=== PATIENT | female | born 1935 | race Caucasian/White ===

== ENCOUNTER → 2016-11-09 | Outpatient (CLI) | payer MEDICARE, BC ==
[~2016-11-09] MED LIST: PMX IVPB ONE; SODIUM CHLORIDE 0.9% 250 ML in EMPTY BAG 1 BAG IV PRN; SODIUM CHLORIDE 0.9% 500 ML in EMPTY BAG 1 BAG IV PRN; WATER FOR INJECTION IVPB ONE; ZOLEDRONIC ACID 5 MG in SODIUM CHLORIDE 0.9% 100 ML IV ONE; ZOLEDRONIC ACID IVPB ONE
[2016-11-09 12:42] VITALS: BP 156/73; PULSE 97; RESP 16; TEMP 98.7
== END | disposition home or self-care (01) ==
LOC: PROCWHC3 12:30
PROVIDERS: ATTEND Internal Medicine Endocrinology, Diabetes & Metabolism
DX: M88.9 Osteitis deformans of unspecified bone (principal); M81.0 Age-related osteoporosis without current pathological fracture
CPT/HCPCS: 96365; J3489

== ENCOUNTER → 2017-04-28 | Outpatient (CLI) | payer MEDICARE, BC ==
[2017-04-28 10:34] LABS: Aty Lym Flag Slight; CH 29.4; CHCM 33.8; HDW 2.73; HGB 12.7 gm/dL (11.4-16.0); MCH 30.9 pg (25.0-35.0); MCHC 35.4 g/dL (31.0-37.0); MCV 87.3 fL (80.0-100.0); Mean Platelet Volume 6.8; RBC 4.12 m/uL (3.80-5.40); RDW 13.5 % (11.5-15.5); WBC 4.9 k/uL (3.8-10.6); WBC (Perox) 4.84
[2017-04-28 11:25] LABS: Add Differential Manual Differential
[2017-04-28 11:27] LABS: Manual Review Performed; Nucleated Red Blood Cells 0 /100 WBC (0-0); Total Cells Counted 100
[2017-04-28 11:28] LABS: RBC Morphology Normal
[2017-04-28 13:44] LABS: Calcium 10.7 mg/dL (8.4-10.2); Potassium 5.5 mmol/L (3.5-5.1); Total Bilirubin 0.6 mg/dL (0.2-1.3); Total Protein 7.1 g/dL (6.3-8.2)
== END | disposition home or self-care (01) ==
LOC: LABWHC1 10:07
PROVIDERS: ATTEND Internal Medicine
DX: E03.9 Hypothyroidism, unspecified (principal); E55.9 Vitamin D deficiency, unspecified; I10 Essential (primary) hypertension; R53.83 Other fatigue
CPT/HCPCS: 36415; 80053; 82306; 83970; 84439; 84443; 84481; 85025

== ENCOUNTER → 2017-05-04 | Outpatient (CLI) | payer MEDICARE, BC ==
[2017-05-04 19:29] LABS: Hemoglobin A1C 5.9 % (4.2-6.1)
== END | disposition home or self-care (01) ==
LOC: LABWHC1 11:28
PROVIDERS: ATTEND Internal Medicine Endocrinology, Diabetes & Metabolism
DX: R73.09 Other abnormal glucose (principal)
CPT/HCPCS: 36415; 83036

== ENCOUNTER → 2017-05-19 | Outpatient (CLI) | payer MEDICARE, BC ==
[2017-05-19 09:33] LABS: ALT 28 U/L (9-52); AST 28 U/L (14-36); Alkaline Phosphatase 85 U/L (38-126); Anion Gap 8 mmol/L; Blood Urea Nitrogen 20 mg/dL (7-17); Carbon Dioxide 26 mmol/L (22-30); Chloride 107 mmol/L (98-107); Glucose 119 mg/dL (74-99); Non-African American GFR(MDRD) >60 (>60 ml/min/1.73 sqM); Potassium 4.8 mmol/L (3.5-5.1); Sodium 141 mmol/L (137-145); Total Bilirubin 0.5 mg/dL (0.2-1.3); Total Protein 7.1 g/dL (6.3-8.2)
== END | disposition home or self-care (01) ==
LOC: LABWHC1 08:48
PROVIDERS: ATTEND Internal Medicine Endocrinology, Diabetes & Metabolism
DX: E03.8 Other specified hypothyroidism (principal); E83.52 Hypercalcemia
CPT/HCPCS: 36415; 80053; 84439; 84443; 84480

== ENCOUNTER → 2017-06-29 | Outpatient (CLI) | payer MEDICARE, BC | END | disposition home or self-care (01) | LOC: LABWHC1 10:38 | PROVIDERS: ATTEND Internal Medicine Endocrinology, Diabetes & Metabolism | DX: E03.8 Other specified hypothyroidism (principal) | CPT/HCPCS: 36415; 84443 ==

== ENCOUNTER → 2017-07-21 | Outpatient (CLI) | payer MEDICARE, BC | END | disposition home or self-care (01) | LOC: LABWHC1 13:03 | PROVIDERS: ATTEND Internal Medicine Endocrinology, Diabetes & Metabolism | DX: E03.8 Other specified hypothyroidism (principal) | CPT/HCPCS: 36415; 84443 ==

== ENCOUNTER → 2017-09-21 | Outpatient (CLI) | payer MEDICARE, BC ==
[2017-09-21 13:57] LABS: ALT 30 U/L (9-52); AST 28 U/L (14-36); Alkaline Phosphatase 117 U/L (38-126); Anion Gap 8 mmol/L; Blood Urea Nitrogen 17 mg/dL (7-17); Calcium 9.8 mg/dL (8.4-10.2); Carbon Dioxide 27 mmol/L (22-30); Chloride 102 mmol/L (98-107); Glucose 118 mg/dL (74-99); Non-African American GFR(MDRD) >60 (>60 ml/min/1.73 sqM); Potassium 4.6 mmol/L (3.5-5.1); Sodium 137 mmol/L (137-145); Total Bilirubin 0.6 mg/dL (0.2-1.3); Total Protein 7.4 g/dL (6.3-8.2)
== END | disposition home or self-care (01) ==
LOC: LABWHC1 11:28
PROVIDERS: ATTEND Internal Medicine Endocrinology, Diabetes & Metabolism
DX: E03.8 Other specified hypothyroidism (principal); M88.9 Osteitis deformans of unspecified bone; E83.52 Hypercalcemia
CPT/HCPCS: 36415; 80053; 82306; 84075; 84443

== ENCOUNTER → 2018-01-03 | Outpatient (CLI) | payer MEDICARE, BC ==
[2018-01-03 14:18] LABS: Albumin 3.6 g/dL (3.5-5.0); Calcium 9.4 mg/dL (8.4-10.2); Potassium 4.3 mmol/L (3.5-5.1); Total Bilirubin 0.4 mg/dL (0.2-1.3); Total Protein 7.3 g/dL (6.3-8.2)
== END ==
LOC: LABWHC1 13:23
PROVIDERS: ATTEND Internal Medicine Endocrinology, Diabetes & Metabolism
DX: E83.52 Hypercalcemia (principal); M88.9 Osteitis deformans of unspecified bone; E03.9 Hypothyroidism, unspecified
CPT/HCPCS: 36415; 80053; 84075; 84443

== ENCOUNTER → 2018-01-13 | Outpatient (CLI) | payer MEDICARE, BC ==
[~2018-01-13] MED LIST changes: -PMX IVPB ONE; -SODIUM CHLORIDE 0.9% 250 ML in EMPTY BAG 1 BAG IV PRN; -WATER FOR INJECTION IVPB ONE; -ZOLEDRONIC ACID IVPB ONE
[2018-01-13 14:35] VITALS: BP 176/78; PULSE 73; RESP 16; TEMP 98.4
== END | disposition home or self-care (01) ==
LOC: PROCWHC3 14:08
PROVIDERS: ATTEND Internal Medicine Endocrinology, Diabetes & Metabolism
DX: M81.0 Age-related osteoporosis without current pathological fracture (principal); M88.9 Osteitis deformans of unspecified bone
CPT/HCPCS: 96365; J3489

== ENCOUNTER → 2019-03-23 | Outpatient (CLI) | payer MEDICARE, OTHER ==
[2019-03-23 14:52] LABS: HCT 37.5 % (34.0-46.0); HGB 11.9 gm/dL (11.4-16.0); MCH 28.8 pg (25.0-35.0); MCHC 31.7 g/dL (31.0-37.0); MCV 90.8 fL (80.0-100.0); Mean Platelet Volume 6.8; Platelet Count 247 k/uL (150-450); RBC 4.13 m/uL (3.80-5.40); RDW 13.7 % (11.5-15.5); WBC 3.6 k/uL (3.8-10.6)
[2019-03-23 23:13] LABS: Albumin 3.9 g/dL (3.80-4.90); Albumin/Globulin Ratio 1.34 (1.60-3.17); Anion Gap 11.6 mmol/L (4.00-12.00); Calcium 9.8 mg/dL (8.7-10.3); Carbon Dioxide 26.4 mmol/L (21.6-31.8); Globulin 2.9 g/dL (1.6-3.3); Potassium 4.4 mmol/L (3.5-5.5); Total Bilirubin 0.6 mg/dL (0.2-1.2); Total Protein 6.8 g/dL (6.2-8.2)
[2019-03-23 23:19] LABS: T4, Free (Free Thyroxine) 1.3 ng/dL (0.80-1.80)
[2019-03-24 00:13] LABS: Hemoglobin A1C 5.9 % (4.0-6.0)
== END | disposition home or self-care (01) ==
LOC: LABWHC1 13:53
PROVIDERS: ATTEND Internal Medicine Endocrinology, Diabetes & Metabolism
DX: E03.8 Other specified hypothyroidism (principal); M88.9 Osteitis deformans of unspecified bone; R73.09 Other abnormal glucose
CPT/HCPCS: 36415; 80053; 83036; 84439; 84443; 85027

== ENCOUNTER → 2019-04-05 | Outpatient (CLI) | payer MEDICARE, OTHER | END | disposition home or self-care (01) | LOC: LABWHC1 10:25 | PROVIDERS: ATTEND Internal Medicine Endocrinology, Diabetes & Metabolism | DX: M88.9 Osteitis deformans of unspecified bone (principal) | CPT/HCPCS: 36415; 84075 ==

== ENCOUNTER → 2019-04-19 | Outpatient (CLI) | payer MEDICARE, OTHER ==
[~2019-04-19] MED LIST changes: +SODIUM CHLORIDE 0.9% 500 ML 500 ML in EMPTY BAG 1 BAG IV PRN; -SODIUM CHLORIDE 0.9% 500 ML in EMPTY BAG 1 BAG IV PRN; +ZOLEDRONIC ACID 5 MG in SODIUM CHLORIDE 0.9% 100 ML IV NR; -ZOLEDRONIC ACID 5 MG in SODIUM CHLORIDE 0.9% 100 ML IV ONE
[2019-04-19 11:33] VITALS: BP 163/75; PULSE 72; RESP 16; TEMP 98
== END ==
LOC: PROCWHC3 10:06
PROVIDERS: ATTEND Internal Medicine Endocrinology, Diabetes & Metabolism
DX: M81.0 Age-related osteoporosis without current pathological fracture (principal)
CPT/HCPCS: 96365; J3489

== ENCOUNTER 2019-10-21 00:10 | Inpatient (IN) | payer MEDICARE, OTHER ==
[2019-10-21] MEDS ORDERED: SODIUM CHLORIDE 0.9% 500 ML 500 ML IV STA (00:14)
[2019-10-21] MEDS ORDERED: IBUPROFEN 600 MG TAB PO STA (00:23)
[2019-10-21] MEDS: SODIUM CHLORIDE 0.9% 500 ML 500 ML IV SCH ×2 (00:42→02:24)
--- NOTE | 2019-10-21 00:52 | ED ---
SOB HPI - General Chief Complaint: Shortness of Breath Stated Complaint: ANGELA Time Seen by Provider: 10/21/19 00:14 Source: EMS Mode of arrival: EMS Limitations: no limitations - History of Present Illness Initial Comments: Stephanie is an 84-year-old female with a history of COPD was brought to the ER today via EMS for evaluation of shortness of breath. Patient reports she has been feeling progressively worsening shortness of breath for number of days, she states she waited too long to come to the hospital now she just can't breathe. EMS reports they found the patient in a tripoding position hypoxic with oxygen saturations in the low 80s. She was treated with 3 updrafts in route to the hospital with mild improvement in her work of breathing. Oxygen saturation improved with nonrebreather mask. - Related Data Home Medications Medication Instructions Recorded Confirmed Valsartan/Hydrochlorothiazide 1 tab PO DAILY 07/03/14 04/19/19 [Diovan Hct 160-12.5 mg Tab] Budesonide [Pulmicort] 2 puff INHALATION DIRECTED PRN 04/19/19 04/19/19 Gabapentin [Neurontin] 200 mg PO HS 04/19/19 04/19/19 Levothyroxine Sodium 25 mcg PO DAILY 04/19/19 04/19/19 Allergies Allergy/AdvReac Type Severity Reaction Status Date / Time Penicillins Allergy Rash/Hives Verified 10/21/19 00:21 Review of Systems ROS Statement: Those systems with pertinent positive or pertinent negative responses have been documented in the HPI. ROS Other: All systems not noted in ROS Statement are negative. Past Medical History Past Medical History: Hypertension, Respiratory Disorder Additional Past Medical History / Comment(s): NUMBNESS AND TINGLING BILATERAL F EET. History of Any Multi-Drug Resistant Organisms: None Reported Past Surgical History: Orthopedic Surgery, Tonsillectomy, Tubal Ligation Additional Past Surgical History / Comment(s): right hip replacement, cataract surgery Past Anesthesia/Blood Transfusion Reactions: No Reported Reaction Past Psychological History: No Psychological Hx Reported Smoking Status: Former smoker Past Alcohol Use History: None Reported Past Drug Use History: None Reported General Exam - General Exam Comments Initial Comments: Physical Exam GENERAL: Moderate respiratory distress HENT: Normocephalic, Atraumatic. EYES: PERRL, EOMI PULMONARY: Tachypnea Wheezing in all lung tavarez Moderate retractions CARDIOVASCULAR: Tachycardia, regular ABDOMEN: Soft and nontender with normal bowel sounds. SKIN: Dry : Deferred NEUROLOGIC: Very hard of hearing Patient is alert and oriented x3. Moving all extremities spontaneously MUSCULOSKELETAL: Normal extremities with adequate strength and full range of motion. No lower extremity swelling or edema. No calf tenderness. PSYCHIATRIC: Normal psychiatric evaluation. Limitations: no limitations Course Vital Signs 10/21/19 10/21/19 10/21/19 00:12 00:27 00:42 Temperature 99.9 F H 100.7 F H 100.6 F H Pulse Rate 122 H 118 H 120 H Respiratory 40 H 40 H 39 H Rate Blood Pressure 158/79 161/80 O2 Sat by Pulse 94 L 97 98 Oximetry 10/21/19 10/21/19 10/21/19 00:57 01:08 01:12 Temperature 100.5 F H 100.0 F H Pulse Rate 120 H 110 H 115 H Respiratory 36 H 36 H 34 H Rate Blood Pressure 174/96 142/57 O2 Sat by Pulse 95 95 Oximetry 10/21/19 10/21/19 10/21/19 01:15 01:20 01:27 Temperature 98.6 F Pulse Rate 112 H 112 H 112 H Respiratory 31 H 30 H 28 H Rate Blood Pressure 133/58 O2 Sat by Pulse 95 Oximetry 10/21/19 02:25 Temperature Pulse Rate 100 Respiratory 34 H Rate Blood Pressure 119/53 O2 Sat by Pulse 96 Oximetry Procedures - Sepsis Sepsis Focused Exam #2 Sepsis Focused Exam Date: 10/21/19 Sepsis Focused Exam Time: 03:00 Sepsis Focused Exam Complete: Yes Vital Signs & RN Notes Reviewed: Yes Capillary Refill: < 2 Seconds: Fingers, Toes Peripheral Pulses: Normal: Radial (R), Radial (L) Skin Color: Normal for Patient Respiratory Exam: wheezes Cardiovascular Exam: regular rate Medical Decision Making - Medical Decision Making Patient was seen and evaluated history is obtained from patient and EMS 84-year-old female COPD who presents with a severe COPD exacerbation, tachypnea, tachycardia oral temp of 99 though I think this is falsely low due to tach and tachypnea Septic workup was initiated as well as flu swab being Patient was placed on BiPAP for respiratory support Labs resulted with elevated BNP consistent with CHF however chest x-ray had no obvious pleural effusions or fluid overload Labs otherwise within normal limits Patient remained on BiPAP until 3 AM at which time she was no longer tolerating her requested to taken off her oxygenation had improved, heart rate had improved, patient was removed from BiPAP Patient with a low white count likely related to viral suppression as she likely has a viral URI. Lactic acid was negative she had normal kidney function. Initially the patient been ordered at 1500 mL normal saline bolus and her ideal body weight of 48 kg however given the patient has evidence of congestive heart failure decision was made to stop the bolus after 500 mL, patient's heart rate had improved at that time. The patient's advanced age and BiPAP requirement decision was made to admit her for COPD and CHF. Patient care was discussed with Dr. nic pearson who agrees with plan for admission. - Lab Data Result diagrams: 10/21/19 00:33 10/21/19 00:33 Lab Results 10/21/19 10/21/19 10/21/19 Range/Units 00:22 00:33 00:33 WBC 2.8 L (3.8-10.6) k/uL RBC 3.99 (3.80-5.40) m/uL Hgb 11.7 (11.4-16.0) gm/dL Hct 36.5 (34.0-46.0) % MCV 91.3 (80.0-100.0) fL MCH 29.2 (25.0-35.0) pg MCHC 32.0 (31.0-37.0) g/dL RDW 13.5 (11.5-15.5) % Plt Count 197 (150-450) k/uL Neutrophils % 58 % Lymphocytes % 27 % Monocytes % 10 % Eosinophils % 2 % Basophils % 1 % Neutrophils # 1.6 (1.3-7.7) k/uL Lymphocytes # 0.7 L (1.0-4.8) k/uL Monocytes # 0.3 (0-1.0) k/uL Eosinophils # 0.0 (0-0.7) k/uL Basophils # 0.0 (0-0.2) k/uL PT (9.0-12.0) sec INR (<1.2) APTT (22.0-30.0) sec Sodium 135 L (137-145) mmol/L Potassium 3.9 (3.5-5.1) mmol/L Chloride 103 (98-107) mmol/L Carbon Dioxide 19 L (22-30) mmol/L Anion Gap 13 mmol/L BUN 21 H (7-17) mg/dL Creatinine 1.00 (0.52-1.04) mg/dL Est GFR (CKD-EPI)AfAm 60 (>60 ml/min/1.73 sqM) Est GFR (CKD-EPI)NonAf 52 (>60 ml/min/1.73 sqM) Glucose 148 H (74-99) mg/dL Plasma Lactic Acid Basilio (0.7-2.0) mmol/L Calcium 9.4 (8.4-10.2) mg/dL Total Bilirubin 0.7 (0.2-1.3) mg/dL AST 37 H (14-36) U/L ALT 20 (4-34) U/L Alkaline Phosphatase 135 H (38-126) U/L NT-Pro-B Natriuret Pep pg/mL Total Protein 8.3 H (6.3-8.2) g/dL Albumin 4.4 (3.5-5.0) g/dL Urine Color Urine Appearance (Clear) Urine pH (5.0-8.0) Ur Specific [place] (1.001-1.035) Urine Protein (Negative) Urine Glucose (UA) (Negative) Urine Ketones (Negative) Urine Blood (Negative) Urine Nitrite (Negative) Urine Bilirubin (Negative) Urine Urobilinogen (<2.0) mg/dL Ur Leukocyte Esterase (Negative) Urine RBC (0-5) /hpf Urine WBC (0-5) /hpf Ur Squamous Epith Cells (0-4) /hpf Urine Bacteria (None) /hpf Urine Mucus (None) /hpf Influenza Type A RNA Not Detected (Not Detectd) Influenza Type B (PCR) Not Detected (Not Detectd) 10/21/19 10/21/19 10/21/19 Range/Units 00:33 00:33 00:33 WBC (3.8-10.6) k/uL RBC (3.80-5.40) m/uL Hgb (11.4-16.0) gm/dL Hct (34.0-46.0) % MCV (80.0-100.0) fL MCH (25.0-35.0) pg MCHC (31.0-37.0) g/dL RDW (11.5-15.5) % Plt Count (150-450) k/uL Neutrophils % % Lymphocytes % % Monocytes % % Eosinophils % % Basophils % % Neutrophils # (1.3-7.7) k/uL Lymphocytes # (1.0-4.8) k/uL Monocytes # (0-1.0) k/uL Eosinophils # (0-0.7) k/uL Basophils # (0-0.2) k/uL PT 9.6 (9.0-12.0) sec INR 0.9 (<1.2) APTT 23.8 (22.0-30.0) sec Sodium (137-145) mmol/L Potassium (3.5-5.1) mmol/L Chloride (98-107) mmol/L Carbon Dioxide (22-30) mmol/L Anion Gap mmol/L BUN (7-17) mg/dL Creatinine (0.52-1.04) mg/dL Est GFR (CKD-EPI)AfAm (>60 ml/min/1.73 sqM) Est GFR (CKD-EPI)NonAf (>60 ml/min/1.73 sqM) Glucose (74-99) mg/dL Plasma Lactic Acid Basilio 1.7 (0.7-2.0) mmol/L Calcium (8.4-10.2) mg/dL Total Bilirubin (0.2-1.3) mg/dL AST (14-36) U/L ALT (4-34) U/L Alkaline Phosphatase (38-126) U/L NT-Pro-B Natriuret Pep 1540 pg/mL Total Protein (6.3-8.2) g/dL Albumin (3.5-5.0) g/dL Urine Color Urine Appearance (Clear) Urine pH (5.0-8.0) Ur Specific [place] (1.001-1.035) Urine Protein (Negative) Urine Glucose (UA) (Negative) Urine Ketones (Negative) Urine Blood (Negative) Urine Nitrite (Negative) Urine Bilirubin (Negative) Urine Urobilinogen (<2.0) mg/dL Ur Leukocyte Esterase (Negative) Urine RBC (0-5) /hpf Urine WBC (0-5) /hpf Ur Squamous Epith Cells (0-4) /hpf Urine Bacteria (None) /hpf Urine Mucus (None) /hpf Influenza Type A RNA (Not Detectd) Influenza Type B (PCR) (Not Detectd) 10/21/19 Range/Units 00:55 WBC (3.8-10.6) k/uL RBC (3.80-5.40) m/uL Hgb (11.4-16.0) gm/dL Hct (34.0-46.0) % MCV (80.0-100.0) fL MCH (25.0-35.0) pg MCHC (31.0-37.0) g/dL RDW (11.5-15.5) % Plt Count (150-450) k/uL Neutrophils % % Lymphocytes % % Monocytes % % Eosinophils % % Basophils % % Neutrophils # (1.3-7.7) k/uL Lymphocytes # (1.0-4.8) k/uL Monocytes # (0-1.0) k/uL Eosinophils # (0-0.7) k/uL Basophils # (0-0.2) k/uL PT (9.0-12.0) sec INR (<1.2) APTT (22.0-30.0) sec Sodium (137-145) mmol/L Potassium (3.5-5.1) mmol/L Chloride (98-107) mmol/L Carbon Dioxide (22-30) mmol/L Anion Gap mmol/L BUN (7-17) mg/dL Creatinine (0.52-1.04) mg/dL Est GFR (CKD-EPI)AfAm (>60 ml/min/1.73 sqM) Est GFR (CKD-EPI)NonAf (>60 ml/min/1.73 sqM) Glucose (74-99) mg/dL Plasma Lactic Acid Basilio (0.7-2.0) mmol/L Calcium (8.4-10.2) mg/dL Total Bilirubin (0.2-1.3) mg/dL AST (14-36) U/L ALT (4-34) U/L Alkaline Phosphatase (38-126) U/L NT-Pro-B Natriuret Pep pg/mL Total Protein (6.3-8.2) g/dL Albumin (3.5-5.0) g/dL Urine Color Yellow Urine Appearance Cloudy H (Clear) Urine pH 5.0 (5.0-8.0) Ur Specific [place] 1.014 (1.001-1.035) Urine Protein 1+ H (Negative) Urine Glucose (UA) Negative (Negative) Urine Ketones Negative (Negative) Urine Blood Small H (Negative) Urine Nitrite Negative (Negative) Urine Bilirubin Negative (Negative) Urine Urobilinogen <2.0 (<2.0) mg/dL Ur Leukocyte Esterase Negative (Negative) Urine RBC 4 (0-5) /hpf Urine WBC 6 H (0-5) /hpf Ur Squamous Epith Cells <1 (0-4) /hpf Urine Bacteria Few H (None) /hpf Urine Mucus Rare H (None) /hpf Influenza Type A RNA (Not Detectd) Influenza Type B (PCR) (Not Detectd) - EKG Data -: EKG Interpreted by Me EKG Comments: EKG was obtained due to tachycardia and shortness of breath, EKG obtained at 12:25 AM, rate is 1:15 rhythm is sinus tachycardia there is normal axis are normal intervals, WI 154, QRS 136, QTC is 398 there is no acute ST elevations or depressions no evidence of acute ischemia or infarction. Critical Care Time Critical Care Time: Yes Total Critical Care Time: 30 Critical Care Time: Critical Care Time Critical care time was exclusive of separately billable procedures and treating other patients and teaching time. Critical care was necessary to treat or prevent imminent or life-threatening deterioration. Given the critical condition in which the patient arrived, the patient was immediately assessed by myself and the nurse, and cardiac monitoring initiated due to the potential for rapid decompensation of the patient's clinical condition. During the course of the patients stay, I spent a considerable amount of time at the bedside performing serial re-evaluations of the patient's hemodynamic and clinical status because of the recognized potential threat to life or limb in this condition. I then had a chance to review not only all of the available current laboratory and radiographic studies obtained today, but I also reviewed old records available to me at the time. Additionally, any ancillary information available including property man records were reviewed. Sequential vital signs were obtained. Disposition Clinical Impression: Congestive heart failure, Acute exacerbation of chronic obstructive pulmonary disease Disposition: ADMITTED IP TO THIS HOSP Condition: Serious Is patient prescribed a controlled substance at d/c from ED?: No
[2019-10-21] MEDS ORDERED: ACETYLCYSTEINE 800 MG/4 ML VIAL INHALATION STA (00:55)
[2019-10-21] MEDS ORDERED: IPRATROPIUM-ALBUTEROL 3 ML NEB INHALATION STA (00:56)
--- NOTE | 2019-10-21 00:58 | XR ---
EXAMINATION TYPE: XR chest 1V portable DATE OF EXAM: 10/21/2019 COMPARISON: 02/27/2019 HISTORY: Difficulty breathing TECHNIQUE: Joe view FINDINGS: There is no heart failure nor confluent pneumonic infiltrate. Costophrenic angles are clear . There are chest leads. IMPRESSION: No active cardiopulmonary disease. No change.
[2019-10-21 01:03] LABS: Basophils % (A) 1 %; Eosinophils % (A) 2 %; HCT 36.5 % (34.0-46.0); HGB 11.7 gm/dL (11.4-16.0); Lymphocytes # (A) 0.7 k/uL (1.0-4.8); Lymphocytes % (A) 27 %; MCH 29.2 pg (25.0-35.0); MCV 91.3 fL (80.0-100.0); Mean Platelet Volume 7.3; Monocytes # (A) 0.3 k/uL (0-1.0); Monocytes % (A) 10 %; Neutrophils # (A) 1.6 k/uL (1.3-7.7); Neutrophils % (A) 58 %; Platelet Count 197 k/uL (150-450); RBC 3.99 m/uL (3.80-5.40); RDW 13.5 % (11.5-15.5); WBC 2.8 k/uL (3.8-10.6)
[2019-10-21 01:17] LABS: Appearance,Urine Cloudy (Clear); Bacteria,Urine Few /hpf; Bilirubin,Urine Negative (Negative); Blood,Urine Small (Negative); Color,Urine Yellow; Glucose,Urine (UA) Negative (Negative); Ketones,Urine Negative (Negative); Leukocyte Esterase,Urine Negative (Negative); Mucus,Urine Rare /hpf; Nitrite,Urine Negative (Negative); Protein,Urine 1+ (Negative); RBC,Urine 4 /hpf (0-5); Specific Gravity,Urine 1.014 (1.001-1.035); Squamous Epithelial Cell,Urine <1 /hpf (0-4); Urobilinogen,Urine <2.0 mg/dL (<2.0); WBC,Urine 6 /hpf (0-5)
[2019-10-21 01:17] LABS: INR 0.9 (<1.2); Partial Thromboplastin Time 23.8 sec (22.0-30.0); Prothrombin Time 9.6 sec (9.0-12.0)
[2019-10-21 01:19] LABS: Albumin 4.4 g/dL (3.5-5.0); Calcium 9.4 mg/dL (8.4-10.2); Potassium 3.9 mmol/L (3.5-5.1); Total Bilirubin 0.7 mg/dL (0.2-1.3); Total Protein 8.3 g/dL (6.3-8.2)
[2019-10-21] MEDS ORDERED: IPRATROPIUM-ALBUTEROL 3 ML NEB INHALATION PRN (02:05)
[2019-10-21] MEDS ORDERED: FUROSEMIDE 10 MG/ML 4 ML VIAL IV STA (02:06)
--- NOTE | 2019-10-21 08:03 | P.HPIM ---
History of Present Illness H&P Date: 10/21/19 The patient is an 84 yo F with a PMH of COPD, hx of smoking (2 PPD x 40 years, quit 15 years ago), HTN, and hypothyroidism who presented to the ED w/ cough on- going for ~ 1 week. The patient reports that she has a long standing history of smoking and felt that she had gotten bronchitis, though her breathing continued to worsen. She states that the cough the initially productive of green phlegm, though is no longer productive. She used her inhalers at home without much improvement. She denied any additional complaints. Denied chest pain, fever, chills, nausea, vomiting, diaphoresis, leg pain, or leg swelling. Denied orthopnea, PND, abdominal pain, or diarrhea. She underwent an extensive evalu ation in the ED w/ CXR that was unremarkable and EKG showing sinus tachycardia @ 115 bpm. She was initially placed on BiPAP after which her breathing improved and the BiPAP was removed. Laboratory evaluation had revealed a WBC count of 2.8, Hgb 11.7, plt 197, Na 135, K 3.9, BUN 21, Cr 1.00, BNP 1540. She is being admitted to the medicine service for management of acute COPD exacerbation. Review of Systems Pertinent positives and negatives as discussed in HPI, a complete review of systems was performed and all other systems are negative. Past Medical History Past Medical History: Hypertension, Respiratory Disorder Additional Past Medical History / Comment(s): NUMBNESS AND TINGLING BILATERAL FEET. History of Any Multi-Drug Resistant Organisms: None Reported Past Surgical History: Orthopedic Surgery, Tonsillectomy, Tubal Ligation Additional Past Surgical History / Comment(s): right hip replacement, cataract surgery Past Anesthesia/Blood Transfusion Reactions: No Reported Reaction Past Psychological History: No Psychological Hx Reported Smoking Status: Former smoker Past Alcohol Use History: None Reported Past Drug Use History: None Reported Medications and Allergies Home Medications Medication Instructions Recorded Confirmed Type Valsartan/Hydrochlorothiazide 1 tab PO DAILY 07/03/14 04/19/19 History [Diovan Hct 160-12.5 mg Tab] Budesonide [Pulmicort] 2 puff INHALATION DIRECTED PRN 04/19/19 04/19/19 History Gabapentin [Neurontin] 200 mg PO HS 04/19/19 04/19/19 History Levothyroxine Sodium 25 mcg PO DAILY 04/19/19 04/19/19 History Allergies Allergy/AdvReac Type Severity Reaction Status Date / Time Penicillins Allergy Rash/Hives Verified 10/21/19 00:21 Physical Exam Vitals: Vital Signs Temp Pulse Pulse Resp BP BP Pulse Ox 10/21/19 03:48 108 H 24 10/21/19 03:31 99.2 F 105 H 24 126/61 98 10/21/19 02:25 100 34 H 119/53 96 10/21/19 01:27 98.6 F 112 H 28 H 133/58 95 10/21/19 01:20 112 H 30 H 10/21/19 01:15 112 H 31 H 10/21/19 01:12 100.0 F H 115 H 34 H 142/57 95 10/21/19 01:08 110 H 36 H 10/21/19 00:57 100.5 F H 120 H 36 H 174/96 95 10/21/19 00:42 100.6 F H 120 H 39 H 161/80 98 10/21/19 00:27 100.7 F H 118 H 40 H 158/79 97 10/21/19 00:12 99.9 F H 122 H 40 H 94 L Intake and Output 10/20/19 10/21/19 10/21/19 22:59 06:59 14:59 Output Total 550 Balance -550 Output: Urine 550 Other: Voiding Method Toilet # Voids 1 Weight 72 kg General: non toxic, no distress, appears at stated age, obese Derm: no unusual rashes/lesions no unusual ecchymoses, warm, dry Head: atraumatic, normocephalic, symmetric Eyes: EOMI, no lid lag, anicteric sclera, pupils equal round reactive to light ENT: Nose and ears atraumatic, no thrush, no pharyngeal erythema Neck: No thyromegaly, no cervical lymphadenopathy, trachea midline, supple Mouth: no lip lesion, mucus membranes moist Cardiovascular: S1S2 reg, no murmur, positive posterior tibial pulse bilateral, no edema, capillary refill less than 2 seconds Lungs: Bilateral expiratory mild wheezing and scattered ronchi, no rales, no accessory muscle use Abdominal: soft, nontender to palpation, no guarding, no appreciable organomegaly, normal bowel sounds Ext: no gross muscle atrophy, muscle strength 5 out of 5 in all 4 extremities grossly, no contractures, Neuro: CN II-XI grossly intact, light touch intact all 4 extremities, finger to nose within normal limits, Psych: Alert, oriented, appropriate affect Results CBC & Chem 7: 10/21/19 00:33 10/21/19 00:33 Labs: Abnormal Lab Results - Last 24 Hours (Table) 10/21/19 10/21/19 10/21/19 Range/Units 00:33 00:33 00:55 WBC 2.8 L (3.8-10.6) k/uL Lymphocytes # 0.7 L (1.0-4.8) k/uL Sodium 135 L (137-145) mmol/L Carbon Dioxide 19 L (22-30) mmol/L BUN 21 H (7-17) mg/dL Glucose 148 H (74-99) mg/dL AST 37 H (14-36) U/L Alkaline Phosphatase 135 H (38-126) U/L Total Protein 8.3 H (6.3-8.2) g/dL Urine Appearance Cloudy H (Clear) Urine Protein 1+ H (Negative) Urine Blood Small H (Negative) Urine WBC 6 H (0-5) /hpf Urine Bacteria Few H (None) /hpf Urine Mucus Rare H (None) /hpf Assessment and Plan Plan: Acute COPD exacerbation with tracheobronchitis -C/w Duonebs -Start patient on Solumedrol -Pulmonary consulted (patient follows w/ Dr Bateman in clinic) -Supplemental oxygen -Influenza swab neg -Insulin sliding scale -C/w home Symbicort Elevated BNP -No documented hx of CHF -Currently not in fluid overload -Obtain Echocardiogram Leukopenia -Monitor for now -Pt w/ possible viral infection Metabolic alkalosis -Likely secondary to chronic hypercapnia -Obtain baseline ABG -Monitor for now DVT prophylaxis -Heparin subq The patient is admitted with an anticipated more than 2 midnight stay for evalu ation of acute COPD exacerbation CODE STATUS: No Code Discussed with: Patient Anticipated discharge date: 2-[address]: Home A total of 40 minutes was spent on the care of this complex patient more than 50% of the time was spent in counseling and care coordination.
[2019-10-21] MEDS ORDERED: predniSONE 20 MG TAB PO SCH (09:00)
[2019-10-21] MEDS ORDERED: MELATONIN 5 MG TABLET PO PRN (09:01)
[2019-10-21] MEDS ORDERED: ALBUTEROL NEBULIZED 2.5 MG/3 ML INHALATION PRN (09:01)
[2019-10-21] MEDS ORDERED: AZITHROMYCIN 500 MG in SODIUM CHLORIDE 0.9% 250 ML IVPB STA (09:01)
[2019-10-21] MEDS ORDERED: ONDANSETRON 4 MG/2 ML VIAL IVP PRN (09:01)
[2019-10-21] MEDS: IPRATROPIUM-ALBUTEROL 3 ML NEB INHALATION SCH ×4 (09:07→21:58)
[2019-10-21] MEDS: ACETAMINOPHEN TAB 325 MG TAB PO PRN (10:43)
[2019-10-21] MEDS: guaiFENesin 600 MG TABLET.ER PO SCH ×2 (10:44→20:24)
[2019-10-21] MEDS: LORazepam 2 MG/ML INJ IV PRN (11:01)
[2019-10-21] MEDS ORDERED: DILTIAZEM DRIP BOLUS FROM BAG 1 MG SOLN IV ONE (12:02)
[2019-10-21 12:09] LABS: Glucose,Whole Blood 139 mg/dL (75-99)
--- NOTE | 2019-10-21 12:43 | P.CNPUL ---
History of Present Illness Consult date: 10/21/19 Requesting physician: Palma Chavis Reason for consult: dyspnea, COPD Chief complaint: Shortness of breath History of present illness: This is a pleasant 84-year-old female patient who follows with Dr. Goncalves as her primary care physician. She has a history of hypertension and hypothyroidism. She is a former smoker of 50 years. Quit in 1999. She also has a history of chronic obstructive pulmonary disease with FEV1 value 81% of predicted and follows with Dr. Bateman in our office for the same. She is maintained on Pulmicort and Perforomist inhalations along with albuterol. She presented here to the emergency room shortly after midnight by EMS with worsening shortness of breath for several days prior to her arrival. She was sitting up in a tripod position her saturations were in the low 80s. She received updraft treatments in route and placed on a nonrebreather mask and her symptoms improved. She received 2 L of fluid resuscitation, 40 mg of IV Lasix 1. She was admitted for an acute exacerbation of her COPD. She is seen today on the selective care unit. She is currently awake and alert sitting up in bed. Still somewhat bronchospastic and wheezy. Still some dyspnea on minimal exertion. Tachycardic. Maintaining O2 saturations in the mid 90s on 2 L/m per nasal cannul a. White count 2.8. Hemoglobin 11.7. Creatinine 1.00. Bicarb 19. Influenza screen negative. Urine culture pending. Echocardiogram pending. Chest x-ray shows no acute pulmonary process. Review of Systems REVIEW OF SYSTEMS: CONSTITUTIONAL: Denies any recent significant weight loss or weight gain. EYES: Denies change in vision. EARS, NOSE, MOUTH, THROAT: Denies headaches, denies sore throat. CARDIOVASCULAR: Denies chest pain, palpitations or syncopal episodes. RESPIRATORY: Positive for shortness of breath, cough, congestion no hemoptysis. GASTROINTESTINAL: Denies change in appetite, denies abdominal pain GENITOURINARY: Denies hematuria, denies infections. MUSKULOSKELETAL: Denies pain, denies swelling. INTEGUMENTARY: Denies rash, denies eczema. NEUROLOGICAL: Denies recent memory loss, no recent seizure activity. PSYCHIATRIC: Denies anxiety, denies depression. HEMATOLOGIC/LYMPHATIC: Denies anemia, denies enlarged lymph nodes. Past Medical History Past Medical History: Hypertension, Respiratory Disorder Additional Past Medical History / Comment(s): 50 year smoking history however quit in 1999. Numbness and tingling of the bilateral feet History of Any Multi-Drug Resistant Organisms: None Reported Past Surgical History: Orthopedic Surgery, Tonsillectomy, Tubal Ligation Additional Past Surgical History / Comment(s): right hip replacement, cataract surgery Past Anesthesia/Blood Transfusion Reactions: No Reported Reaction Past Psychological History: No Psychological Hx Reported Smoking Status: Former smoker Past Alcohol Use History: None Reported Past Drug Use History: None Reported Additional History: Denies any significant family history. Medications and Allergies Home Medications Medication Instructions Recorded Confirmed Type Gabapentin [Neurontin] 100 - 200 mg PO HS 04/19/19 10/21/19 History Levothyroxine Sodium 25 mcg PO DAILY 04/19/19 10/21/19 History Albuterol Nebulized [Ventolin 2.5 mg INHALATION RT-TID 10/21/19 10/21/19 History Nebulized] Losartan/Hydrochlorothiazide 0.5 tab PO QAM 10/21/19 10/21/19 History [Losartan-Hctz 100-25 mg Tab] Allergies Allergy/AdvReac Type Severity Reaction Status Date / Time Penicillins Allergy Rash/Hives Verified 10/21/19 08:57 Physical Exam Vitals: Vital Signs Temp Pulse Pulse Resp BP BP Pulse Ox 10/21/19 09:22 110 H 10/21/19 09:10 102 H 97 10/21/19 08:00 101.4 F H 114 H 34 H 166/77 10/21/19 03:48 108 H 24 10/21/19 03:31 99.2 F 105 H 24 126/61 98 10/21/19 02:25 100 34 H 119/53 96 10/21/19 01:27 98.6 F 112 H 28 H 133/58 95 10/21/19 01:20 112 H 30 H 10/21/19 01:15 112 H 31 H 10/21/19 01:12 100.0 F H 115 H 34 H 142/57 95 10/21/19 01:08 110 H 36 H 10/21/19 00:57 100.5 F H 120 H 36 H 174/96 95 10/21/19 00:42 100.6 F H 120 H 39 H 161/80 98 10/21/19 00:27 100.7 F H 118 H 40 H 158/79 97 10/21/19 00:12 99.9 F H 122 H 40 H 94 L Intake and Output 10/20/19 10/21/19 10/21/19 22:59 06:59 14:59 Output Total 550 Balance -550 Output: Urine 550 Other: Voiding Method Toilet # Voids 1 1 # Bowel Movements 1 Weight 72 kg GENERAL EXAM: Alert, pleasant 84-year-old female patient, on 2 L nasal cannula, active, comfortable in no apparent distress. HEAD: Normocephalic. EYES: Normal reaction of pupils, equal size. NOSE: Clear with pink turbinates. THROAT: No erythema or exudates. NECK: No masses, no JVD. CHEST: No chest wall deformity. LUNGS: Equal air entry with bilateral end expiratory wheeze, diminished. CVS: S1 and S2 normal with no audible murmur, regular rhythm. ABDOMEN: No hepatosplenomegaly, normal bowel sounds, no guarding or rigidity. SPINE: No scoliosis or deformity SKIN: No rashes CENTRAL NERVOUS SYSTEM: No focal deficits, tone is normal in all 4 extremities. EXTREMITIES: There is no peripheral edema. No clubbing, no cyanosis. Peripheral pulses are intact. Results - Laboratory Findings CBC and BMP: 10/21/19 00:33 10/21/19 00:33 PT/INR, D-dimer PT 9.6 sec (9.0-12.0) 10/21/19 00:33 INR 0.9 (<1.2) 10/21/19 00:33 Abnormal lab findings: Abnormal Labs 10/21/19 10/21/19 10/21/19 00:33 00:33 00:55 WBC 2.8 L Lymphocytes # 0.7 L Sodium 135 L Carbon Dioxide 19 L BUN 21 H Glucose 148 H POC Glucose (mg/dL) AST 37 H Alkaline Phosphatase 135 H Total Protein 8.3 H Urine Appearance Cloudy H Urine Protein 1+ H Urine Blood Small H Urine WBC 6 H Urine Bacteria Few H Urine Mucus Rare H 10/21/19 12:07 WBC Lymphocytes # Sodium Carbon Dioxide BUN Glucose POC Glucose (mg/dL) 139 H AST Alkaline Phosphatase Total Protein Urine Appearance Urine Protein Urine Blood Urine WBC Urine Bacteria Urine Mucus - Diagnostic Findings Chest x-ray: image reviewed (No acute pulmonary process) Assessment and Plan Assessment: 1 Acute exacerbation of chronic obstructive pulmonary disease 2 Acute hypoxemic respiratory failure secondary to above 3 50 year pack per day smoking history however quit several years ago 4 Hypertension. 5 Hypothyroidism Plan The patient was seen and evaluated by Dr. Bundy. Chest x-ray and labs reviewed Continue IV Solu-Medrol, DuoNeb inhalations, Pulmicort and Perforomist inhalations Empiric antibiotics in the form of azithromycin Echocardiogram pending We'll continue to follow make further recommendations based on her clinical status I, the cosigning physician, performed a history & physical examination of the patient. Lungs sounds with bilateral end expiratory wheeze, diminished. Maint aining good O2 saturations in the 90s on 2 L/m per nasal cannula. I discussed the assessment and plan of care with my nurse practitioner, Yolis Barksdale. I attest to the above note as dictated by her. Time with Patient: Greater than 30
--- NOTE | 2019-10-21 13:01 | ECHOF ---
Referral Reason:CHF MEASUREMENTS -------- HEIGHT: 152.4 cm WEIGHT: 63.5 kg BP: 126/61 IVSd: 1.1 cm (0.6 - 1.1) LVIDd: 3.2 cm (3.9 - 5.3) LVPWd: 1.3 cm (0.6 - 1.1) IVSs: 1.6 cm LVIDs: 2.7 cm LVPWs: 1.8 cm LA Diam: 3.5 cm (2.7 - 3.8) RVIDd: 2.9 cm (< 3.3) LAESV Index (A-L): 35.61 ml/m Ao Diam: 2.9 cm (2.0 - 3.7) EPSS: 0.4 cm MV E Santiago: 0.93 m/s MV DecT: 82 ms MV A Santiago: 1.33 m/s MV E/A Ratio: 0.70 RAP: 5.00 mmHg RVSP: 39.58 mmHg MV EF SLOPE: 70.53 mm/s (70 - 150) MV EXCURSION: 16.59 mm (> 18.000) FINDINGS -------- Resting tachycardia (HR>100bpm). This was a technically difficult study with suboptimal parasternal views. The left ventricular size is normal. There is mild concentric left ventricular hypertrophy. Overa ll left ventricular systolic function is mildly impaired with, an EF between 45 - 50 %. Mid anterio r LV wall motion is hypokinetic. Apical anterior LV wall motion is hypokinetic. Apical septum L V wall motion is hypokinetic. The right ventricle is normal in size. LA is moderately dilated 34-39 ml/m2 The right atrium is normal in size. Lipomatous Hypertrophy of the atrial septum is present Aortic valve is trileaflet and is mildly thickened. The mitral valve leaflets are mild to moderately thickened. Mild mitral annular calcification pres ent. Mild mitral regurgitation is present. Mild tricuspid regurgitation present. There is mild pulmonary hypertension. The right ventricular systolic pressure, as measured by Doppler, is 39.58mmHg. The pulmonic valve was not well visualized. The aortic root size is normal. Normal inferior vena cava with normal inspiratory collapse consistent with estimated right atrial pre ssure of 5 mmHg. There is no pericardial effusion. CONCLUSIONS -------- 1. Resting tachycardia (HR>100bpm). 2. This was a technically difficult study with suboptimal parasternal views. 3. The left ventricular size is normal. 4. There is mild concentric left ventricular hypertrophy. 5. Overall left ventricular systolic function is mildly impaired with, an EF between 45 - 50 %. 6. Mid anterior LV wall motion is hypokinetic. 7. Apical anterior LV wall motion is hypokinetic. 8. Apical septum LV wall motion is hypokinetic. 9. The right ventricle is normal in size. 10. LA is moderately dilated 34-39 ml/m2 11. The right atrium is normal in size. 12. Lipomatous Hypertrophy of the atrial septum is present 13. Aortic valve is trileaflet and is mildly thickened. 14. The mitral valve leaflets are mild to moderately thickened. 15. Mild mitral annular calcification present. 16. Mild mitral regurgitation is present. 17. Mild tricuspid regurgitation present. 18. There is mild pulmonary hypertension. 19. The right ventricular systolic pressure, as measured by Doppler, is 39.58mmHg. 20. The pulmonic valve was not well visualized. 21. The aortic root size is normal. 22. Normal inferior vena cava with normal inspiratory collapse consistent with estimated right atrial pressure of 5 mmHg. 23. There is no pericardial effusion. DIRECTOR OF LABORATORY OPERATIONS: Tiffanie Mcnair RDCS
[2019-10-21 13:04] VITALS: BMI 30.9
[2019-10-21] MEDS: methylPREDNISolone SOD SUCCI 125 MG/2 ML VIAL IV SCH ×3 (13:09→23:50)
[2019-10-21] MEDS: DILTIAZEM 125 MG in SODIUM CHLORIDE 0.9% 100 ML IV SCH (13:10)
[2019-10-21] MEDS: INSULIN ASPART (NovoLOG) 100 UNIT/ML VIAL SQ SCH ×3 (13:30→21:20)
[2019-10-21] MEDS ORDERED: HEPARIN SODIUM,PORCINE 5,000 UNIT/ML 1 ML VIAL IV PRN (13:33)
[2019-10-21] MEDS ORDERED: HEPARIN SOD,PORK IN 0.45% NACL 25,000 UNIT in 0.45% NACL 1 250ML.BAG IV SCH (13:45)
[2019-10-21 14:07] LABS: HCT 32.7 % (34.0-46.0); HGB 10.9 gm/dL (11.4-16.0); MCH 29.9 pg (25.0-35.0); MCHC 33.2 g/dL (31.0-37.0); MCV 89.9 fL (80.0-100.0); Mean Platelet Volume 7.4; Platelet Count 177 k/uL (150-450); RBC 3.64 m/uL (3.80-5.40); RDW 13.6 % (11.5-15.5); WBC 2.2 k/uL (3.8-10.6)
[2019-10-21 14:23] LABS: Partial Thromboplastin Time 26.7 sec (22.0-30.0); Prothrombin Time 10.9 sec (9.0-12.0)
--- NOTE | 2019-10-21 14:27 | CONS ---
CONSULTATION This is an 84-year-old lady who has been admitted to the hospital with episode of feeling extremely feverish chills, sickness, lack of energy, fatigue. She is apparently 84 years of age, but quite remarkably active. She is a past smoker. She came into the hospital, was found to have exacerbation of COPD, placed on a BiPAP for a short while in the emergency room. After that, she improved. I was asked to see her mainly because of concern that this may be congestive heart failure. Clinically, patient appears to be febrile, fever is 101. She is seen. She looks and feels exhausted. She is also slightly tachycardic. Her clinical picture does not suggest that of any overt heart failure. Her BNP is not elevated to any significant extent. Initial labs did not suggest any elevation of lactic acid. She has flu-like illness it appears, but influenza has been negative. Chest x-ray revealed no significant abnormality. No evidence of any heart failure. Echocardiogram was performed early this morning and revealed normal LV size with mild concentric LVH and evidence of a 45%-50% ejection fraction with anteroapical hypokinesia. There is no significant pulmonary hypertension. PAST MEDICAL HISTORY: Past medical history is remarkable for hypertension and hypothyroidism on replacement therapy and COPD. ALLERGIES: PENICILLIN. MEDICATIONS: At home include losartan HCTZ 100/25 one tab daily, levothyroxine, Neurontin, and albuterol inhaler. PHYSICAL EXAMINATION: Blood pressure is 150/80, pulse rate is about 100, appears to be regular. HEENT unremarkable. Fundus was not examined by me. NECK: Supple. There is JVD of 1 cm. No carotid bruit. HEART exam reveals S1, S2 with a short systolic murmur at the base. LUNGS reveal bilateral diminished air entry. ABDOMEN is soft. Lower extremities reveal diminished pulses. Central nervous system is normal grossly. EKG revealed a sinus tachycardia with IVCD. IMPRESSION: 1. Febrile condition, probably viral infection. Advised a septic workup and the ID consult. 2. The patient is not in clinical heart failure. 3. Probable has chronic obstructive pulmonary disease with past history of smoking. 4. No evidence to suggest any overt heart failure. RECOMMENDATIONS: The patient's echocardiogram suggests CAD, but there is no evidence to suggest any active ongoing ischemia clinically. Advised to continue current medical regimen, septic workup and I will seek pulmonary evaluation. I will also check a troponin level. Thank you very much for the consult. MMODL / IJN: [id number] /
[2019-10-21 15:13] LABS: Band Neutrophils % 10 %; Basophils # (M) 0.07 k/uL (0-0.2); Lymphocytes # (M) 0.68 k/uL (1.0-4.8); Monocytes # (M) 0.11 k/uL (0-1.0); Neutrophils % (M) 51 %; Nucleated Red Blood Cells 0 /100 WBC (0-0); Total Cells Counted 100
--- NOTE | 2019-10-21 15:17 | P.PN ---
Progress Note - Text Progress Note Date: 10/21/19 Hospitalist Interval Note Patient seen and examined at bedside. Still very short of breath, cough productive of yellow sputum, no nausea or vomiting, feels that she can't cough anything up. Vital signs reviewed General: ill appearing, mild distress, appears at stated age Derm: warm, dry Head: atraumatic, normocephalic, symmetric Eyes: EOMI, no lid lag, anicteric sclera Mouth: no lip lesion, mucus membranes moist Cardiovascular: S1S2 reg, no murmur, positive posterior tibial pulse bilateral, Lungs: Rhonchi bilateral with coarse breath sounds, accessory muscle use, 3 word conversational dyspnea Abdominal: soft, nontender to palpation, no guarding, no appreciable organomegaly Ext: no gross muscle atrophy, no edema, no contractures Neuro: CN II-XI grossly intact, no focal neuro deficits Psych: Alert, oriented, appropriate affect Assessment/Plan: 1. 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 There is no charge associated with this note.
[2019-10-21 17:04] LABS: Glucose,Whole Blood 143 mg/dL (75-99)
[2019-10-21] MEDS: GABAPENTIN 100 MG CAP PO SCH (20:24)
[2019-10-21 20:36] LABS: Glucose,Whole Blood 219 mg/dL (75-99)
[2019-10-21] MEDS: FORMOTEROL FUMARATE 20 MCG/2 ML NEBU INHALATION SCH (21:58)
[2019-10-21] MEDS: BUDESONIDE 1 MG/2 ML NEBU INHALATION SCH (21:58)
[2019-10-22 04:52] LABS: HCT 38.9 % (34.0-46.0); HGB 12.2 gm/dL (11.4-16.0); MCH 29.3 pg (25.0-35.0); MCHC 31.4 g/dL (31.0-37.0); MCV 93.3 fL (80.0-100.0); Mean Platelet Volume 7.9; Platelet Count 176 k/uL (150-450); RBC 4.17 m/uL (3.80-5.40); RDW 13.7 % (11.5-15.5); WBC 1.8 k/uL (3.8-10.6)
[2019-10-22 05:10] LABS: Calcium 9.1 mg/dL (8.4-10.2); Potassium 4.5 mmol/L (3.5-5.1)
[2019-10-22 06:10] LABS: Glucose,Whole Blood 216 mg/dL (75-99)
[2019-10-22] MEDS: methylPREDNISolone SOD SUCCI 125 MG/2 ML VIAL IV SCH ×4 (06:21→23:05)
[2019-10-22] MEDS: INSULIN ASPART (NovoLOG) 100 UNIT/ML VIAL SQ SCH ×4 (06:22→21:31)
[2019-10-22] MEDS: LEVOTHYROXINE 25 MCG TAB PO SCH (06:22)
[2019-10-22] MEDS: ACETAMINOPHEN TAB 325 MG TAB PO PRN (06:26)
--- NOTE | 2019-10-22 07:51 | XR ---
EXAMINATION TYPE: XR chest 1V portable DATE OF EXAM: 10/22/2019 COMPARISON: 10/21/2019 HISTORY: Shortness of breath TECHNIQUE: Single frontal view of the chest is obtained. FINDINGS: Heart is enlarged. Subsegmental changes are seen at the left lung base. Coarsened intersti tium. Hyperinflation seen. No pneumothorax. Atherosclerotic change aorta. IMPRESSION: 1. Left basilar atelectasis or early infiltrate. 2. Correlate for COPD and chronic interstitial lung disease superimposed bronchitis or interstitial p neumonitis in the differential diagnosis
[2019-10-22] MEDS: FORMOTEROL FUMARATE 20 MCG/2 ML NEBU INHALATION SCH ×2 (08:38→20:44)
[2019-10-22] MEDS: IPRATROPIUM-ALBUTEROL 3 ML NEB INHALATION SCH ×4 (08:38→20:44)
[2019-10-22] MEDS: BUDESONIDE 1 MG/2 ML NEBU INHALATION SCH ×2 (08:38→20:44)
--- NOTE | 2019-10-22 08:39 | CONS ---
CONSULTATION DATE OF SERVICE: 10/21/2019. REASON FOR CONSULTATION: Possible sepsis. HISTORY OF PRESENT ILLNESS: The patient is an 84 -year-old female, with past medical history significant for COPD. The patient has been brought into the ER by the EMS with chief complaints of increasing shortness of breath. Apparently the patient's shortness of breath has been going on for the last few days to a week. Main symptom has been increasing shortness of breath. The patient did mention she did have a congested cough but unable to bring up any sputum. Denies having any chest pain. No URI symptoms. No nausea, no vomiting. No abdominal pain. No diarrhea. With these symptoms, the patient was evaluated by the ER physician. On arrival to the ER, the patient did have a fever of 100.7. Subsequently did spike a fever of 101.4 degrees Fahrenheit this morning. The patient noticed to be slightly leukopenic with white count 2.8. Repeat is 2.2. Liver enzymes normal. Urine has been negative. Influenza serology was negative. Initial chest x-ray reported to be negative for any acute infiltrate. The patient has been treated with Rocephin and Zithromax and infectious disease was consulted for further recommendations with concern for possible sepsis. REVIEW OF SYSTEM: Positive points have been mentioned in HPI. Rest of the systems were negative. PAST MEDICAL HISTORY: Hypertension, COPD. PAST SURGICAL HISTORY: Tonsillectomy, tubal ligation, right knee replacement, cataract surgery. SOCIAL HISTORY: Remote history of smoking. No drinking or drug use. FAMILY HISTORY: No pertinent findings noticed. ALLERGIES: PENICILLIN with a rash. No history of anaphylaxis. MEDICATIONS: The patient is currently on Tylenol DuoNeb, azithromycin, Pulmicort, diltiazem, Neurontin, and Mucinex, Hyzaar, Novolog, Synthroid, Ativan, Melatonin, Solu-Medrol, Zofran. PHYSICAL EXAMINATION: Blood pressure 101/67 with a pulse of 101, temperature 97.7, she is 94% on 4 L nasal cannula. General description is an elderly female lying in bed in no distress. No tachypnea or accessory muscles of respiration use. HEENT: Shows slight pallor. No scleral icterus. Oral mucosa membranes dry. No pharyngeal erythema. No thrush. NECK: Trachea central. No thyromegaly. LUNGS unlabored breathing, decreased breath sounds in the bases. No wheeze. Heart S1, S2. Regular rate and rhythm. ABDOMEN: Soft, no tenderness. No guarding or rigidity. EXTREMITIES: No edema of the feet. Skin examination: No rash or mass palpable. NEUROLOGICAL: Patient is awake, alert, oriented times three. Mood and affect normal. LABS: Hemoglobin is 10.9, white count 2.2, BUN of 21, creatinine 1.0. Electrolytes have been normal. Liver enzymes are normal. Influenza serology was negative. UA is negative. DIAGNOSTIC IMPRESSION AND PLAN: 1. Patient admitted to the hospital with sepsis in this patient who did have a fever and elevated white count, leukopenia with predominant respiratory symptoms more likely chronic obstructive pulmonary disease exacerbation with tracheobronchitis and apparently clinical pneumonia likely community acquired as patient currently has no other clinical focus of infection. Abdominal soft, examination, urine was negative. No evidence of any cellulitis. 2. The patient with PENICILLIN ALLERGY that will limit the number of antibiotics safe to use however no history of anaphylaxis. PLAN: 1. We will add Rocephin 1 g daily and continue Zithromax. 2. Repeat a chest x-ray, PA and lateral in the morning and check a procalcitonin level. 3. Try to obtain sputum for Gram stain and culture. 4. We will follow up on clinical condition and culture to further adjust medication if needed. Thank you for this consultation. We will follow this patient along with you. MMODL / IJN: [id number] /
[2019-10-22] MEDS ORDERED: LOSARTAN-HCTZ 50-12.5 MG 1 EACH TAB PO SCH (09:00)
[2019-10-22] MEDS: DILTIAZEM 125 MG in SODIUM CHLORIDE 0.9% 100 ML IV SCH ×2 (10:59→21:46)
[2019-10-22] MEDS: guaiFENesin 600 MG TABLET.ER PO SCH ×2 (11:00→21:10)
--- NOTE | 2019-10-22 11:01 | P.PN ---
Subjective Progress Note Date: 10/22/19 Principal diagnosis: Dyspnea, shortness of breath, COPD This is a pleasant 84-year-old female patient who follows with Dr. Goncalves as her primary care physician. She has a history of hypertension and hypothyroidism. She is a former smoker of 50 years. Quit in 1999. She also has a history of chronic obstructive pulmonary disease with FEV1 value 81% of predicted and follows with Dr. Bateman in our office for the same. She is maintained on Pulmicort and Perforomist inhalations along with albuterol. She presented here to the emergency room shortly after midnight by EMS with worsening shortness of breath for several days prior to her arrival. She was sitting up in a tripod position her saturations were in the low 80s. She received updraft treatments in route and placed on a nonrebreather mask and her symptoms improved. She received 2 L of fluid resuscitation, 40 mg of IV Lasix 1. She was admitted for an acute exacerbation of her COPD. She is seen today on the selective care unit. She is currently awake and alert sitting up in bed. Still somewhat bronchospastic and wheezy. Still some dyspnea on minimal exertion. Tachycardic. Maintaining O2 saturations in the mid 90s on 2 L/m per nasal cannula. White count 2.8. Hemoglobin 11.7. Creatinine 1.00. Bicarb 19. Influenza screen negative. Urine culture pending. Echocardiogram pending. Chest x-ray shows no acute pulmonary process. On 10/22/2019 patient seen in follow-up on selective care unit, she states her breathing has significantly improved in the last 24 hours, she is able to walk to the bathroom, though gets dyspneic with exertion, but able to tolerate activity much better compared to yesterday, she is on 4 L of oxygen her pulse ox is 99%. Afebrile, her last febrile episode was yesterday in the morning, with a temp of 101.4F. Today's labs have been reviewed, showing white blood cell count of 1.8, hemoglobin of 12.2, sodium of 139, potassium is 4.5. Troponin was elevated to 0.108. Blood culture showed no growth at the 24-hour zoraida, current antibiotic coverage is with Zithromax and Rocephin. IV steroids, nebulized bronchodilators and tinea, cardiology was consulted in view of elevated troponin, and patient is on heparin infusion Objective - Vital Signs Vital signs: Vital Signs Temp 97.5 F L 10/22/19 03:42 Pulse 88 10/22/19 09:07 Resp 22 10/22/19 03:42 BP 97/53 10/22/19 03:42 Pulse Ox 99 10/22/19 08:40 Intake & Output 10/21/19 10/22/19 10/22/19 18:59 06:59 18:59 Intake Total 118 142.668 236 Balance 118 142.668 236 Weight 72 kg 62.1 kg Intake: Intake, IV Titration 142.668 Amount Heparin Sod,Pork in 0.45% 142.668 NaCl 25,000 unit In 0.45 % NaCl 1 250ml.bag @ 12 UNITS/KG/HR 8.64 mls/hr IV .Q24H [facility] Rx#: [id number] Oral 118 236 Other: Voiding Method Toilet Toilet # Voids 5 1 2 # Bowel Movements 1 1 - Exam GENERAL EXAM: Alert, very pleasant, 84-year-old female, on 4 L of oxygen, with a pulse ox of 99% comfortable in no apparent distress. HEAD: Normocephalic/atraumatic. EYES: Normal reaction of pupils, equal size. Conjunctiva pink, sclera white. NOSE: Clear with pink turbinates. THROAT: No erythema or exudates. NECK: No masses, no JVD, no thyroid enlargement, no adenopathy. CHEST: No chest wall deformity. Symmetrical expansion. LUNGS: Equal air entry with a few scattered rhonchi, no dullness. CVS: Regular rate and rhythm, normal S1 and S2, no gallops, no murmurs, no rubs ABDOMEN: Soft, nontender. No hepatosplenomegaly, normal bowel sounds, no guarding or rigidity. EXTREMITIES: No clubbing, no edema, no cyanosis, 2+ pulses and upper and lower extremities. MUSCULOSKELETAL: Muscle strength and tone normal. SPINE: No scoliosis or deformity SKIN: No rashes CENTRAL NERVOUS SYSTEM: Alert and oriented -3. No focal deficits, tone is normal in all 4 extremities. PSYCHIATRIC: Alert and oriented -3. Appropriate affect. Intact judgment and insight. - Labs CBC & Chem 7: 10/22/19 04:06 10/22/19 04:06 Labs: Abnormal Lab Results - Last 24 Hours (Table) 10/21/19 10/21/19 10/21/19 Range/Units 12:07 13:41 17:03 WBC 2.2 L (3.8-10.6) k/uL RBC 3.64 L (3.80-5.40) m/uL Hgb 10.9 L (11.4-16.0) gm/dL Hct 32.7 L (34.0-46.0) % Lymphocytes # (Manual) 0.68 L (1.0-4.8) k/uL APTT (22.0-30.0) sec Chloride (98-107) mmol/L Carbon Dioxide (22-30) mmol/L BUN (7-17) mg/dL Creatinine (0.52-1.04) mg/dL Glucose (74-99) mg/dL POC Glucose (mg/dL) 139 H 143 H (75-99) mg/dL Troponin I (0.000-0.034) ng/mL 10/21/19 10/21/19 10/22/19 Range/Units 20:33 22:32 04:06 WBC 1.8 L (3.8-10.6) k/uL RBC (3.80-5.40) m/uL Hgb (11.4-16.0) gm/dL Hct (34.0-46.0) % Lymphocytes # (Manual) (1.0-4.8) k/uL APTT 39.3 H (22.0-30.0) sec Chloride (98-107) mmol/L Carbon Dioxide (22-30) mmol/L BUN (7-17) mg/dL Creatinine (0.52-1.04) mg/dL Glucose (74-99) mg/dL POC Glucose (mg/dL) 219 H (75-99) mg/dL Troponin I (0.000-0.034) ng/mL 10/22/19 10/22/19 10/22/19 Range/Units 04:06 04:06 06:08 WBC (3.8-10.6) k/uL RBC (3.80-5.40) m/uL Hgb (11.4-16.0) gm/dL Hct (34.0-46.0) % Lymphocytes # (Manual) (1.0-4.8) k/uL APTT (22.0-30.0) sec Chloride 109 H (98-107) mmol/L Carbon Dioxide 16 L (22-30) mmol/L BUN 34 H (7-17) mg/dL Creatinine 1.42 H (0.52-1.04) mg/dL Glucose 150 H (74-99) mg/dL POC Glucose (mg/dL) 216 H (75-99) mg/dL Troponin I 0.108 H* (0.000-0.034) ng/mL Microbiology - Last 24 Hours (Table) 10/21/19 00:33 Blood Culture - Preliminary Blood No Growth after 24 hours Assessment and Plan Plan: Assessment: #1. Acute exacerbation of chronic obstructive pulmonary disease #2. Acute hypoxemic respiratory failure , due to the above #3. Febrile illness, under investigation, possibly viral, procalcitonin level is pending #4. Leukopenia #5. Elevated troponin, rule out non-ST elevated RI #6. Mildly impaired left ventricular systolic function with an EF of 45-50%, hypokinesis of apical anterior wall, mild MR, mild TR, mild pulmonary hypertension with right-sided pressures of 39 mmHg #7. [id number] smoking history currently in remission #8. Hypertension #9. Hypothyroidism Plan: Continue with current antibiotic coverage, blood culture so far has shown no growth, afebrile this morning, hemodynamically stable, breathing easier today, tolerating ambulation, and FiO2, send a sputum culture, today's chest x-ray has been reviewed showing early infiltrates or atelectasis at the left base. Continue with steroids, nebulized bronchodilators, send a sputum culture. Cardiology has evaluated the patient in regards to elevated troponin, patient denies any chest pain. Echocardiogram results have been noted. We'll continue to follow I performed a history & physical examination of the patient and discussed their management with my nurse practitioner, Bre Lozoya. I reviewed the nurse practitioner's note and agree with the documented findings and plan of care. Lung sounds are positive for a few scattered rhonchi. The findings and the impression was discussed with the patient. I attest to the documentation by the nurse practitioner. Time with Patient: Less than 30
[2019-10-22] MEDS: AZITHROMYCIN 500 MG in SODIUM CHLORIDE 0.9% 250 ML IVPB SCH (11:09)
[2019-10-22 11:39] LABS: Glucose,Whole Blood 178 mg/dL (75-99)
[2019-10-22] MEDS: APIXABAN 2.5 MG TABLET PO SCH (13:11)
[2019-10-22] MEDS: SODIUM CHLORIDE 0.45% 1,000 ML IV SCH (13:43)
[2019-10-22 14:55] LABS: Neutrophils % (M) 12 %
[2019-10-22 14:56] LABS: Band Neutrophils % 13 %; Eosinophils # (M) 0.02 k/uL (0-0.7); Lymphocytes # (M) 0.79 k/uL (1.0-4.8); Metamyelocytes # (M) 0.18 k/uL (0); Metamyelocytes % 10 %; Monocytes # (M) 0.32 k/uL (0-1.0); Myelocytes # (M) 0.07 k/uL (0); Myelocytes % 4 %; Nucleated Red Blood Cells 0 /100 WBC (0-0); Rouleaux Present; Total Cells Counted 200
[2019-10-22 14:57] LABS: Poikilocytosis (M) Present
--- NOTE | 2019-10-22 15:36 | PN ---
PROGRESS NOTE This lady is in atrial fib. Her rate is much better controlled. She is hemodynamically stable. Her fever is down and septic workup so far is negative. Vitals are stable. S1-S2 heard normally. Irregular rhythm noted. Short systolic murmur noted. Lungs reveal improved air entry. Abdomen and lower extremity exam unchanged. I am recommending Eliquis and also metoprolol tartrate 25 mg t.i.d. for rate control. Based on clinical condition, I will make further recommendations. We will gradually increase activity. MMODL / IJN: [id number] /
--- NOTE | 2019-10-22 16:40 | P.PN ---
Subjective Progress Note Date: 10/22/19 (delayed charting seen at 1030) Principal diagnosis: shortness of breath Patient is an 84 yo CF with a hx of HTN, COPD, Hypothyrodism, and prior tobacco abuse who presented to the emergency department with complaints of cough and shortness of breath. In the emergency department she underwent and extensive evaluation. She was tachycardiac on arrival and EKG showed sinus tach,she was also tachypnic with pursed lip breathing. Initial lab work showed neutropenia with a WBC of 2.8, sodium 135, BUN 21, creatinine 1, alkaline phosphatase 135. Urinalysis was negative. Influenza was negative. Chest x-ray showed no active cardiopulmonary disease. Her BNP was within normal for age. She was diagnosed with COPD exacerbation and acute bronchitis. She was started on antibiotics, steroids, and bronchodilators. She was admitted to the selective care unit. Initially she had been on BiPAP therapy however that was able to be removed. She was noted to have a murmur and an echocardiogram was ordered. She developed atrial fibrillation with rapid ventricular response and was placed on a Cardizem and heparin drip. Echocardiogram came back with ejection fraction 45-50% and global hypokinesis of the left ventricle. She seen by pulmonary who agreed with current management. On the morning of 10/22 she converted to normal sinus rhythm and her Cardizem drip was discontinued and she was converted to Eliquis. Repeat chest x-ray showed possible developing infiltrate in the left base. Rocephin was also ordered. Patient seen and examined at bedside. She reports that her breathing is much better than yesterday. She denies any chest pain or palpitations. No nausea or vomiting. 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 We discussed the importance of follow-up with cardiology for further evaluation. He also discussed risks and benefits of Eliquis therapy. She has never had a GI bleed, no recent falls, no blood in her urine, or no bloody nose. She would want to take Eliquis 2 reduce her risk of stroke she is typically very active 84-year-old and drives, does all of her own ADLs, and goes grocery shopping. Objective - Vital Signs Vital signs: Vital Signs Temp 97.9 F 10/22/19 08:00 Pulse 88 10/22/19 12:40 Resp 19 10/22/19 12:00 BP 88/52 10/22/19 12:00 Pulse Ox 94 L 10/22/19 12:00 Intake & Output 10/21/19 10/22/19 10/22/19 18:59 06:59 18:59 Intake Total 118 142.668 472 Balance 118 142.668 472 Weight 72 kg 62.1 kg Intake: Intake, IV Titration 142.668 Amount Heparin Sod,Pork in 0.45% 142.668 NaCl 25,000 unit In 0.45 % NaCl 1 250ml.bag @ 12 UNITS/KG/HR 8.64 mls/hr IV .Q24H [facility] Rx#: [id number] Oral 118 472 Other: Voiding Method Toilet Toilet Toilet # Voids 5 1 2 # Bowel Movements 1 1 - Exam General: ill appearing, no distress, appears younger than stated age Derm: warm, dry Head: atraumatic, normocephalic, symmetric Eyes: EOMI, no lid lag, anicteric sclera Mouth: no lip lesion, mucus membranes moist Cardiovascular: S1S2 reg, no murmur, positive posterior tibial pulse bilateral, Lungs: wheeze and rhonchi bilateral imprved from yesterday , no accessory muscle use Abdominal: soft, nontender to palpation, no guarding, no appreciable organomegaly Ext: no gross muscle atrophy, no edema, no contractures Neuro: CN II-XI grossly intact, no focal neuro deficits Psych: Alert, oriented, appropriate affect - Labs CBC & Chem 7: 10/22/19 04:06 10/22/19 04:06 Labs: Abnormal Lab Results - Last 24 Hours (Table) 10/21/19 10/21/19 10/21/19 Range/Units 17:03 20:33 22:32 WBC (3.8-10.6) k/uL Neutrophils # (Manual) (1.3-7.7) k/uL Lymphocytes # (Manual) (1.0-4.8) k/uL Metamyelocytes # (Man) (0) k/uL Myelocytes # (Manual) (0) k/uL APTT 39.3 H (22.0-30.0) sec Chloride (98-107) mmol/L Carbon Dioxide (22-30) mmol/L BUN (7-17) mg/dL Creatinine (0.52-1.04) mg/dL Glucose (74-99) mg/dL POC Glucose (mg/dL) 143 H 219 H (75-99) mg/dL Troponin I (0.000-0.034) ng/mL 10/22/19 10/22/19 10/22/19 Range/Units 04:06 04:06 04:06 WBC 1.8 L (3.8-10.6) k/uL Neutrophils # (Manual) 0.40 L* (1.3-7.7) k/uL Lymphocytes # (Manual) 0.79 L (1.0-4.8) k/uL Metamyelocytes # (Man) 0.18 H (0) k/uL Myelocytes # (Manual) 0.07 H (0) k/uL APTT (22.0-30.0) sec Chloride 109 H (98-107) mmol/L Carbon Dioxide 16 L (22-30) mmol/L BUN 34 H (7-17) mg/dL Creatinine 1.42 H (0.52-1.04) mg/dL Glucose 150 H (74-99) mg/dL POC Glucose (mg/dL) (75-99) mg/dL Troponin I 0.108 H* (0.000-0.034) ng/mL 10/22/19 10/22/19 Range/Units 06:08 11:38 WBC (3.8-10.6) k/uL Neutrophils # (Manual) (1.3-7.7) k/uL Lymphocytes # (Manual) (1.0-4.8) k/uL Metamyelocytes # (Man) (0) k/uL Myelocytes # (Manual) (0) k/uL APTT (22.0-30.0) sec Chloride (98-107) mmol/L Carbon Dioxide (22-30) mmol/L BUN (7-17) mg/dL Creatinine (0.52-1.04) mg/dL Glucose (74-99) mg/dL POC Glucose (mg/dL) 216 H 178 H (75-99) mg/dL Troponin I (0.000-0.034) ng/mL Microbiology - Last 24 Hours (Table) 10/21/19 12:08 Blood Culture - Preliminary Blood No Growth after 24 hours 10/21/19 00:33 Blood Culture - Preliminary Blood No Growth after 24 hours Assessment and Plan Assessment: Acute exacerbation of COPD with acute purulent bronchitis with sepsis -Possible developing pneumonia left base. Repeat chest x-ray in a.m. -Continue with Zithromax, add Rocephin. Patient's penicillin ALLERGY occurred greater than 40 years ago and was a rash. -Continue with steroids, DuoNeb, budesonide, and formoterol. -Pulmonary hygiene -Await pro-calcitonin -Await sputum cultures and blood cultures New-onset atrial fibrillation with rapid ventricular response -Now in normal sinus rhythm -Heparin drip transitioned to Eliquis. -Off Cardizem drip and started on oral Lopressor. -Check TSH -cardiology recommendations MYAH likely secondary to dehydration and increased work of breathing as well as hypoperfusion secondary to atrial fibrillation for rapid ventricular response. -Stop hydrochlorothiazide, losartan -Repeat basic metabolic profile in a.m. 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% associated with left ventricular hypokinesis -Continue with beta jorge, are on hold secondary to MYAH plan to restart prior to discharge -Cardiology recommendations -Likely will need outpatient ischemic evaluation Hypothyroidism -Continue with Synthroid Elevated troponin, Lab abnormality - due to A fib with RVR - cardio recs Acute hypoxic respiratory failure, resolved DVT prophylaxis: Katie Discussed with: Patient, nursing, cardio Anticipated discharge: 2-[address]: home with home health A total of 35 minutes was spent on the care of this complex patient more than 50% of the time was spent in counseling and care coordination.
[2019-10-22 16:52] LABS: Glucose,Whole Blood 169 mg/dL (75-99)
[2019-10-22] MEDS: METOPROLOL TARTRATE 25 MG TAB PO SCH ×2 (17:08→21:10)
[2019-10-22] MEDS: GABAPENTIN 100 MG CAP PO SCH (21:10)
[2019-10-22 21:26] LABS: Glucose,Whole Blood 173 mg/dL (75-99)
[2019-10-22] MEDS: LORazepam 2 MG/ML INJ IV PRN (23:05)
--- NOTE | 2019-10-22 23:14 | PN ---
PROGRESS NOTE DATE OF SERVICE: 10/22/2019 REASON FOR FOLLOWUP: Fever, possible pneumonia. INTERVAL HISTORY: The patient is currently afebrile. The patient is breathing slightly comfortably. The patient continued to have a congested cough but not bringing up any sputum. No nausea, no vomiting. No abdominal pain. No diarrhea. PHYSICAL EXAMINATION: Blood pressure is 113/59 with a pulse of 98, temperature 98. She is 95% on 3 L nasal cannula. General description is an elderly female lying in bed in no distress. Respiratory system: Unlabored breathing. Coarse breath sounds bilaterally. Occasional wheeze. Heart S1, S2. Regular rate and rhythm. ABDOMEN: Soft, no tenderness. LABS: Hemoglobin is 12.1, white count 10.8, with a BUN of 34, creatinine 1.42. Troponin mildly elevated. Blood culture has been negative. She was unable to provide any sputum. Chest x-ray repeated this morning, . DIAGNOSTIC IMPRESSION/PLAN: Patient admitted to the hospital with increasing shortness of breath, cough and did have a fever and concern likely for left lower lobe pneumonia, community acquired. Patient is currently on Rocephin and azithromycin to continue to try to obtain a sputum to narrow down antibiotics. Continue supportive care. MMODL / IJN: [id number] /
[2019-10-23 06:17] LABS: Glucose,Whole Blood 176 mg/dL (75-99)
[2019-10-23 06:43] LABS: Basophils % (A) 0 %; Eosinophils % (A) 0 %; HCT 30.1 % (34.0-46.0); Lymphocytes # (A) 0.4 k/uL (1.0-4.8); Lymphocytes % (A) 14 %; MCH 30.1 pg (25.0-35.0); MCV 91.1 fL (80.0-100.0); Mean Platelet Volume 8.2; Monocytes # (A) 0.2 k/uL (0-1.0); Monocytes % (A) 9 %; Neutrophils # (A) 1.9 k/uL (1.3-7.7); Neutrophils % (A) 72 %; Platelet Count 175 k/uL (150-450); RDW 13.8 % (11.5-15.5); WBC 2.7 k/uL (3.8-10.6)
[2019-10-23 06:45] LABS: HGB 9.9 gm/dL (11.4-16.0)
[2019-10-23] MEDS: methylPREDNISolone SOD SUCCI 125 MG/2 ML VIAL IV SCH ×2 (06:49→19:39)
[2019-10-23] MEDS: LEVOTHYROXINE 25 MCG TAB PO SCH (06:49)
[2019-10-23] MEDS: INSULIN ASPART (NovoLOG) 100 UNIT/ML VIAL SQ SCH ×4 (06:50→20:45)
[2019-10-23] MEDS: SODIUM CHLORIDE 0.45% 1,000 ML IV SCH (06:52)
[2019-10-23 07:34] LABS: Calcium 8.5 mg/dL (8.4-10.2)
[2019-10-23] MEDS: BUDESONIDE 1 MG/2 ML NEBU INHALATION SCH ×2 (08:07→19:07)
[2019-10-23] MEDS: FORMOTEROL FUMARATE 20 MCG/2 ML NEBU INHALATION SCH ×2 (08:08→19:07)
[2019-10-23] MEDS: IPRATROPIUM-ALBUTEROL 3 ML NEB INHALATION SCH ×4 (08:08→19:07)
[2019-10-23] MEDS: guaiFENesin 600 MG TABLET.ER PO SCH ×2 (09:36→20:55)
[2019-10-23] MEDS: METOPROLOL TARTRATE 25 MG TAB PO SCH ×3 (09:37→20:56)
[2019-10-23] MEDS: AZITHROMYCIN 500 MG in SODIUM CHLORIDE 0.9% 250 ML IVPB SCH (09:37)
[2019-10-23] MEDS: APIXABAN 2.5 MG TABLET PO SCH (09:37)
[2019-10-23 11:58] LABS: Glucose,Whole Blood 146 mg/dL (75-99)
--- NOTE | 2019-10-23 14:52 | P.PN ---
Subjective Progress Note Date: 10/23/19 This is a pleasant 84-year-old female patient who follows with Dr. Goncalves as her primary care physician. She has a history of hypertension and hypothyroidism. She is a former smoker of 50 years. Quit in 1999. She also has a history of chronic obstructive pulmonary disease she presented to the emergency room with symptoms of shortness of breath, she currently receiving treatment for acute exacerbation of COPD. Cardiology consultation was initially requested because of atrial fibrillation with a rapid ventricular response. Patient continues to be in atrial fibrillation today, she is on Eliquis for anticoagulation her heart rate is in the 80s to 90s, blood pressure 134/70. Ejection fraction 45-50%.mid anterior apical anterior and apical septal wall motion hypokinesia is noted.patient has a nonspecific intraventricular block, mild wall motion abnormality on echo. Overall the patient is stable today. She is on Eliquis for anticoagulation. Objective - Vital Signs Vital signs: Vital Signs Temp 98.2 F 10/23/19 08:00 Pulse 68 10/23/19 12:00 Resp 18 10/23/19 12:00 BP 127/58 10/23/19 12:00 Pulse Ox 96 10/23/19 12:00 Intake & Output 10/22/19 10/23/19 10/23/19 18:59 06:59 18:59 Intake Total 708 240 Balance 708 240 Weight 63.7 kg Intake: Oral 708 240 Other: Voiding Method Toilet Toilet # Voids 2 1 0 # Bowel Movements 1 1 - Exam GENERAL EXAM: Alert, pleasant 84-year-old female patient, on 2 L nasal cannula, active, comfortable in no apparent distress. HEAD: Normocephalic. EYES: Normal reaction of pupils, equal size. NOSE: Clear with pink turbinates. THROAT: No erythema or exudates. NECK: No masses, no JVD. CHEST: No chest wall deformity. LUNGS: Equal air entry with bilateral end expiratory wheeze, diminished. CVS: S1 and S2 regularly irregular with no audible murmur, regular rhythm. ABDOMEN: No hepatosplenomegaly, normal bowel sounds, no guarding or rigidity. SPINE: No scoliosis or deformity SKIN: No rashes CENTRAL NERVOUS SYSTEM: No focal deficits, tone is normal in all 4 extremities. EXTREMITIES: There is no peripheral edema. No clubbing, no cyanosis. Peripheral pulses are intact. - Labs CBC & Chem 7: 10/23/19 06:11 10/23/19 06:11 Labs: Abnormal Lab Results - Last 24 Hours (Table) 10/22/19 10/22/19 10/22/19 Range/Units 04:06 04:06 16:51 WBC (3.8-10.6) k/uL RBC (3.80-5.40) m/uL Hgb (11.4-16.0) gm/dL Hct (34.0-46.0) % Neutrophils # (Manual) 0.40 L* (1.3-7.7) k/uL Lymphocytes # (1.0-4.8) k/uL Lymphocytes # (Manual) 0.79 L (1.0-4.8) k/uL Metamyelocytes # (Man) 0.18 H (0) k/uL Myelocytes # (Manual) 0.07 H (0) k/uL Sodium (137-145) mmol/L Carbon Dioxide (22-30) mmol/L BUN (7-17) mg/dL Creatinine (0.52-1.04) mg/dL Glucose (74-99) mg/dL POC Glucose (mg/dL) 169 H (75-99) mg/dL Procalcitonin 13.05 H (0.02-0.09) ng/mL 10/22/19 10/23/19 10/23/19 Range/Units 21:25 06:11 06:11 WBC 2.7 L (3.8-10.6) k/uL RBC 3.30 L (3.80-5.40) m/uL Hgb 9.9 L D (11.4-16.0) gm/dL Hct 30.1 L (34.0-46.0) % Neutrophils # (Manual) (1.3-7.7) k/uL Lymphocytes # 0.4 L (1.0-4.8) k/uL Lymphocytes # (Manual) (1.0-4.8) k/uL Metamyelocytes # (Man) (0) k/uL Myelocytes # (Manual) (0) k/uL Sodium 133 L (137-145) mmol/L Carbon Dioxide 17 L (22-30) mmol/L BUN 51 H (7-17) mg/dL Creatinine 1.53 H (0.52-1.04) mg/dL Glucose 171 H (74-99) mg/dL POC Glucose (mg/dL) 173 H (75-99) mg/dL Procalcitonin (0.02-0.09) ng/mL 10/23/19 10/23/19 Range/Units 06:16 11:44 WBC (3.8-10.6) k/uL RBC (3.80-5.40) m/uL Hgb (11.4-16.0) gm/dL Hct (34.0-46.0) % Neutrophils # (Manual) (1.3-7.7) k/uL Lymphocytes # (1.0-4.8) k/uL Lymphocytes # (Manual) (1.0-4.8) k/uL Metamyelocytes # (Man) (0) k/uL Myelocytes # (Manual) (0) k/uL Sodium (137-145) mmol/L Carbon Dioxide (22-30) mmol/L BUN (7-17) mg/dL Creatinine (0.52-1.04) mg/dL Glucose (74-99) mg/dL POC Glucose (mg/dL) 176 H 146 H (75-99) mg/dL Procalcitonin (0.02-0.09) ng/mL Microbiology - Last 24 Hours (Table) 10/21/19 12:08 Blood Culture - Preliminary Blood No Growth after 48 hours 10/21/19 00:33 Blood Culture - Preliminary Blood No Growth after 48 hours Assessment and Plan Plan: Assessment: 1 Acute exacerbation of chronic obstructive pulmonary disease 2 Acute hypoxemic respiratory failure secondary to above 3 50 year pack per day smoking history however quit several years ago 4 Hypertension. 5 Hypothyroidism 6 paroxysmal atrial fibrillation Plan We will continue patient on her current medications. Continue anticoagulation in the form of Eliquis. DNP note has been reviewed, I agree with a documented findings and plan of care. Patient was seen and examined.
--- NOTE | 2019-10-23 15:57 | P.PN ---
Subjective Progress Note Date: 10/23/19 Principal diagnosis: Dyspnea, shortness of breath, COPD This is a pleasant 84-year-old female patient who follows with Dr. Goncalves as her primary care physician. She has a history of hypertension and hypothyroidism. She is a former smoker of 50 years. Quit in 1999. She also has a history of chronic obstructive pulmonary disease with FEV1 value 81% of predicted and follows with Dr. Bateman in our office for the same. She is maintained on Pulmicort and Perforomist inhalations along with albuterol. She presented here to the emergency room shortly after midnight by EMS with worsening shortness of breath for several days prior to her arrival. She was sitting up in a tripod position her saturations were in the low 80s. She received updraft treatments in route and placed on a nonrebreather mask and her symptoms improved. She received 2 L of fluid resuscitation, 40 mg of IV Lasix 1. She was admitted for an acute exacerbation of her COPD. She is seen today on the selective care unit. She is currently awake and alert sitting up in bed. Still somewhat bronchospastic and wheezy. Still some dyspnea on minimal exertion. Tachycardic. Maintaining O2 saturations in the mid 90s on 2 L/m per nasal cannula. White count 2.8. Hemoglobin 11.7. Creatinine 1.00. Bicarb 19. Influenza screen negative. Urine culture pending. Echocardiogram pending. Chest x-ray shows no acute pulmonary process. On 10/22/2019 patient seen in follow-up on selective care unit, she states her breathing has significantly improved in the last 24 hours, she is able to walk to the bathroom, though gets dyspneic with exertion, but able to tolerate activity much better compared to yesterday, she is on 4 L of oxygen her pulse ox is 99%. Afebrile, her last febrile episode was yesterday in the morning, with a temp of 101.4F. Today's labs have been reviewed, showing white blood cell count of 1.8, hemoglobin of 12.2, sodium of 139, potassium is 4.5. Troponin was elevated to 0.108. Blood culture showed no growth at the 24-hour zoraida, current antibiotic coverage is with Zithromax and Rocephin. IV steroids, nebulized bronchodilators and tinea, cardiology was consulted in view of elevated troponin, and patient is on heparin infusion On 10/23/2019 patient seen in follow-up on selective care unit. She is awake and alert, in no acute distress, breathing is improving, she remains on 4 L of oxygen with a pulse ox of 96%, vital signs are stable, lung sounds reveal coarse rales at bilateral bases, but overall patient states she is breathing easier. Today's labs have been reviewed, showing improving white blood cell count with a white blood cell up to 2.7, hemoglobin is 9.9, sodium is 133, potassium is 4.0, chloride is 103, CO2 is 17, slight worsening of renal profile, with BUN of 51 and creatinine of 1.53. She is tolerating ambulation. She was able to get a shower and take a shower. Still has some exertional dyspnea, but no acute distress, blood cultures have revealed no growth at the 48 hour zoraida. She is on a combination of azithromycin and Rocephin, and IV steroids Objective - Vital Signs Vital signs: Vital Signs Temp 98.2 F 10/23/19 08:00 Pulse 68 10/23/19 12:00 Resp 18 10/23/19 12:00 BP 127/58 10/23/19 12:00 Pulse Ox 96 10/23/19 12:00 Intake & Output 10/22/19 10/23/19 10/23/19 18:59 06:59 18:59 Intake Total 708 240 Balance 708 240 Weight 63.7 kg Intake: Oral 708 240 Other: Voiding Method Toilet Toilet # Voids 2 1 0 # Bowel Movements 1 1 0 - Exam GENERAL EXAM: Alert, very pleasant, 84-year-old female, on 4 L of oxygen, with a pulse ox of 99% comfortable in no apparent distress. HEAD: Normocephalic/atraumatic. EYES: Normal reaction of pupils, equal size. Conjunctiva pink, sclera white. NOSE: Clear with pink turbinates. THROAT: No erythema or exudates. NECK: No masses, no JVD, no thyroid enlargement, no adenopathy. CHEST: No chest wall deformity. Symmetrical expansion. LUNGS: Equal air entry with a few scattered rhonchi, no dullness. CVS: Regular rate and rhythm, normal S1 and S2, no gallops, no murmurs, no rubs ABDOMEN: Soft, nontender. No hepatosplenomegaly, normal bowel sounds, no guarding or rigidity. EXTREMITIES: No clubbing, no edema, no cyanosis, 2+ pulses and upper and lower extremities. MUSCULOSKELETAL: Muscle strength and tone normal. SPINE: No scoliosis or deformity SKIN: No rashes CENTRAL NERVOUS SYSTEM: Alert and oriented -3. No focal deficits, tone is normal in all 4 extremities. PSYCHIATRIC: Alert and oriented -3. Appropriate affect. Intact judgment and insight. - Labs CBC & Chem 7: 10/23/19 06:11 10/23/19 06:11 Labs: Abnormal Lab Results - Last 24 Hours (Table) 10/22/19 10/22/19 10/22/19 Range/Units 04:06 16:51 21:25 WBC (3.8-10.6) k/uL RBC (3.80-5.40) m/uL Hgb (11.4-16.0) gm/dL Hct (34.0-46.0) % Lymphocytes # (1.0-4.8) k/uL Sodium (137-145) mmol/L Carbon Dioxide (22-30) mmol/L BUN (7-17) mg/dL Creatinine (0.52-1.04) mg/dL Glucose (74-99) mg/dL POC Glucose (mg/dL) 169 H 173 H (75-99) mg/dL Procalcitonin 13.05 H (0.02-0.09) ng/mL 10/23/19 10/23/19 10/23/19 Range/Units 06:11 06:11 06:16 WBC 2.7 L (3.8-10.6) k/uL RBC 3.30 L (3.80-5.40) m/uL Hgb 9.9 L D (11.4-16.0) gm/dL Hct 30.1 L (34.0-46.0) % Lymphocytes # 0.4 L (1.0-4.8) k/uL Sodium 133 L (137-145) mmol/L Carbon Dioxide 17 L (22-30) mmol/L BUN 51 H (7-17) mg/dL Creatinine 1.53 H (0.52-1.04) mg/dL Glucose 171 H (74-99) mg/dL POC Glucose (mg/dL) 176 H (75-99) mg/dL Procalcitonin (0.02-0.09) ng/mL 10/23/19 Range/Units 11:44 WBC (3.8-10.6) k/uL RBC (3.80-5.40) m/uL Hgb (11.4-16.0) gm/dL Hct (34.0-46.0) % Lymphocytes # (1.0-4.8) k/uL Sodium (137-145) mmol/L Carbon Dioxide (22-30) mmol/L BUN (7-17) mg/dL Creatinine (0.52-1.04) mg/dL Glucose (74-99) mg/dL POC Glucose (mg/dL) 146 H (75-99) mg/dL Procalcitonin (0.02-0.09) ng/mL Microbiology - Last 24 Hours (Table) 10/21/19 12:08 Blood Culture - Preliminary Blood No Growth after 48 hours 10/21/19 00:33 Blood Culture - Preliminary Blood No Growth after 48 hours Assessment and Plan Plan: Assessment: #1. Acute exacerbation of chronic obstructive pulmonary disease, with possibility of left lower lobe pneumonia or atelectasis in the left lower base #2. Acute hypoxemic respiratory failure, due to the above #3. Febrile illness, under investigation, possibly viral, procalcitonin level is pending #4. Leukopenia #5. Elevated troponin, rule out non-ST elevated [place] #6. Mildly impaired left ventricular systolic function with an EF of 45-50%, hypokinesis of apical anterior wall, mild MR, mild TR, mild pulmonary hypertension with right-sided pressures of 39 mmHg #7. [id number] smoking history currently in remission #8. Hypertension #9. Hypothyroidism Plan: Continue current antibiotic coverage, no fever spikes in the last 24 hours, blood cultures have shown no growth so far, continue IV steroids, continue breathing treatments, follow-up chest x-ray tomorrow, wean FiO2 I performed a history & physical examination of the patient and discussed their management with my nurse practitioner, Bre Lozoya. I reviewed the nurse practitioner's note and agree with the documented findings and plan of care. Lung sounds are positive for a few scattered rhonchi. The findings and the impression was discussed with the patient. I attest to the documentation by the nurse practitioner. Time with Patient: Less than 30
[2019-10-23 16:53] LABS: Glucose,Whole Blood 249 mg/dL (75-99)
[2019-10-23] MEDS: methylPREDNISolone SOD SUCCI 40 MG/ML 1 ML VIAL IV SCH ×2 (17:53→23:35)
--- NOTE | 2019-10-23 18:48 | P.PN ---
Subjective Progress Note Date: 10/23/19 (delayed charting seen at 1230) Principal diagnosis: shortness of breath Patient is an 84 yo CF with a hx of HTN, COPD, Hypothyrodism, and prior tobacco abuse who presented to the emergency department with complaints of cough and shortness of breath. In the emergency department she underwent and extensive evaluation. She was tachycardiac on arrival and EKG showed sinus tach,she was also tachypnic with pursed lip breathing. Initial lab work showed neutropenia with a WBC of 2.8, sodium 135, BUN 21, creatinine 1, alkaline phosphatase 135. Urinalysis was negative. Influenza was negative. Chest x-ray showed no active cardiopulmonary disease. Her BNP was within normal for age. She was diagnosed with COPD exacerbation and acute bronchitis. She was started on antibiotics, steroids, and bronchodilators. She was admitted to the selective care unit. Initially she had been on BiPAP therapy however that was able to be removed. She was noted to have a murmur and an echocardiogram was ordered. She developed atrial fibrillation with rapid ventricular response and was placed on a Cardizem and heparin drip. Echocardiogram came back with ejection fraction 45-50% and global hypokinesis of the left ventricle. She seen by pulmonary who agreed with current management. On the morning of 10/22 she converted to normal sinus rhythm and her Cardizem drip was discontinued and she was converted to Eliquis. Repeat chest x-ray showed possible developing infiltrate in the left base. Rocephin was added to zithromax. Procalcitonin was elevated consistent with pneumonia. Patient seen and examined at bedside with family present. Feeling much better than on admission. No nausea, vomiting, had 2 episodes of loose stool but no consistent diarrhea. No abdominal pain. Feels as though she is getting stronger every day. Objective - Vital Signs Vital signs: Vital Signs Temp 98.2 F 10/23/19 08:00 Pulse 68 10/23/19 12:00 Resp 18 10/23/19 12:00 BP 127/58 10/23/19 12:00 Pulse Ox 96 10/23/19 12:00 Intake & Output 10/22/19 10/23/19 10/23/19 18:59 06:59 18:59 Intake Total 708 480 Balance 708 480 Weight 63.7 kg Intake: Oral 708 480 Other: Voiding Method Toilet Toilet # Voids 2 1 1 # Bowel Movements 1 1 0 - Exam General: Nontoxic, no distress, appears younger than stated age Derm: warm, dry Head: atraumatic, normocephalic, symmetric Eyes: EOMI, no lid lag, anicteric sclera Mouth: no lip lesion, mucus membranes moist Cardiovascular: S1S2 reg, no murmur, positive posterior tibial pulse bilateral, Lungs: Mild wheezing left base, no accessory muscle use Abdominal: soft, nontender to palpation, no guarding, no appreciable organomegaly Ext: no gross muscle atrophy, no edema, no contractures Neuro: CN II-XI grossly intact, no focal neuro deficits Psych: Alert, oriented, appropriate affect - Labs CBC & Chem 7: 10/23/19 06:11 10/23/19 06:11 Labs: Abnormal Lab Results - Last 24 Hours (Table) 10/22/19 10/22/19 10/23/19 Range/Units 04:06 21:25 06:11 WBC 2.7 L (3.8-10.6) k/uL RBC 3.30 L (3.80-5.40) m/uL Hgb 9.9 L D (11.4-16.0) gm/dL Hct 30.1 L (34.0-46.0) % Lymphocytes # 0.4 L (1.0-4.8) k/uL Sodium (137-145) mmol/L Carbon Dioxide (22-30) mmol/L BUN (7-17) mg/dL Creatinine (0.52-1.04) mg/dL Glucose (74-99) mg/dL POC Glucose (mg/dL) 173 H (75-99) mg/dL Procalcitonin 13.05 H (0.02-0.09) ng/mL 10/23/19 10/23/19 10/23/19 Range/Units 06:11 06:16 11:44 WBC (3.8-10.6) k/uL RBC (3.80-5.40) m/uL Hgb (11.4-16.0) gm/dL Hct (34.0-46.0) % Lymphocytes # (1.0-4.8) k/uL Sodium 133 L (137-145) mmol/L Carbon Dioxide 17 L (22-30) mmol/L BUN 51 H (7-17) mg/dL Creatinine 1.53 H (0.52-1.04) mg/dL Glucose 171 H (74-99) mg/dL POC Glucose (mg/dL) 176 H 146 H (75-99) mg/dL Procalcitonin (0.02-0.09) ng/mL 10/23/19 Range/Units 16:35 WBC (3.8-10.6) k/uL RBC (3.80-5.40) m/uL Hgb (11.4-16.0) gm/dL Hct (34.0-46.0) % Lymphocytes # (1.0-4.8) k/uL Sodium (137-145) mmol/L Carbon Dioxide (22-30) mmol/L BUN (7-17) mg/dL Creatinine (0.52-1.04) mg/dL Glucose (74-99) mg/dL POC Glucose (mg/dL) 249 H (75-99) mg/dL Procalcitonin (0.02-0.09) ng/mL Microbiology - Last 24 Hours (Table) 10/21/19 12:08 Blood Culture - Preliminary Blood No Growth after 48 hours 10/21/19 00:33 Blood Culture - Preliminary Blood No Growth after 48 hours Assessment and Plan Assessment: Acute exacerbation of COPD with pneumonia with sepsis -Repeat chest x-ray in a.m. follow until clear -Continue with Rocephin and Zithromax -Continue with steroids, DuoNeb, budesonide, and formoterol. -Pulmonary hygiene -Await sputum cultures -Blood cultures negative to date Anemia - recentl started on blood thinners - follow CBC - check Fe studies - if continued to drop then stop eliquis and consult G_ New-onset atrial fibrillation with rapid ventricular response -Now in normal sinus rhythm -Continue Eliquis on Lopressor -cardiology recommendations appreciated MYAH likely secondary to dehydration and increased work of breathing as well as hypoperfusion secondary to atrial fibrillation for rapid ventricular response. -Hold hydrochlorothiazide, losartan -Repeat basic metabolic profile in a.m. 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% associated with left ventricular hypokinesis -Continue with beta jorge, ACEI on hold secondary to MYAH plan to restart prior to discharge -Cardiology recommendations Hypothyroidism -Continue with Synthroid Elevated troponin, Lab abnormality - due to A fib with RVR - cardio recs Acute hypoxic respiratory failure, resolved DVT prophylaxis: Katie Discussed with: Patient, nursing, cardio Anticipated discharge: 2-[address]: home with home health A total of 35 minutes was spent on the care of this complex patient more than 50% of the time was spent in counseling and care coordination.
--- NOTE | 2019-10-23 20:08 | PN ---
PROGRESS NOTE DATE OF SERVICE: 10/23/2019 REASON FOR FOLLOWUP: Pneumonia. INTERVAL HISTORY: The patient is currently afebrile. The patient is breathing more comfortably. The patient's cough has decreased in intensity; remains dry in nature. No chest pain. No nausea, vomiting. No abdominal pain or diarrhea. PHYSICAL EXAMINATION: Blood pressure 127/58 with a pulse of 68, temperature of 98.2. She is 93% on 4 L nasal cannula. General description is an elderly female lying in bed in no distress. RESPIRATORY SYSTEM: Unlabored breathing. Coarse breath sounds bilaterally. No wheeze. HEART: S1, S2. Regular rate and rhythm. ABDOMEN: Soft. No tenderness. EXTREMITIES: No edema of the feet. LABS: Hemoglobin 9.9, white count 2.7. Creatinine is 1.53. Blood culture has been negative. She was unable to provide any sputum. DIAGNOSTIC IMPRESSION AND PLAN: Patient admitted to hospital with difficulty breathing. Did have a cough, fever and concern for right lower lobe pneumonia, community-acquired. The patient is currently covered with Rocephin and Zithromax; to continue. Try to obtain a sputum sample and continue with supportive care. MMODL / IJN: [id number] /
[2019-10-23 20:44] LABS: Glucose,Whole Blood 125 mg/dL (75-99)
[2019-10-23] MEDS: GABAPENTIN 100 MG CAP PO SCH (20:56)
[2019-10-24 06:21] LABS: Glucose,Whole Blood 165 mg/dL (75-99)
[2019-10-24] MEDS: LEVOTHYROXINE 25 MCG TAB PO SCH (06:57)
[2019-10-24] MEDS: INSULIN ASPART (NovoLOG) 100 UNIT/ML VIAL SQ SCH ×4 (06:57→20:52)
[2019-10-24 07:12] LABS: HCT 30.7 % (34.0-46.0); HGB 10.3 gm/dL (11.4-16.0); MCH 30.3 pg (25.0-35.0); MCHC 33.5 g/dL (31.0-37.0); MCV 90.4 fL (80.0-100.0); Mean Platelet Volume 8.3; Platelet Count 203 k/uL (150-450); RDW 13.8 % (11.5-15.5); WBC 6.7 k/uL (3.8-10.6)
[2019-10-24 07:13] LABS: Calcium 8.5 mg/dL (8.4-10.2); Potassium 4.1 mmol/L (3.5-5.1)
--- NOTE | 2019-10-24 07:21 | XR ---
EXAMINATION TYPE: XR chest 1V portable DATE OF EXAM: 10/24/2019 CLINICAL HISTORY: Difficulty breathing and pneumonia progress study. TECHNIQUE: Single AP portable upright view of the chest is obtained. COMPARISON: Chest x-ray from 2 days earlier and older studies. FINDINGS: There is chronic parenchymal change without new suspicious focal airspace opacity, pleural effusion, or pneumothorax seen bilaterally. Persistent left basilar opacity. There is persistent car diomegaly with atherosclerotic thoracic aorta. Overlying EKG leads. Osseous structures are intact. IMPRESSION: Overall stable findings, chronic parenchymal changes and cardiomegaly with patchy left basilar acute infiltrate and/or atelectasis all redemonstrated.
[2019-10-24] MEDS: IPRATROPIUM-ALBUTEROL 3 ML NEB INHALATION SCH ×4 (08:59→20:42)
[2019-10-24] MEDS: BUDESONIDE 1 MG/2 ML NEBU INHALATION SCH ×2 (08:59→20:41)
[2019-10-24] MEDS: FORMOTEROL FUMARATE 20 MCG/2 ML NEBU INHALATION SCH ×2 (08:59→20:41)
[2019-10-24 09:19] LABS: Band Neutrophils % 11 %; Lymphocytes # (M) 0.34 k/uL (1.0-4.8); Metamyelocytes # (M) 0.34 k/uL (0); Metamyelocytes % 5 %; Monocytes # (M) 0.67 k/uL (0-1.0); Myelocytes # (M) 0.27 k/uL (0); Myelocytes % 4 %; Neutrophils % (M) 66 %; Nucleated Red Blood Cells 0 /100 WBC (0-0); Total Cells Counted 200
[2019-10-24] MEDS: guaiFENesin 600 MG TABLET.ER PO SCH ×2 (10:16→20:51)
[2019-10-24] MEDS: AZITHROMYCIN 500 MG in SODIUM CHLORIDE 0.9% 250 ML IVPB SCH (10:16)
[2019-10-24] MEDS: APIXABAN 2.5 MG TABLET PO SCH (10:16)
[2019-10-24] MEDS: METOPROLOL TARTRATE 25 MG TAB PO SCH ×3 (10:16→20:51)
[2019-10-24] MEDS: predniSONE 20 MG TAB PO SCH (10:24)
[2019-10-24] MEDS: methylPREDNISolone SOD SUCCI 40 MG/ML 1 ML VIAL IV SCH (11:15)
[2019-10-24 11:34] LABS: Glucose,Whole Blood 148 mg/dL (75-99)
--- NOTE | 2019-10-24 13:04 | P.PN ---
Subjective Progress Note Date: 10/24/19 This is a pleasant 84-year-old female patient who follows with Dr. Goncalves as her primary care physician. She has a history of hypertension and hypothyroidism. She is a former smoker of 50 years. Quit in 1999. She also has a history of chronic obstructive pulmonary disease she presented to the emergency room with symptoms of shortness of breath, she currently receiving treatment for acute exacerbation of COPD. Cardiology consultation was initially requested because of atrial fibrillation with a rapid ventricular response. Patient continues to be in atrial fibrillation today, she is on Eliquis for anticoagulation her heart rate is in the 80s to 90s, blood pressure 134/70. Ejection fraction 45-50%.mid anterior apical anterior and apical septal wall motion hypokinesia is noted.patient has a nonspecific intraventricular block, mild wall motion abnormality on echo. Overall the patient is stable today. She is on Eliquis for anticoagulation. 10/24/2019 Patient was seen and examined today, overall doing well.blood pressure 118/70 with a heart rate in the 80s, 96% on 4 L of oxygen.White blood cell count 6.7, hemoglobin 10.3, hemoglobin 203.sodium 136, potassium 4.1, BUN 59, creatinine 1 .3 Objective - Vital Signs Vital signs: Vital Signs Temp 98 F 10/24/19 04:00 Pulse 88 10/24/19 12:47 Resp 18 10/24/19 08:00 BP 118/75 10/24/19 08:00 Pulse Ox 96 10/24/19 08:00 Intake & Output 10/23/19 10/24/19 10/24/19 18:59 06:59 18:59 Intake Total 480 Balance 480 Weight 64.3 kg Intake: Oral 480 Other: Voiding Method Toilet Toilet # Voids 1 2 # Bowel Movements 0 - Exam GENERAL EXAM: Alert, pleasant 84-year-old female patient, on 2 L nasal cannula, active, comfortable in no apparent distress. HEAD: Normocephalic. EYES: Normal reaction of pupils, equal size. NOSE: Clear with pink turbinates. THROAT: No erythema or exudates. NECK: No masses, no JVD. CHEST: No chest wall deformity. LUNGS: Equal air entry with bilateral end expiratory wheeze, diminished. CVS: S1 and S2 regularly irregular with no audible murmur, regular rhythm. ABDOMEN: No hepatosplenomegaly, normal bowel sounds, no guarding or rigidity. SPINE: No scoliosis or deformity SKIN: No rashes CENTRAL NERVOUS SYSTEM: No focal deficits, tone is normal in all 4 extremities. EXTREMITIES: There is no peripheral edema. No clubbing, no cyanosis. Periphera l pulses are intact. - Labs CBC & Chem 7: 10/24/19 06:29 10/24/19 06:29 Labs: Abnormal Lab Results - Last 24 Hours (Table) 10/23/19 10/23/19 10/24/19 Range/Units 16:35 20:40 06:16 RBC (3.80-5.40) m/uL Hgb (11.4-16.0) gm/dL Hct (34.0-46.0) % Lymphocytes # (Manual) (1.0-4.8) k/uL Metamyelocytes # (Man) (0) k/uL Myelocytes # (Manual) (0) k/uL Sodium (137-145) mmol/L Carbon Dioxide (22-30) mmol/L BUN (7-17) mg/dL Creatinine (0.52-1.04) mg/dL Glucose (74-99) mg/dL POC Glucose (mg/dL) 249 H 125 H 165 H (75-99) mg/dL 10/24/19 10/24/19 10/24/19 Range/Units 06:29 06:29 11:32 RBC 3.40 L (3.80-5.40) m/uL Hgb 10.3 L (11.4-16.0) gm/dL Hct 30.7 L (34.0-46.0) % Lymphocytes # (Manual) 0.34 L (1.0-4.8) k/uL Metamyelocytes # (Man) 0.34 H (0) k/uL Myelocytes # (Manual) 0.27 H (0) k/uL Sodium 136 L (137-145) mmol/L Carbon Dioxide 18 L (22-30) mmol/L BUN 59 H (7-17) mg/dL Creatinine 1.36 H (0.52-1.04) mg/dL Glucose 169 H (74-99) mg/dL POC Glucose (mg/dL) 148 H (75-99) mg/dL Microbiology - Last 24 Hours (Table) 10/24/19 06:30 Urine Culture - Preliminary Urine,Clean Catch 10/21/19 00:33 Blood Culture - Preliminary Blood No Growth after 72 hours 10/21/19 12:08 Blood Culture - Preliminary Blood No Growth after 48 hours Assessment and Plan Plan: Assessment: 1 Acute exacerbation of chronic obstructive pulmonary disease 2 Acute hypoxemic respiratory failure secondary to above 3 50 year pack per day smoking history however quit several years ago 4 Hypertension. 5 Hypothyroidism 6 paroxysmal atrial fibrillation Plan We will continue patient on her current medications. Continue anticoagulation in the form of Eliquis. DNP note has been reviewed, I agree with a documented findings and plan of care. Patient was seen and examined.
--- NOTE | 2019-10-24 13:54 | P.PN ---
Subjective Progress Note Date: 10/24/19 Principal diagnosis: Acute exacerbation of chronic obstructive pulmonary disease This is a pleasant 84-year-old female patient who follows with Dr. Goncalves as her primary care physician. She has a history of hypertension and hypothyroidism. She is a former smoker of 50 years. Quit in 1999. She also has a history of chronic obstructive pulmonary disease with FEV1 value 81% of predicted and follows with Dr. Bateman in our office for the same. She is maintained on Pulmicort and Perforomist inhalations along with albuterol. She presented here to the emergency room shortly after midnight by EMS with worsening shortness of breath for several days prior to her arrival. She was sitting up in a tripod position her saturations were in the low 80s. She received updraft treatments in route and placed on a nonrebreather mask and her symptoms improved. She received 2 L of fluid resuscitation, 40 mg of IV Lasix 1. She was admitted for an acute exacerbation of her COPD. She is seen today on the selective care unit. She is currently awake and alert sitting up in bed. Still somewhat bronchospastic and wheezy. Still some dyspnea on minimal exertion. Tachycardic. Maintaining O2 saturations in the mid 90s on 2 L/m per nasal cannula. White count 2.8. Hemoglobin 11.7. Creatinine 1.00. Bicarb 19. Influenza screen negative. Urine culture pending. Echocardiogram pending. Chest x-ray shows no acute pulmonary process. The patient is seen today 10/24/2019 in follow-up on the selective care unit. She is sitting up at the bedside. Awake and alert in no acute distress. Breathing easier today as compared to yesterday. Echocardiogram did reveal mildly impaired left ventricular systolic function with ejection fraction 45- 50%. Chest x-ray today reveals stable findings. Chronic parenchymal changes and cardiomegaly with patchy left basilar infiltrate/atelectasis. Blood culture reveals no growth. Urine culture pending. White count 6.7. Hemoglobin 10.3. Creatinine 1.36. She is continued on bronchodilators, prednisone, antibiotics in the form of ceftriaxone and azithromycin. Anticoagulated with Eliquis. Objective - Vital Signs Vital signs: Vital Signs Temp 98 F 10/24/19 04:00 Pulse 88 10/24/19 12:47 Resp 18 10/24/19 08:00 BP 118/75 10/24/19 08:00 Pulse Ox 96 10/24/19 08:00 Intake & Output 10/23/19 10/24/19 10/24/19 18:59 06:59 18:59 Intake Total 480 Balance 480 Weight 64.3 kg Intake: Oral 480 Other: Voiding Method Toilet Toilet # Voids 1 2 4 # Bowel Movements 0 - Exam GENERAL EXAM: Alert, pleasant 84-year-old female patient, on 3 L nasal cannula, active, comfortable in no apparent distress. HEAD: Normocephalic. EYES: Normal reaction of pupils, equal size. NOSE: Clear with pink turbinates. THROAT: No erythema or exudates. NECK: No masses, no JVD. CHEST: No chest wall deformity. LUNGS: Equal air entry with bilateral end expiratory wheeze, diminished. CVS: S1 and S2 normal with no audible murmur, regular rhythm. ABDOMEN: No hepatosplenomegaly, normal bowel sounds, no guarding or rigidity. SPINE: No scoliosis or deformity SKIN: No rashes CENTRAL NERVOUS SYSTEM: No focal deficits, tone is normal in all 4 extremities. EXTREMITIES: There is no peripheral edema. No clubbing, no cyanosis. Peripheral pulses are intact. - Labs CBC & Chem 7: 10/24/19 06:29 10/24/19 06:29 Labs: Abnormal Lab Results - Last 24 Hours (Table) 10/23/19 10/23/19 10/24/19 Range/Units 16:35 20:40 06:16 RBC (3.80-5.40) m/uL Hgb (11.4-16.0) gm/dL Hct (34.0-46.0) % Lymphocytes # (Manual) (1.0-4.8) k/uL Metamyelocytes # (Man) (0) k/uL Myelocytes # (Manual) (0) k/uL Sodium (137-145) mmol/L Carbon Dioxide (22-30) mmol/L BUN (7-17) mg/dL Creatinine (0.52-1.04) mg/dL Glucose (74-99) mg/dL POC Glucose (mg/dL) 249 H 125 H 165 H (75-99) mg/dL 10/24/19 10/24/19 10/24/19 Range/Units 06:29 06:29 11:32 RBC 3.40 L (3.80-5.40) m/uL Hgb 10.3 L (11.4-16.0) gm/dL Hct 30.7 L (34.0-46.0) % Lymphocytes # (Manual) 0.34 L (1.0-4.8) k/uL Metamyelocytes # (Man) 0.34 H (0) k/uL Myelocytes # (Manual) 0.27 H (0) k/uL Sodium 136 L (137-145) mmol/L Carbon Dioxide 18 L (22-30) mmol/L BUN 59 H (7-17) mg/dL Creatinine 1.36 H (0.52-1.04) mg/dL Glucose 169 H (74-99) mg/dL POC Glucose (mg/dL) 148 H (75-99) mg/dL Microbiology - Last 24 Hours (Table) 10/24/19 06:30 Urine Culture - Preliminary Urine,Clean Catch 10/21/19 00:33 Blood Culture - Preliminary Blood No Growth after 72 hours 10/21/19 12:08 Blood Culture - Preliminary Blood No Growth after 48 hours Assessment and Plan Assessment: 1 Acute exacerbation of chronic obstructive pulmonary disease with possible left lower lobe pneumonia/atelectasis 2 Acute hypoxemic respiratory failure secondary to above 3 50 year pack per day smoking history however quit several years ago 4 Hypertension. 5 Hypothyroidism 6 Mildly impaired left ventricular systolic function with ejection fraction 45- 50%. Plan The patient was seen and evaluated by Dr. Garcia. Chest x-ray and labs reviewed Continue the current treatment plan Antibiotics in the form of ceftriaxone and azithromycin. Probable discharge in the a.m. We'll continue to follow make further recommendations based on her clinical status I, the cosigning physician, performed a history & physical examination of the patient. Lungs sounds with bilateral end expiratory wheeze, diminished. Maintaining good O2 saturations in the 90s on 3 L/m per nasal cannula. I discussed the assessment and plan of care with my nurse practitioner, Yolis Barksdale. I attest to the above note as dictated by her.
[2019-10-24 16:30] LABS: Glucose,Whole Blood 296 mg/dL (75-99)
[2019-10-24 17:02] LABS: % Iron Saturation 19.82 (12.00-45.00)
[2019-10-24 17:11] LABS: Ferritin 219.7 ng/mL (10.0-291.0)
--- NOTE | 2019-10-24 18:53 | P.PN ---
Subjective Progress Note Date: 10/24/19 (delayed charting seen at 1120) Principal diagnosis: shortness of breath Patient is an 84 yo CF with a hx of HTN, COPD, Hypothyrodism, and prior tobacco abuse who presented to the emergency department with complaints of cough and shortness of breath. In the emergency department she underwent and extensive evaluation. She was tachycardiac on arrival and EKG showed sinus tach,she was also tachypnic with pursed lip breathing. Initial lab work showed neutropenia with a WBC of 2.8, sodium 135, BUN 21, creatinine 1, alkaline phosphatase 135. Urinalysis was negative. Influenza was negative. Chest x-ray showed no active cardiopulmonary disease. Her BNP was within normal for age. She was diagnosed with COPD exacerbation and acute bronchitis. She was started on antibiotics, steroids, and bronchodilators. She was admitted to the selective care unit. Initially she had been on BiPAP therapy however that was able to be removed. She was noted to have a murmur and an echocardiogram was ordered. She developed atrial fibrillation with rapid ventricular response and was placed on a Cardizem and heparin drip. Echocardiogram came back with ejection fraction 45-50% and global hypokinesis of the left ventricle. She seen by pulmonary who agreed with current management. On the morning of 10/22 she converted to normal sinus rhythm and her Cardizem drip was discontinued and she was converted to Eliquis. Cardio felt that her EF might be falsely low due to A fib. Repeat chest x-ray showed possible developing infiltrate in the left base. Rocephin was added to zithromax. Procalcitonin was elevated consistent with pneumonia. She has made progress and wheezing is getting better. Patient seen and examined at bedside. Feeling tired and emotional today. Cough is improving. Still winded. No chest pain. No diarrhea. Wants to go home without home health. She will ambulate in halls today and see if she is strong enough for discharge. Objective - Vital Signs Vital signs: Vital Signs Temp 98.1 F 10/24/19 16:00 Pulse 82 10/24/19 16:24 Resp 19 10/24/19 16:00 BP 128/73 10/24/19 16:00 Pulse Ox 96 10/24/19 12:00 Intake & Output 10/23/19 10/24/19 10/24/19 18:59 06:59 18:59 Intake Total 480 240 Balance 480 240 Weight 64.3 kg Intake: Oral 480 240 Other: Voiding Method Toilet Toilet # Voids 1 2 3 # Bowel Movements 0 1 - Exam General: Nontoxic, no distress, appears younger than stated age Derm: warm, dry Head: atraumatic, normocephalic, symmetric Eyes: EOMI, no lid lag, anicteric sclera Mouth: no lip lesion, mucus membranes moist Cardiovascular: S1S2 reg, no murmur, positive posterior tibial pulse bilateral, Lungs: decreased bs bilateral, no accessory muscle use Abdominal: soft, nontender to palpation, no guarding, no appreciable organomegaly Ext: no gross muscle atrophy, no edema, no contractures Neuro: CN II-XI grossly intact, no focal neuro deficits Psych: Alert, oriented, appropriate affect - Labs CBC & Chem 7: 10/24/19 06:29 10/24/19 06:29 Labs: Abnormal Lab Results - Last 24 Hours (Table) 10/23/19 10/24/19 10/24/19 Range/Units 20:40 06:16 06:29 RBC 3.40 L (3.80-5.40) m/uL Hgb 10.3 L (11.4-16.0) gm/dL Hct 30.7 L (34.0-46.0) % Lymphocytes # (Manual) 0.34 L (1.0-4.8) k/uL Metamyelocytes # (Man) 0.34 H (0) k/uL Myelocytes # (Manual) 0.27 H (0) k/uL Sodium (137-145) mmol/L Carbon Dioxide (22-30) mmol/L BUN (7-17) mg/dL Creatinine (0.52-1.04) mg/dL Glucose (74-99) mg/dL POC Glucose (mg/dL) 125 H 165 H (75-99) mg/dL Iron (50-170) ug/dL TIBC (228-460) ug/dL 10/24/19 10/24/19 10/24/19 Range/Units 06:29 11:32 16:28 RBC (3.80-5.40) m/uL Hgb (11.4-16.0) gm/dL Hct (34.0-46.0) % Lymphocytes # (Manual) (1.0-4.8) k/uL Metamyelocytes # (Man) (0) k/uL Myelocytes # (Manual) (0) k/uL Sodium 136 L (137-145) mmol/L Carbon Dioxide 18 L (22-30) mmol/L BUN 59 H (7-17) mg/dL Creatinine 1.36 H (0.52-1.04) mg/dL Glucose 169 H (74-99) mg/dL POC Glucose (mg/dL) 148 H 296 H (75-99) mg/dL Iron 45 L (50-170) ug/dL TIBC 227 L (228-460) ug/dL Microbiology - Last 24 Hours (Table) 10/21/19 12:08 Blood Culture - Preliminary Blood No Growth after 72 hours 10/24/19 06:30 Urine Culture - Preliminary Urine,Clean Catch 10/21/19 00:33 Blood Culture - Preliminary Blood No Growth after 72 hours Assessment and Plan Assessment: Acute exacerbation of COPD with pneumonia with sepsis -follow CXR until clear -Continue with Rocephin and Zithromax -Continue with steroids (transitioned to oral), DuoNeb, budesonide, and formoterol. -Pulmonary hygiene -unable to obtain sputum culture -Blood cultures negative to date Anemia, acute normocytic - HgB improving - recently started on blood thinners - follow CBC - ferritin normal ? dilutional New-onset atrial fibrillation with rapid ventricular response -Now in normal sinus rhythm -Continue Eliquis on Lopressor -cardiology recommendations appreciated follow-up in office MYAH likely secondary to dehydration and increased work of breathing as well as hypoperfusion secondary to atrial fibrillation for rapid ventricular response. -Hold hydrochlorothiazide, losartan -Repeat basic metabolic profile in a.m. -If creatinine improving consider restarting home medications. 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 DVT prophylaxis: Eliquis Discussed with: Patient, nursing, cardio Anticipated discharge: 1-[address]: home A total of 25 minutes was spent on the care of this complex patient more than 50% of the time was spent in counseling and care coordination.
[2019-10-24 18:54] LABS: Glucose,Whole Blood 314 mg/dL (75-99)
[2019-10-24 20:29] LABS: Glucose,Whole Blood 238 mg/dL (75-99)
[2019-10-24] MEDS: GABAPENTIN 100 MG CAP PO SCH (20:51)
--- NOTE | 2019-10-24 22:45 | PN ---
PROGRESS NOTE DATE OF SERVICE: 10/24/2019 REASON FOR FOLLOWUP: Pneumonia. INTERVAL HISTORY: The patient is currently afebrile. The patient is breathing more comfortably. The patient's cough is getting loose. She is able to bring up some sputum. Mentioned providing a sputum sample. No nausea, no vomiting, no abdominal pain or diarrhea. PHYSICAL EXAMINATION: Blood pressure 128/73 with a pulse of 73, temperature 98.1. She is 98% on 2 L nasal cannula. General description is an elderly female up in the bed in no distress. RESPIRATORY SYSTEM: Unlabored breathing. Coarse breath sounds bilaterally. No wheeze. HEART: S1, S2. Regular rate and rhythm. ABDOMEN: Soft. No tenderness. EXTREMITIES: No edema of the feet. LABS: Blood culture has been negative so far. DIAGNOSTIC IMPRESSION AND PLAN: Patient admitted to hospital with difficulty in breathing, multifactorial, and did have a component of pneumonia, likely community-acquired. The patient is currently covered with Rocephin and Zithromax; to continue, and try to obtain a sputum sample to narrow down antibiotics. Continue with supportive care. MMODL / IJN: [id number] /
[2019-10-25 06:08] LABS: Glucose,Whole Blood 126 mg/dL (75-99)
[2019-10-25 06:16] LABS: HCT 32.4 % (34.0-46.0); HGB 10.3 gm/dL (11.4-16.0); MCH 29.3 pg (25.0-35.0); MCHC 31.8 g/dL (31.0-37.0); Mean Platelet Volume 7.8; Platelet Count 221 k/uL (150-450); RBC 3.52 m/uL (3.80-5.40); RDW 13.9 % (11.5-15.5); WBC 15.3 k/uL (3.8-10.6)
[2019-10-25 06:23] LABS: Calcium 8.3 mg/dL (8.4-10.2); Potassium 4.1 mmol/L (3.5-5.1)
[2019-10-25] MEDS: INSULIN ASPART (NovoLOG) 100 UNIT/ML VIAL SQ SCH ×3 (06:25→17:12)
[2019-10-25] MEDS: LEVOTHYROXINE 25 MCG TAB PO SCH (06:51)
[2019-10-25] MEDS: FORMOTEROL FUMARATE 20 MCG/2 ML NEBU INHALATION SCH (09:00)
[2019-10-25] MEDS: IPRATROPIUM-ALBUTEROL 3 ML NEB INHALATION SCH ×3 (09:00→16:32)
[2019-10-25] MEDS ORDERED: AZITHROMYCIN 500 MG TAB PO SCH (09:00)
[2019-10-25] MEDS: BUDESONIDE 1 MG/2 ML NEBU INHALATION SCH (09:00)
[2019-10-25] MEDS: predniSONE 20 MG TAB PO SCH (09:33)
[2019-10-25] MEDS: METOPROLOL TARTRATE 25 MG TAB PO SCH ×2 (09:33→16:05)
[2019-10-25] MEDS: guaiFENesin 600 MG TABLET.ER PO SCH (09:33)
[2019-10-25] MEDS: APIXABAN 2.5 MG TABLET PO SCH (09:33)
[2019-10-25 10:13] VITALS: RESP 18
--- NOTE | 2019-10-25 13:56 | P.PN ---
Subjective Chart was reviewed and patient was seen and examined. Patient was admitted with shortness of breath, COPD exacerbation pneumonia. This morning she is reporting feeling much better. She has been ambulating in the room without any difficulties. She has been on the room air. She denies any chest pain cough expectoration. She reports good appetite no diarrhea nausea or vomiting. Patient is very motivated and interested to be discharged home today if possible. Objective - Vital Signs Vital signs: Vital Signs Temp 99 F 10/25/19 12:15 Pulse 60 10/25/19 12:15 Resp 18 10/25/19 12:15 BP 147/66 10/25/19 12:15 Pulse Ox 93 L 10/25/19 12:15 Intake & Output 10/24/19 10/25/19 10/25/19 18:59 06:59 18:59 Intake Total 240 230 Balance 240 230 Weight 64.4 kg Intake: Oral 240 230 Other: Voiding Method Toilet Toilet # Voids 3 1 # Bowel Movements 1 - Exam Vital Signs: I have reviewed the vital signs. GENERAL: Well-nourished, Well-developed , no apparent distress, cooperative Eyes: PERRL, extraoculry movements intact, clear conjunctiva Head: : Atraumatic external nose and ears, oropharyngeal mucosa is moist without lesions or exudates Neck: Symmetric, trachea midline, No thyromegaly, no masses or neck vain pulsation, no neck rigidity CVS: +S1/S2, No murmurs or gallops. Peripheral pulses 2+ and equal in all extremities. RESP: Unlabored respiratory effort. Breath sounds are diminished but present and there is no any wheezing rhonchi or crackles Abdomen: Bowel sounds present in all 4 quadrants, Soft to palpation, Nontender/Nondistended, No hepatosplenomegaly, no hernias or masses, no CVA tnderness Musculoskeletal: Extremities w/o deformity, No cyanosis or clubbing, no joint swelling Skin: Warm, Dry. No rashes or lesions Psych: Awake, Alert, & Oriented (AAO) x3 Appropriate mood and affect - Labs CBC & Chem 7: 10/25/19 05:43 10/25/19 05:43 Labs: Abnormal Lab Results - Last 24 Hours (Table) 10/24/19 10/24/19 10/24/19 Range/Units 06:29 16:28 18:53 WBC (3.8-10.6) k/uL RBC (3.80-5.40) m/uL Hgb (11.4-16.0) gm/dL Hct (34.0-46.0) % Chloride (98-107) mmol/L Carbon Dioxide (22-30) mmol/L BUN (7-17) mg/dL Creatinine (0.52-1.04) mg/dL Glucose (74-99) mg/dL POC Glucose (mg/dL) 296 H 314 H (75-99) mg/dL Calcium (8.4-10.2) mg/dL Iron 45 L (50-170) ug/dL TIBC 227 L (228-460) ug/dL 10/24/19 10/25/19 10/25/19 Range/Units 20:26 05:43 05:43 WBC 15.3 H (3.8-10.6) k/uL RBC 3.52 L (3.80-5.40) m/uL Hgb 10.3 L (11.4-16.0) gm/dL Hct 32.4 L (34.0-46.0) % Chloride 111 H (98-107) mmol/L Carbon Dioxide 20 L (22-30) mmol/L BUN 51 H (7-17) mg/dL Creatinine 1.15 H (0.52-1.04) mg/dL Glucose 124 H (74-99) mg/dL POC Glucose (mg/dL) 238 H (75-99) mg/dL Calcium 8.3 L (8.4-10.2) mg/dL Iron (50-170) ug/dL TIBC (228-460) ug/dL 10/25/19 Range/Units 06:06 WBC (3.8-10.6) k/uL RBC (3.80-5.40) m/uL Hgb (11.4-16.0) gm/dL Hct (34.0-46.0) % Chloride (98-107) mmol/L Carbon Dioxide (22-30) mmol/L BUN (7-17) mg/dL Creatinine (0.52-1.04) mg/dL Glucose (74-99) mg/dL POC Glucose (mg/dL) 126 H (75-99) mg/dL Calcium (8.4-10.2) mg/dL Iron (50-170) ug/dL TIBC (228-460) ug/dL Microbiology - Last 24 Hours (Table) 10/24/19 06:30 Urine Culture - Final Urine,Clean Catch 10/21/19 00:33 Blood Culture - Preliminary Blood No Growth after 96 hours 10/21/19 12:08 Blood Culture - Preliminary Blood No Growth after 72 hours Assessment and Plan Assessment: 1. Acute exacerbation of COPD with pneumonia with sepsis Clinically improving Currently on ceftriaxone/Zithromax, infectious disease following, consider changing to oral antibiotic Patient is followed by pulmonary services well 2. Anemia, acute normocytic - HgB improving - recently started on blood thinners - follow CBC - ferritin normal ? dilutional 3. New-onset atrial fibrillation with rapid ventricular response -Now in normal sinus rhythm -Continue Eliquis and Lopressor -cardiology recommendations appreciated follow-up in office 4. MYAH likely secondary to dehydration and increased work of breathing as well as hypoperfusion secondary to atrial fibrillation for rapid ventricular response. I feel there could be an underlying chronic renal insufficiency next that she has diabetes and there is some protein in the urine -Hold hydrochlorothiazide, losartan Kidney function has been improving, reports good urine output, no significant electrolyte abnormalities Recommend following up in the office further. 5. 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 Hypothyroidism -Continue with Synthroid 7. Elevated troponin, Lab abnormality - due to A fib with RVR - cardio recs 8. Acute hypoxic respiratory failure, resolved We'll plan to discharge once cleared by pulmonology and infectious disease service.
--- NOTE | 2019-10-25 14:04 | P.PN ---
Subjective This is Amena Taylor PA-C dictating a progress note on this patient The patient was interviewed and examined by me as well as by Dr. Jiménez Case discussed with Dr. Jiménez and he agrees with the plan of care IMPRESSION / ASSESSMENT: Shortness of breath secondary to acute COPD exacerbation, breathing improving Paroxysmal atrial fibrillation, rate controlled, anticoagulated with eliquis Hypertension Hypothyroidism Former smoker PLAN: From a cardiac standpoint the patient is stable, continue current cardiac medication regimen, may go home within the next 24-48 hours HPI/interval history Patient is an 84-year-old female with a history of hypertension, hypothyroidism, COPD who presented with complaints of shortness of breath. Cardiology was consulted for management of atrial fibrillation with RVR. Her rates are well controlled on metoprolol 25 mg 3 times a day. Patient seen and examined resting in bed. States she feels better. Breathing has improved. No palpitations, chest discomfort, dizziness or syncope EXAMINATION Patient is afebrile, pulse in the 60s, respirations 18, blood pressure 147/66, oxygen saturation 93% on room air Patient seen and examined resting comfortably in bed, in no acute distress Lungs are clear to auscultation bilaterally Heart is irregular, no audible murmurs No lower extremity edema REVIEW OF LABS, ECG WBC 15.3, hemoglobin 10.3, platelets 221, potassium 4.1, BUN 51, creatinine 1.15 Objective - Vital Signs Vital signs: Vital Signs Temp 99 F 10/25/19 12:15 Pulse 60 10/25/19 12:15 Resp 18 10/25/19 12:15 BP 147/66 10/25/19 12:15 Pulse Ox 93 L 10/25/19 12:15 Intake & Output 10/24/19 10/25/19 10/25/19 18:59 06:59 18:59 Intake Total 240 230 Balance 240 230 Weight 64.4 kg Intake: Oral 240 230 Other: Voiding Method Toilet Toilet # Voids 3 1 # Bowel Movements 1 - Labs CBC & Chem 7: 10/25/19 05:43 10/25/19 05:43 Labs: Abnormal Lab Results - Last 24 Hours (Table) 10/24/19 10/24/19 10/24/19 Range/Units 06:29 16:28 18:53 WBC (3.8-10.6) k/uL RBC (3.80-5.40) m/uL Hgb (11.4-16.0) gm/dL Hct (34.0-46.0) % Chloride (98-107) mmol/L Carbon Dioxide (22-30) mmol/L BUN (7-17) mg/dL Creatinine (0.52-1.04) mg/dL Glucose (74-99) mg/dL POC Glucose (mg/dL) 296 H 314 H (75-99) mg/dL Calcium (8.4-10.2) mg/dL Iron 45 L (50-170) ug/dL TIBC 227 L (228-460) ug/dL 10/24/19 10/25/19 10/25/19 Range/Units 20:26 05:43 05:43 WBC 15.3 H (3.8-10.6) k/uL RBC 3.52 L (3.80-5.40) m/uL Hgb 10.3 L (11.4-16.0) gm/dL Hct 32.4 L (34.0-46.0) % Chloride 111 H (98-107) mmol/L Carbon Dioxide 20 L (22-30) mmol/L BUN 51 H (7-17) mg/dL Creatinine 1.15 H (0.52-1.04) mg/dL Glucose 124 H (74-99) mg/dL POC Glucose (mg/dL) 238 H (75-99) mg/dL Calcium 8.3 L (8.4-10.2) mg/dL Iron (50-170) ug/dL TIBC (228-460) ug/dL 10/25/19 Range/Units 06:06 WBC (3.8-10.6) k/uL RBC (3.80-5.40) m/uL Hgb (11.4-16.0) gm/dL Hct (34.0-46.0) % Chloride (98-107) mmol/L Carbon Dioxide (22-30) mmol/L BUN (7-17) mg/dL Creatinine (0.52-1.04) mg/dL Glucose (74-99) mg/dL POC Glucose (mg/dL) 126 H (75-99) mg/dL Calcium (8.4-10.2) mg/dL Iron (50-170) ug/dL TIBC (228-460) ug/dL Microbiology - Last 24 Hours (Table) 10/24/19 06:30 Urine Culture - Final Urine,Clean Catch 10/21/19 00:33 Blood Culture - Preliminary Blood No Growth after 96 hours 10/21/19 12:08 Blood Culture - Preliminary Blood No Growth after 72 hours
--- NOTE | 2019-10-25 15:46 | P.PN ---
Subjective Progress Note Date: 10/25/19 Principal diagnosis: Acute exacerbation of chronic obstructive pulmonary disease This is a pleasant 84-year-old female patient who follows with Dr. Goncalves as her primary care physician. She has a history of hypertension and hypothyroidism. She is a former smoker of 50 years. Quit in 1999. She also has a history of chronic obstructive pulmonary disease with FEV1 value 81% of predicted and follows with Dr. Bateman in our office for the same. She is maintained on Pulmicort and Perforomist inhalations along with albuterol. She presented here to the emergency room shortly after midnight by EMS with worsening shortness of breath for several days prior to her arrival. She was sitting up in a tripod position her saturations were in the low 80s. She received updraft treatments in route and placed on a nonrebreather mask and her symptoms improved. She received 2 L of fluid resuscitation, 40 mg of IV Lasix 1. She was admitted for an acute exacerbation of her COPD. She is seen today on the selective care unit. She is currently awake and alert sitting up in bed. Still somewhat bronchospastic and wheezy. Still some dyspnea on minimal exertion. Tachycardic. Maintaining O2 saturations in the mid 90s on 2 L/m per nasal cannula. White count 2.8. Hemoglobin 11.7. Creatinine 1.00. Bicarb 19. Influenza screen negative. Urine culture pending. Echocardiogram pending. Chest x-ray shows no acute pulmonary process. The patient is seen today 10/24/2019 in follow-up on the selective care unit. She is sitting up at the bedside. Awake and alert in no acute distress. Breathing easier today as compared to yesterday. Echocardiogram did reveal mildly impaired left ventricular systolic function with ejection fraction 45- 50%. Chest x-ray today reveals stable findings. Chronic parenchymal changes and cardiomegaly with patchy left basilar infiltrate/atelectasis. Blood culture reveals no growth. Urine culture pending. White count 6.7. Hemoglobin 10.3. Creatinine 1.36. She is continued on bronchodilators, prednisone, antibiotics in the form of ceftriaxone and azithromycin. Anticoagulated with Eliquis. The patient is seen today 10/25/2019 in follow-up on the selective care unit. Currently sitting up in a chair at the bedside. Urine culture reveals no growth. Blood culture reveals no growth. White count 15.3. Hemoglobin 10.3. Creatinine 1.15. She is continued on bronchodilators, prednisone, antibiotics in the form of ceftriaxone and azithromycin. Anticoagulated with Eliquis. She is anxious to go home. Objective - Vital Signs Vital signs: Vital Signs Temp 99 F 10/25/19 12:15 Pulse 60 10/25/19 12:15 Resp 18 10/25/19 12:15 BP 147/66 10/25/19 12:15 Pulse Ox 93 L 10/25/19 12:15 Intake & Output 10/24/19 10/25/19 10/25/19 18:59 06:59 18:59 Intake Total 240 230 Balance 240 230 Weight 64.4 kg Intake: Oral 240 230 Other: Voiding Method Toilet Toilet # Voids 3 1 # Bowel Movements 1 - Exam GENERAL EXAM: Alert, pleasant 84-year-old female patient, on room air, active, comfortable in no apparent distress. HEAD: Normocephalic. EYES: Normal reaction of pupils, equal size. NOSE: Clear with pink turbinates. THROAT: No erythema or exudates. NECK: No masses, no JVD. CHEST: No chest wall deformity. LUNGS: Equal air entry with bilateral end expiratory wheeze, diminished. CVS: S1 and S2 normal with no audible murmur, regular rhythm. ABDOMEN: No hepatosplenomegaly, normal bowel sounds, no guarding or rigidity. SPINE: No scoliosis or deformity SKIN: No rashes CENTRAL NERVOUS SYSTEM: No focal deficits, tone is normal in all 4 extremities. EXTREMITIES: There is no peripheral edema. No clubbing, no cyanosis. Peripheral pulses are intact. - Labs CBC & Chem 7: 10/25/19 05:43 10/25/19 05:43 Labs: Abnormal Lab Results - Last 24 Hours (Table) 10/24/19 10/24/19 10/24/19 Range/Units 06:29 16:28 18:53 WBC (3.8-10.6) k/uL RBC (3.80-5.40) m/uL Hgb (11.4-16.0) gm/dL Hct (34.0-46.0) % Chloride (98-107) mmol/L Carbon Dioxide (22-30) mmol/L BUN (7-17) mg/dL Creatinine (0.52-1.04) mg/dL Glucose (74-99) mg/dL POC Glucose (mg/dL) 296 H 314 H (75-99) mg/dL Calcium (8.4-10.2) mg/dL Iron 45 L (50-170) ug/dL TIBC 227 L (228-460) ug/dL 10/24/19 10/25/19 10/25/19 Range/Units 20:26 05:43 05:43 WBC 15.3 H (3.8-10.6) k/uL RBC 3.52 L (3.80-5.40) m/uL Hgb 10.3 L (11.4-16.0) gm/dL Hct 32.4 L (34.0-46.0) % Chloride 111 H (98-107) mmol/L Carbon Dioxide 20 L (22-30) mmol/L BUN 51 H (7-17) mg/dL Creatinine 1.15 H (0.52-1.04) mg/dL Glucose 124 H (74-99) mg/dL POC Glucose (mg/dL) 238 H (75-99) mg/dL Calcium 8.3 L (8.4-10.2) mg/dL Iron (50-170) ug/dL TIBC (228-460) ug/dL 10/25/19 Range/Units 06:06 WBC (3.8-10.6) k/uL RBC (3.80-5.40) m/uL Hgb (11.4-16.0) gm/dL Hct (34.0-46.0) % Chloride (98-107) mmol/L Carbon Dioxide (22-30) mmol/L BUN (7-17) mg/dL Creatinine (0.52-1.04) mg/dL Glucose (74-99) mg/dL POC Glucose (mg/dL) 126 H (75-99) mg/dL Calcium (8.4-10.2) mg/dL Iron (50-170) ug/dL TIBC (228-460) ug/dL Microbiology - Last 24 Hours (Table) 10/21/19 12:08 Blood Culture - Preliminary Blood No Growth after 96 hours 10/24/19 06:30 Urine Culture - Final Urine,Clean Catch 10/21/19 00:33 Blood Culture - Preliminary Blood No Growth after 96 hours Assessment and Plan Assessment: 1 Acute exacerbation of chronic obstructive pulmonary disease with possible left lower lobe pneumonia/atelectasis 2 Acute hypoxemic respiratory failure secondary to above 3 50 year pack per day smoking history however quit several years ago 4 Hypertension. 5 Hypothyroidism 6 Mildly impaired left ventricular systolic function with ejection fraction 45- 50%. Plan The patient was seen and evaluated by Dr. Garcia. She is cleared for discharge from the pulmonary standpoint. Complete prednisone taper. Complete course of antibiotics. Follow-up in our office in 1-2 weeks' time. I, the cosigning physician, performed a history & physical examination of the patient. Lungs sounds with faint bilateral end expiratory wheeze, diminished. Maintaining good O2 saturations in the 90s on room air. I discussed the assessment and plan of care with my nurse practitioner, Yolis Barksdale. I attest to the above note as dictated by her.
[2019-10-25 17:19] VITALS: BP 166/73; PULSE 84; TEMP 98.4
--- NOTE | 2019-10-25 17:39 | P.DS ---
Providers Date of admission: 10/21/19 02:05 Attending physician: Palma Chavis MD Consults: 10/21/19 06:28 Consult Physician Routine Consulting Provider: [facility] Consult Reason/Comments: CHF Do you want consulting provider notified?: Yes, Notify in am Consult Physician Urgent Consulting Provider: Cy Bateman Consult Reason/Comments: COPD exacerbation, established patient Do you want consulting provider notified?: Yes, Notify in am 10/21/19 11:44 Consult Physician Urgent Consulting Provider: Humphrey Zafar Consult Reason/Comments: Sepsis Risk Do you want consulting provider notified?: Yes Primary care physician: [facility] Course: Date of admission: 10/21/19 Date of discharge: 10/25/2019 Consultations: 1. Dr. Garcia pulmonary 2. Dr. Delgado cardiology Reason for admission: Shortness of breath A. fib with RVR X Discharge diagnosis: 1. Acute COPD exacerbation 2. Acute hypoxic respiratory failure 3. A. fib with RVR 4. Community-acquired pneumonia right lower lobe 5. Stress hyperglycemia History of present illness: This is a 84-year-old female history of smoking hypothyroidism COPD who was admitted with worsening shortness of breath cough expectoration PC history physical for more detail. In emergency department chest x-ray showed right lower lobe infiltrate. She was found to be in atrial fibrillation with RVR. Hospital course: Acute COPD exacerbation and acute hypoxic respiratory failure Patient was treated with supplemental oxygen, systemic steroids, bronchodilators Pulmonary service evaluated the patient With above treatment her condition improved and on the day of discharge she was feeling comfortable on room air and ambulating without any shortness of breath or desaturation of her oxygen level Pulmonary service cleared the patient for discharge and recommended prednisone taper Atrial fibrillation with RVR Patient was treated with rate controlling medication metoprolol and started on Eliquis 2.5 mg twice a day She was in relatively cardiology On the day of discharge she was clinically normal sinus rhythm Cardiology cleared patient for discharge with recommendations to continue metoprolol 3 times a day along with Eliquis in follow-up in the office On the day of discharge I discussed this with the patient's daughter Sonja and she was comfortable to continue these medications. She already had a prescription for Eliquis. Community-acquired pneumonia right lower lobe Patient was treated with ceftriaxone and Zithromax 3 days and transition to Ceftin as per recommendation from infectious disease service Infectious disease service provided prescription for antibiotics Stress hyperglycemia This improved with decreased dose of prednisone and minimal use of sliding scale of insulin Discharge: Excellent patient will discharge home. I discussed with her daughter the time of discharge panel care. She is to continue to taper prednisone instructed to pulmonary service. She is to continue with metoprolol 3 times a day and Eliquis. She is to follow with pulmonary and cardiology service and primary care physician as outlined in discharge planning. More than 35 minutes was spent on this discharge Patient Condition at Discharge: Fair Plan - Discharge Summary New Discharge Prescriptions: New Cefuroxime Axetil [Ceftin] 500 mg PO BID #10 tab Apixaban [Eliquis] 2.5 mg PO DAILY tablet Metoprolol Tartrate [Lopressor] 25 mg PO TID #90 tab predniSONE See Taper PO DIRECTED #30 tab Continue Levothyroxine Sodium 25 mcg PO DAILY Gabapentin [Neurontin] 100 - 200 mg PO HS Albuterol Nebulized [Ventolin Nebulized] 2.5 mg INHALATION RT-TID Discontinued Losartan/Hydrochlorothiazide [Losartan-Hctz 100-25 mg Tab] 0.5 tab PO QAM Discharge Medication List Gabapentin [Neurontin] 100 - 200 mg PO HS 04/19/19 [History] Levothyroxine Sodium 25 mcg PO DAILY 04/19/19 [History] Albuterol Nebulized [Ventolin Nebulized] 2.5 mg INHALATION RT-TID 10/21/19 [History] Apixaban [Eliquis] 2.5 mg PO DAILY tablet 10/25/19 [Rx] Cefuroxime Axetil [Ceftin] 500 mg PO BID #10 tab 10/25/19 [Rx] Metoprolol Tartrate [Lopressor] 25 mg PO TID #90 tab 10/25/19 [Rx] predniSONE See Taper PO DIRECTED #30 tab 10/25/19 [Rx] Follow up Appointment(s)/Referral(s): Gregory Jackson MD [STAFF PHYSICIAN] - 10/31/19 9:30 am (With Ольга ALVARADO) Omid Goncalves MD [Primary Care Provider] - 1-2 days Jagjit Garcia DO [Doctor of Osteopathic Medicine] - 1 Week Patient Instructions/Handouts: Heart Failure (DC), COPD (Chronic Obstructive Pulmonary Disease) (DC) Activity/Diet/Wound Care/Special Instructions: Cleared by cardiology. Discharge Disposition: HOME SELF-CARE
--- NOTE | 2019-10-25 22:03 | PN ---
PROGRESS NOTE DATE OF SERVICE: 10/25/2019 REASON FOR FOLLOWUP: Pneumonia. INTERVAL HISTORY: The patient is currently afebrile. Patient is breathing more comfortably. Patient denies having any chest pain. She did have some cough but not bringing up any sputum. No nausea, no vomiting. No abdominal pain, no diarrhea. PHYSICAL EXAMINATION: Blood pressure 147/66, pulse of 60, temperature 99. She is 92% on room air. General description is an elderly female, lying in bed in no distress. Respiratory system: Unlabored breathing with decreased breath sounds. No wheeze. Heart S1, S2. Regular rate and rhythm. Abdomen soft. No tenderness. LABS: Hemoglobin is 10 with white count 15.9. Creatinine is 1.15. Blood culture has been negative. Sputum has not been collected. DIAGNOSTIC IMPRESSION AND PLAN: Patient admitted to the hospital with difficulty in breathing and cough with a fever with evidence of left lower lobe pneumonia, community-acquired. The patient clinically responding to the Rocephin and Zithromax, to continue with the plan to finish therapy with oral Ceftin. Monitor clinical course closely. MMODL / IJN: [id number] /
== END 2019-10-25 18:20 | disposition home health service (06) | DRG 871 ==
LOC: EC 00:10 → 3SCARD 02:05
PROVIDERS: ADMIT Internal Medicine; ATTEND Internal Medicine
DX: A41.9 Sepsis, unspecified organism (principal); J18.9 Pneumonia, unspecified organism; J96.01 Acute respiratory failure with hypoxia; E87.3 Alkalosis; I50.22 Chronic systolic (congestive) heart failure; I42.9 Cardiomyopathy, unspecified; J44.0 Chronic obstructive pulmonary disease with (acute) lower respiratory infection; J44.1 Chronic obstructive pulmonary disease with (acute) exacerbation; J98.11 Atelectasis; N17.9 Acute kidney failure, unspecified; D64.9 Anemia, unspecified; E03.9 Hypothyroidism, unspecified; E86.0 Dehydration; I11.0 Hypertensive heart disease with heart failure; I27.20 Pulmonary hypertension, unspecified; I45.4 Nonspecific intraventricular block; I48.0 Paroxysmal atrial fibrillation; J20.9 Acute bronchitis, unspecified; Z79.01 Long term (current) use of anticoagulants; Z79.890 Hormone replacement therapy; Z87.891 Personal history of nicotine dependence; Z88.0 Allergy status to penicillin; Z96.641 Presence of right artificial hip joint; Z96.651 Presence of right artificial knee joint; Z98.49 Cataract extraction status, unspecified eye
CPT/HCPCS: 36415; 36600; 71045; 80048; 80053; 81001; 82607; 82728; 82747; 83540; 83550; 83605; 83880; 84145; 84443; 84484; 85025; 85027; 85610; 85730; 87040; 87086; 87502; 93005; 93306; 94640; 94660; 94667; 94760; 96361; 96374; 99291

== ENCOUNTER → 2020-09-03 | Outpatient (CLI) | payer MEDICARE, OTHER ==
[2020-09-03 12:14] VITALS: BP 169/71; PULSE 73; RESP 16; TEMP 98.2
== END | disposition home or self-care (01) ==
LOC: PROCWHC3 11:33
PROVIDERS: ATTEND Internal Medicine Endocrinology, Diabetes & Metabolism
DX: M81.0 Age-related osteoporosis without current pathological fracture (principal)
CPT/HCPCS: 96365; J3489

== ENCOUNTER → 2023-10-06 | Outpatient (CLI) | payer MEDICARE, OTHER ==
[2023-10-07 02:37] LABS: HCT 35.2 % (37.2-50.0); HGB 10.9 g/dL (12.0-17.0); MCH 29.7 pg (27.0-32.0); MCV 95.9 FL (80.0-97.0); Mean Platelet Volume 10.6 FL (9.5-12.2); NRBC Per 100 WBC 0 X 10*3/uL (0.00-0.01); Platelet Count 313 X 10*3/uL (140-440); RBC 3.67 X 10*6/uL (4.10-5.60); RDW 13.5 % (11.5-14.5); WBC 3.83 X 10*3/uL (4.50-10.00)
[2023-10-07 05:29] LABS: Basophils # (A) 0.06 X 10*3/uL (0.00-0.10); Basophils % (A) 1.6 %; Eosinophils # (A) 0.34 X 10*3/uL (0.04-0.35); Eosinophils % (A) 8.9 %; Immature Grans, Automated 0 %; Lymphocytes # (A) 1.68 X 10*3/uL (0.90-5.00); Lymphocytes % (A) 43.9 %; Monocytes # (A) 0.98 X 10*3/uL (0.20-1.00); Monocytes % (A) 25.6 %; Neutrophils # (A) 0.77 X 10*3/uL (1.80-7.70)
== END | disposition home or self-care (01) ==
LOC: LABWHC1 15:37
PROVIDERS: ATTEND Internal Medicine Critical Care Medicine
DX: R61 Generalized hyperhidrosis (principal)
CPT/HCPCS: 36415; 85025

== ENCOUNTER 2024-03-23 09:59 | Inpatient (IN) | payer MEDICARE, OTHER ==
--- NOTE | 2024-03-23 10:13 | ED ---
SOB HPI - General Chief Complaint: Shortness of Breath Stated Complaint: COPD Time Seen by Provider: 03/23/24 10:01 Source: patient, EMS, RN notes reviewed Mode of arrival: EMS Limitations: no limitations - History of Present Illness Initial Comments: This is an 88-year-old female who presents to the emergency department for shortness of breath. Patient reports increasing shortness of breath over the last couple of days. Patient has a history of COPD and does breathing treatments regularly. States that she was up all night last night due to her sh ortness of breath and coughing, and did not use any of her breathing treatments. When EMS arrived, they state that the patient had an oxygen saturation in the 80s. They put her on a nasal cannula at 4 L. Patient does not use oxygen at home. Denies any sick contacts. Also denies any fevers, chills, or chest pain. She was given 2 DuoNeb breathing treatments and Solu-Medrol by EMS on route, which she states was helpful. When EMS arrived, they did note the patient to be tachycardic and it appeared that she was in A-fib with RVR. Patient denies a history of A-fib. However, she is on Eliquis, but is unsure why. MD Complaint: shortness of breath, cough - Related Data Home Medications Medication Instructions Recorded Confirmed Gabapentin [Neurontin] 100 mg PO BID@04/19/19 03/23/24 Levothyroxine Sodium 12.5 mcg PO DAILY 04/19/19 03/23/24 Albuterol Nebulized [Ventolin 2.5 mg INHALATION RT-QID PRN 10/21/19 03/23/24 Nebulized] Albuterol Inhaler [Ventolin Hfa 1 - 2 puff INHALATION RT-QID PRN 03/23/24 Inhaler] Apixaban [Eliquis] 2.5 mg PO BID 03/23/24 03/23/24 Fluticasone/Umeclidin/Vilanter 1 puff INHALATION RT-DAILY 03/23/24 03/23/24 [Trelegy Ellipta 100-62.5-25] Gabapentin [Neurontin] 300 mg PO HS@222903/23/24 03/23/24 Losartan [Cozaar] 25 mg PO DAILY 03/23/24 03/23/24 hydroCHLOROthiazide 12.5 mg PO DAILY 03/23/24 03/23/24 Allergies Allergy/AdvReac Type Severity Reaction Status Date / Time Penicillins Allergy Rash/Hives Verified 03/23/24 11:44 Review of Systems ROS Statement: Those systems with pertinent positive or pertinent negative responses have been documented in the HPI. ROS Other: All systems not noted in ROS Statement are negative. Past Medical History Past Medical History: Hypertension, Respiratory Disorder Additional Past Medical History / Comment(s): 50 year smoking history however quit in 1999. Numbness and tingling of the bilateral feet History of Any Multi-Drug Resistant Organisms: None Reported Past Surgical History: Orthopedic Surgery, Tonsillectomy, Tubal Ligation Additional Past Surgical History / Comment(s): right hip replacement, cataract surgery Past Anesthesia/Blood Transfusion Reactions: No Reported Reaction Past Psychological History: No Psychological Hx Reported Smoking Status: Former smoker Past Alcohol Use History: None Reported Past Drug Use History: None Reported General Exam Limitations: no limitations General appearance: alert, in no apparent distress Head exam: Present: atraumatic, normocephalic, normal inspection Respiratory exam: Present: decreased breath sounds, prolonged expiratory Cardiovascular Exam: Present: tachycardia, irregular rhythm Neurological exam: Present: alert, oriented X3, CN II-XII intact Psychiatric exam: Present: normal affect, normal mood Skin exam: Present: warm, dry, intact, normal color. Absent: rash Course Vital Signs 03/23/24 03/23/24 03/23/24 10:15 10:22 11:44 Temperature 101.1 F H Pulse Rate 130 H 125 H Respiratory 20 20 Rate Blood Pressure 98/76 O2 Sat by Pulse 96 Oximetry 03/23/24 03/23/24 03/23/24 11:53 11:54 12:08 Temperature 97.6 F Pulse Rate 109 H 117 H 128 H Respiratory 20 18 Rate Blood Pressure 94/47 110/56 O2 Sat by Pulse 97 98 Oximetry 03/23/24 13:54 Temperature 97.9 F Pulse Rate 134 H Respiratory 18 Rate Blood Pressure 110/56 O2 Sat by Pulse 95 Oximetry Medical Decision Making - Medical Decision Making This is an 88 year old female who presents to the emergency department for shortness of breath. Was pt. sent in by a medical professional or institution? @ -No Did you speak to anyone other than the patient for history? @ -No Did you review nursing and triage notes? @ -Yes, and I agree, it is accurate with regards to the patient's symptoms. Were old charts reviewed? @ -No Differential Diagnosis? @ -Differential Dyspnea: Coronary syndrome, arrhythmia, tamponade, asthma, COPD, pulmonary embolism, pneumonia, pneumothorax, pulmonary effusion, anaphylaxis, diabetic ketoacidosis, flailed chest, pulmonary contusion, diaphragmatic rupture, anemia, neuromuscular, this is not meant to be an all-inclusive list. EKG interpreted by me (3pts min.)? @ -EKG interpreted by me demonstrating the following: Atrial fibrillation with rapid ventricular response. Ventricular rate 140 bpm, QRS duration 141 ms, QTc 393 ms. X-rays interpreted by me (1pt min.)? @ -Chest x-ray obtained. My interpretation identifies no evidence of a pleural effusion. CT interpreted by me (1pt min.)? @ -Not obtained U/S interpreted by me (1pt. min.)? @ -Not obtained What testing was considered but not performed? (CT, X-rays, U/S, labs)? Why? @ -None What meds were considered but not given? Why? @ -None Did you discuss the management of the patient with other professionals? @ -Yes, Dr. Perea, who accepts the patient for admission. Did you reconcile home meds? @ -Yes Was smoking cessation discussed for >3mins.? @ -No Was critical care preformed (if so, how long)? @ -No Were there social determinants of health that impacted care today? How? (Homelessness, low income, unemployed, alcoholism, drug addiction, transportation, low edu. Level, literacy, decrease access to med. care, assisted, rehab)? @ -No Was there de-escalation of care discussed even if they declined? (Discuss DNR or withdrawal of care, Hospice)? @ -No What co-morbidities impacted this encounter? (DM, HTN, Smoking, COPD, CAD, Cancer, CVA, Hep., AIDS, mental health diagnosis, sleep apnea, morbid obesity)? @ -COPD Was patient admitted / discharged? @ -Admitted. Patient was febrile on arrival with a temperature of 101.1 F. She was also in A-fib with RVR. She was initially given a 1L bolus of IV fluids as well as ibuprofen and Tylenol. Lab work demonstrates an elevated BNP of 5390. Troponin also elevated at 0.192. This is similar to a value she had in 2019 of 0.108. COVID, influenza, and RSV testing negative. Chest x-ray dem onstrates mild cardiomegaly and interstitial changes. She also has a new focal opacity in the posterior base on the lateral view suggestive of pneumonia. Patient appears to have a new onset A-fib with RVR in addition to pneumonia and CHF exacerbation. Blood cultures were obtained and she was started on the pneumonia protocol with ceftriaxone and azithromycin. Because there is a potential reason for the A-fib with RVR secondary to an infection, per the recommendation of ED attending, patient was not started on any medication for the A-fib with RVR. Patient admitted to medicine for pneumonia, CHF, and new onset A-fib with RVR. Consult placed for pulmonology and cardiology. Undiagnosed new problem with uncertain prognosis? @ -None Drug Therapy requiring intensive monitoring for toxicity (Heparin, Nitro, Insulin, Cardizem)? @ -None Were any procedures done? @ -None Diagnosis/symptom? @ -Pneumonia, new onset A-fib Acute, or Chronic, or Acute on Chronic? @ -Acute Uncomplicated (without systemic symptoms) or Complicated (systemic symptoms)? @ -Complicated Side effects of treatment? @ -None Exacerbation, Progression, or Severe Exacerbation] @ -Not applicable Poses a threat to life or bodily function? @ -Yes Diagnosis/symptom? @ -CHF exacerbation Acute, or Chronic, or Acute on Chronic? @ -Acute on chronic Uncomplicated (without systemic symptoms) or Complicated (systemic symptoms)? @ -Uncomplicated Side effects of treatment? @ -None Exacerbation, Progression, or Severe Exacerbation] @ -Exacerbation Poses a threat to life or bodily function? @ -Yes This case was discussed in detail with the attending ED physician, Dr. Flores. Presentation, findings, and treatment plan discussed in detail as well. - Lab Data Result diagrams: 03/23/24 10:22 03/23/24 10: Lab Results 03/23/24 03/23/24 03/23/24 Range/Units 10:22 10:22 10:22 WBC 7.4 (3.8-10.6) k/uL RBC 3.86 (3.80-5.40) m/uL Hgb 11.7 (11.4-16.0) gm/dL Hct 36.1 (34.0-46.0) % MCV 93.6 (80.0-100.0) fL MCH 30.3 (25.0-35.0) pg MCHC 32.4 (31.0-37.0) g/dL RDW 13.2 (11.5-15.5) % Plt Count 260 (150-450) k/uL MPV 7.8 Neutrophils % (Manual) 49 % Band Neuts % (Manual) 7 % Lymphocytes % (Manual) 27 % Monocytes % (Manual) 17 % Eosinophils % (Manual) 1 % Myelocytes % 1 % Neutrophils # (Manual) 4.10 (1.3-7.7) k/uL Lymphocytes # (Manual) 2.00 (1.0-4.8) k/uL Monocytes # (Manual) 1.26 H (0-1.0) k/uL Eosinophils # (Manual) 0.07 (0-0.7) k/uL Myelocytes # (Manual) 0.07 H (0) k/uL Nucleated RBCs 0 (0-0) /100 WBC Manual Slide Review Performed RBC Morphology Normal PT 11.0 (10.0-12.5) sec INR 1.0 (<1.2) APTT 26.4 (22.0-30.0) sec Sodium 135 L (137-145) mmol/L Potassium 4.4 (3.5-5.1) mmol/L Chloride 106 (98-107) mmol/L Carbon Dioxide 19 L (22-30) mmol/L Anion Gap 10 mmol/L BUN 33 H (7-17) mg/dL Creatinine 1.39 H (0.52-1.04) mg/dL Est GFR (CKD-EPI)AfAm 39 (>60 ml/min/1.73 sqM) Est GFR (CKD-EPI)NonAf 34 (>60 ml/min/1.73 sqM) Glucose 151 H (74-99) mg/dL Plasma Lactic Acid Basilio (0.7-2.0) mmol/L Calcium 8.6 (8.4-10.2) mg/dL Magnesium 2.1 (1.6-2.3) mg/dL Total Bilirubin 1.0 (0.2-1.3) mg/dL AST 29 (14-36) U/L ALT 15 (4-34) U/L Alkaline Phosphatase 158 H (38-126) U/L Troponin I (0.000-0.034) ng/mL NT-Pro-B Natriuret Pep 5390 pg/mL Total Protein 7.6 (6.3-8.2) g/dL Albumin 3.9 (3.5-5.0) g/dL Urine Color Urine Appearance (Clear) Urine pH (5.0-8.0) Ur Specific [place] (1.001-1.035) Urine Protein (Negative) Urine Glucose (UA) (Negative) Urine Ketones (Negative) Urine Blood (Negative) Urine Nitrite (Negative) Urine Bilirubin (Negative) Urine Urobilinogen (<2.0) mg/dL Ur Leukocyte Esterase (Negative) Urine RBC (0-5) /hpf Urine WBC (0-5) /hpf Ur Squamous Epith Cells (0-4) /hpf Hyaline Casts (0-2) /lpf Urine Mucus (None) /hpf Influenza Type A (PCR) (Not Detectd) Influenza Type B (PCR) (Not Detectd) RSV (PCR) (Not Detectd) SARS-CoV-2 (PCR) (Not Detectd) 03/23/24 03/23/24 03/23/24 Range/Units 10:22 10:22 10:22 WBC (3.8-10.6) k/uL RBC (3.80-5.40) m/uL Hgb (11.4-16.0) gm/dL Hct (34.0-46.0) % MCV (80.0-100.0) fL MCH (25.0-35.0) pg MCHC (31.0-37.0) g/dL RDW (11.5-15.5) % Plt Count (150-450) k/uL MPV Neutrophils % (Manual) % Band Neuts % (Manual) % Lymphocytes % (Manual) % Monocytes % (Manual) % Eosinophils % (Manual) % Myelocytes % % Neutrophils # (Manual) (1.3-7.7) k/uL Lymphocytes # (Manual) (1.0-4.8) k/uL Monocytes # (Manual) (0-1.0) k/uL Eosinophils # (Manual) (0-0.7) k/uL Myelocytes # (Manual) (0) k/uL Nucleated RBCs (0-0) /100 WBC Manual Slide Review RBC Morphology PT (10.0-12.5) sec INR (<1.2) APTT (22.0-30.0) sec Sodium (137-145) mmol/L Potassium (3.5-5.1) mmol/L Chloride (98-107) mmol/L Carbon Dioxide (22-30) mmol/L Anion Gap mmol/L BUN (7-17) mg/dL Creatinine (0.52-1.04) mg/dL Est GFR (CKD-EPI)AfAm (>60 ml/min/1.73 sqM) Est GFR (CKD-EPI)NonAf (>60 ml/min/1.73 sqM) Glucose (74-99) mg/dL Plasma Lactic Acid Basilio 1.7 (0.7-2.0) mmol/L Calcium (8.4-10.2) mg/dL Magnesium (1.6-2.3) mg/dL Total Bilirubin (0.2-1.3) mg/dL AST (14-36) U/L ALT (4-34) U/L Alkaline Phosphatase (38-126) U/L Troponin I 0.192 H* (0.000-0.034) ng/mL NT-Pro-B Natriuret Pep pg/mL Total Protein (6.3-8.2) g/dL Albumin (3.5-5.0) g/dL Urine Color Urine Appearance (Clear) Urine pH (5.0-8.0) Ur Specific [place] (1.001-1.035) Urine Protein (Negative) Urine Glucose (UA) (Negative) Urine Ketones (Negative) Urine Blood (Negative) Urine Nitrite (Negative) Urine Bilirubin (Negative) Urine Urobilinogen (<2.0) mg/dL Ur Leukocyte Esterase (Negative) Urine RBC (0-5) /hpf Urine WBC (0-5) /hpf Ur Squamous Epith Cells (0-4) /hpf Hyaline Casts (0-2) /lpf Urine Mucus (None) /hpf Influenza Type A (PCR) Not Detected (Not Detectd) Influenza Type B (PCR) Not Detected (Not Detectd) RSV (PCR) Not Detected (Not Detectd) SARS-CoV-2 (PCR) Not Detected (Not Detectd) 03/23/24 Range/Units 11:35 WBC (3.8-10.6) k/uL RBC (3.80-5.40) m/uL Hgb (11.4-16.0) gm/dL Hct (34.0-46.0) % MCV (80.0-100.0) fL MCH (25.0-35.0) pg MCHC (31.0-37.0) g/dL RDW (11.5-15.5) % Plt Count (150-450) k/uL MPV Neutrophils % (Manual) % Band Neuts % (Manual) % Lymphocytes % (Manual) % Monocytes % (Manual) % Eosinophils % (Manual) % Myelocytes % % Neutrophils # (Manual) (1.3-7.7) k/uL Lymphocytes # (Manual) (1.0-4.8) k/uL Monocytes # (Manual) (0-1.0) k/uL Eosinophils # (Manual) (0-0.7) k/uL Myelocytes # (Manual) (0) k/uL Nucleated RBCs (0-0) /100 WBC Manual Slide Review RBC Morphology PT (10.0-12.5) sec INR (<1.2) APTT (22.0-30.0) sec Sodium (137-145) mmol/L Potassium (3.5-5.1) mmol/L Chloride (98-107) mmol/L Carbon Dioxide (22-30) mmol/L Anion Gap mmol/L BUN (7-17) mg/dL Creatinine (0.52-1.04) mg/dL Est GFR (CKD-EPI)AfAm (>60 ml/min/1.73 sqM) Est GFR (CKD-EPI)NonAf (>60 ml/min/1.73 sqM) Glucose (74-99) mg/dL Plasma Lactic Acid Basilio (0.7-2.0) mmol/L Calcium (8.4-10.2) mg/dL Magnesium (1.6-2.3) mg/dL Total Bilirubin (0.2-1.3) mg/dL AST (14-36) U/L ALT (4-34) U/L Alkaline Phosphatase (38-126) U/L Troponin I (0.000-0.034) ng/mL NT-Pro-B Natriuret Pep pg/mL Total Protein (6.3-8.2) g/dL Albumin (3.5-5.0) g/dL Urine Color Yellow Urine Appearance Cloudy H (Clear) Urine pH 5.5 (5.0-8.0) Ur Specific [place] 1.020 (1.001-1.035) Urine Protein 1+ H (Negative) Urine Glucose (UA) Negative (Negative) Urine Ketones Negative (Negative) Urine Blood Trace H (Negative) Urine Nitrite Negative (Negative) Urine Bilirubin Negative (Negative) Urine Urobilinogen 2.0 (<2.0) mg/dL Ur Leukocyte Esterase Small H (Negative) Urine RBC 3 (0-5) /hpf Urine WBC 2 (0-5) /hpf Ur Squamous Epith Cells 21 H (0-4) /hpf Hyaline Casts 1 (0-2) /lpf Urine Mucus Occasional H (None) /hpf Influenza Type A (PCR) (Not Detectd) Influenza Type B (PCR) (Not Detectd) RSV (PCR) (Not Detectd) SARS-CoV-2 (PCR) (Not Detectd) - Radiology Data Radiology results: report reviewed, image reviewed Disposition Clinical Impression: Pneumonia, CHF exacerbation, New onset a-fib Disposition: ADMITTED IP TO THIS HOSP Referrals: Miguel Kumari, DENISE [Family Provider] - 1-2 days
[2024-03-23] MEDS: SODIUM CHLORIDE 0.9% 1,000 ML IV STA (10:30)
[2024-03-23] MEDS: IBUPROFEN 600 MG TAB PO STA (10:30)
[2024-03-23] MEDS: ACETAMINOPHEN TAB 500 MG TAB PO STA (10:31)
[2024-03-23 10:42] LABS: Partial Thromboplastin Time 26.4 sec (22.0-30.0)
[2024-03-23 10:55] LABS: HCT 36.1 % (34.0-46.0); HGB 11.7 gm/dL (11.4-16.0); MCH 30.3 pg (25.0-35.0); MCHC 32.4 g/dL (31.0-37.0); MCV 93.6 fL (80.0-100.0); Mean Platelet Volume 7.8; Platelet Count 260 k/uL (150-450); RBC 3.86 m/uL (3.80-5.40); RDW 13.2 % (11.5-15.5); WBC 7.4 k/uL (3.8-10.6)
[2024-03-23 11:05] LABS: ALT 15 U/L (4-34); AST 29 U/L (14-36); African American GFR (CKD) 39 (>60 ml/min/1.73 sqM); Albumin 3.9 g/dL (3.5-5.0); Alkaline Phosphatase 158 U/L (38-126); Anion Gap 10 mmol/L; Blood Urea Nitrogen 33 mg/dL (7-17); Calcium 8.6 mg/dL (8.4-10.2); Carbon Dioxide 19 mmol/L (22-30); Chloride 106 mmol/L (98-107); Glucose 151 mg/dL (74-99); Magnesium 2.1 mg/dL (1.6-2.3); Non-African American GFR(CKD) 34 (>60 ml/min/1.73 sqM); Potassium 4.4 mmol/L (3.5-5.1); Sodium 135 mmol/L (137-145); Total Protein 7.6 g/dL (6.3-8.2)
--- NOTE | 2024-03-23 11:06 | XR ---
EXAMINATION TYPE: XR chest 2V DATE OF EXAM: 03/23/2024 COMPARISON: 10/24/2019 HISTORY: 88-year-old female shortness of breath, difficulty breathing TECHNIQUE: AP and lateral views FINDINGS: Heart mildly enlarged. Mild interstitial prominence. Mild hyperinflation. Focal posterior basilar opa [place] on the lateral view. IMPRESSION: 1. Mild cardiomegaly and interstitial changes. Correlate for CHF and mild pulmonary vascular congesti on superimposed on COPD. 2. Additional new focal opacity posterior base on the lateral view. Correlate to exclude any potentia l signs/symptoms of pneumonia.
[2024-03-23 11:13] LABS: NT-Pro-B-Type Natriuretic Pept 5390 pg/mL
[2024-03-23] MEDS ORDERED: PNEUMONIA PROTOCOL UTILIZED 1 EACH MISC PO PRN (11:15)
[2024-03-23] MEDS ORDERED: IPRATROPIUM-ALBUTEROL 3 ML NEB INHALATION PRN (11:15)
[2024-03-23] MEDS: IPRATROPIUM-ALBUTEROL 3 ML NEB INHALATION SCH (11:44)
[2024-03-23] MEDS ORDERED: NON FORMULARY DRUG (Albuterol Inhaler 90 MCG Puff) INHALATION PRN (11:49)
[2024-03-23] MEDS ORDERED: ALBUTEROL NEBULIZED 2.5 MG/3 ML INHALATION PRN (11:49)
[2024-03-23 12:06] LABS: Band Neutrophils % 7 %; Eosinophils # (M) 0.07 k/uL (0-0.7); Monocytes # (M) 1.26 k/uL (0-1.0); Myelocytes # (M) 0.07 k/uL (0); Myelocytes % 1 %; Neutrophils % (M) 49 %; Nucleated Red Blood Cells 0 /100 WBC (0-0); Total Cells Counted 200
[2024-03-23] MEDS: SODIUM CHLORIDE 0.9% 500 ML 500 ML IV STA (12:10)
[2024-03-23 12:11] LABS: RBC Morphology Normal
[2024-03-23] MEDS: AZITHROMYCIN 500 MG in SODIUM CHLORIDE 0.9% 250 ML IVPB STA (12:44)
[2024-03-23] MEDS ORDERED: NALOXONE 0.4 MG/ML 1 ML VIAL IV PRN (12:45)
[2024-03-23] MEDS ORDERED: ACETAMINOPHEN TAB 325 MG TAB PO PRN (12:45)
[2024-03-23] MEDS ORDERED: MORPHINE SULFATE 4 MG/ML SYRINGE IV PRN (12:45)
[2024-03-23] MEDS ORDERED: HYDROcodone/APAP 5-325MG 1 EACH TAB PO PRN (12:45)
[2024-03-23 13:00] LABS: Appearance,Urine Cloudy (Clear); Bilirubin,Urine Negative (Negative); Blood,Urine Trace (Negative); Color,Urine Yellow; Glucose,Urine (UA) Negative (Negative); Hyaline Casts,Urine 1 /lpf (0-2); Ketones,Urine Negative (Negative); Leukocyte Esterase,Urine Small (Negative); Mucus,Urine Occasional /hpf; Nitrite,Urine Negative (Negative); PH, Urine 5.5 (5.0-8.0); Protein,Urine 1+ (Negative); RBC,Urine 3 /hpf (0-5); Squamous Epithelial Cell,Urine 21 /hpf (0-4); WBC,Urine 2 /hpf (0-5)
[2024-03-23] MEDS: ONDANSETRON 4 MG/2 ML VIAL IVP PRN (15:44)
[2024-03-23] MEDS ORDERED: HYDROmorphone 0.5 MG/0.5 ML SYRINGE IVP PRN (16:11)
[2024-03-23] MEDS: DILTIAZEM 125 MG in SODIUM CHLORIDE 0.9% 100 ML IV SCH (16:51)
--- NOTE | 2024-03-23 17:40 | P.CNPUL ---
History of Present Illness Consult date: 03/23/24 Requesting physician: Martha Perea Reason for consult: dyspnea, cough Chief complaint: Shortness of breath, cough, congestion History of present illness: This is a very pleasant 88-year-old female patient with a known history of chronic obstructive pulmonary disease, former smoker, atrial fibrillation anticoagulated with Eliquis, hypertension, hypothyroidism. Last night she developed significant shortness of breath, cough and congestion and presented here to the emergency room today for the same. She denies any fever or chills. Clear sputum. No hemoptysis. Chest x-ray reveals mild cardiomegaly and interstitial changes consistent with mild pulmonary vascular congestion superimposed on COPD. Possible new focal opacity in the posterior base on the lateral view. White count 7.4. Hemoglobin 11.7. Platelets 260. Sodium 135. Potassium 4.4. Bicarb 19. BUN 33. Creatinine 1.39. Glucose 151. Troponin 0.192, 0.310. proBNP 5390. Viral screen negative. She is seen today in [facility] in the emergency department. She is currently sitting up in a stretcher. Awake and alert in no acute distress. Maintaining O2 saturation in the 90s on room air. Review of Systems REVIEW OF SYSTEMS: CONSTITUTIONAL: Denies any recent significant weight loss or weight gain. EYES: Denies change in vision. EARS, NOSE, MOUTH, THROAT: Denies headaches, denies sore throat. CARDIOVASCULAR: Denies chest pain, palpitations or syncopal episodes. RESPIRATORY: Positive for shortness of breath, cough, congestion no hemoptysis. GASTROINTESTINAL: Denies change in appetite, denies abdominal pain GENITOURINARY: Denies hematuria, denies infections. MUSKULOSKELETAL: Denies pain, denies swelling. INTEGUMENTARY: Denies rash, denies eczema. NEUROLOGICAL: Denies recent memory loss, no recent seizure activity. PSYCHIATRIC: Denies anxiety, denies depression. HEMATOLOGIC/LYMPHATIC: Denies anemia, denies enlarged lymph nodes. Past Medical History Past Medical History: Hypertension, Respiratory Disorder Additional Past Medical History / Comment(s): 50 year smoking history however quit in 1999. Numbness and tingling of the bilateral feet History of Any Multi-Drug Resistant Organisms: None Reported Past Surgical History: Orthopedic Surgery, Tonsillectomy, Tubal Ligation Additional Past Surgical History / Comment(s): right hip replacement, cataract surgery Past Anesthesia/Blood Transfusion Reactions: No Reported Reaction Past Psychological History: No Psychological Hx Reported Smoking Status: Former smoker Past Alcohol Use History: None Reported Past Drug Use History: None Reported Medications and Allergies Home Medications Medication Instructions Recorded Confirmed Type Gabapentin [Neurontin] 100 mg PO BID@1000,199904/19/19 03/23/24 History Levothyroxine Sodium 12.5 mcg PO DAILY 04/19/19 03/23/24 History Albuterol Nebulized [Ventolin 2.5 mg INHALATION RT-QID PRN 10/21/19 03/23/24 History Nebulized] Albuterol Inhaler [Ventolin Hfa 1 - 2 puff INHALATION RT-QID PRN 03/23/24 03/23/24 History Inhaler] Apixaban [Eliquis] 2.5 mg PO BID 03/23/24 03/23/24 History Fluticasone/Umeclidin/Vilanter 1 puff INHALATION RT-DAILY 03/23/24 03/23/24 History [Trelegy Ellipta 100-62.5-25] Gabapentin [Neurontin] 300 mg PO HS@22303/23/24 03/23/24 History Losartan [Cozaar] 25 mg PO DAILY 03/23/24 03/23/24 History hydroCHLOROthiazide 12.5 mg PO DAILY 03/23/24 03/23/24 History Allergies Allergy/AdvReac Type Severity Reaction Status Date / Time Penicillins Allergy Rash/Hives Verified 03/23/24 11:44 Physical Exam Vitals: Vital Signs Temp Pulse Resp BP Pulse Ox 03/23/24 16:22 88 03/23/24 16:12 128 H 03/23/24 13:54 97.9 F 134 H 18 110/56 95 03/23/24 12:08 97.6 F 128 H 18 110/56 98 03/23/24 11:54 117 H 03/23/24 11:53 109 H 20 94/47 97 03/23/24 11:44 125 H 03/23/24 10:22 20 03/23/24 10:15 101.1 F H 130 H 20 98/76 96 Intake and Output 03/23/24 03/23/24 03/23/24 06:59 14:59 22:59 Other: Weight 68.039 kg GENERAL EXAM: Alert, very pleasant, hard of hearing 88-year-old female, on room air, fairly comfortable in no apparent distress. HEAD: Normocephalic. EYES: Normal reaction of pupils, equal size. NOSE: Clear with pink turbinates. THROAT: No erythema or exudates. NECK: No masses, no JVD. CHEST: No chest wall deformity. LUNGS: Equal air entry with crackles in the bilateral bases. CVS: S1 and S2 normal with no audible murmur, regular rhythm. ABDOMEN: No hepatosplenomegaly, normal bowel sounds, no guarding or rigidity. SPINE: No scoliosis or deformity SKIN: No rashes CENTRAL NERVOUS SYSTEM: No focal deficits, tone is normal in all 4 extremities. EXTREMITIES: There is no peripheral edema. No clubbing, no cyanosis. Peripheral pulses are intact. Results - Laboratory Findings CBC and BMP: 03/23/24 10:22 03/23/24 10:22 PT/INR, D-dimer PT 11.0 sec (10.0-12.5) 03/23/24 10:22 INR 1.0 (<1.2) 03/23/24 10:22 Abnormal lab findings: Abnormal Labs 03/23/24 03/23/24 03/23/24 10:22 10:22 10:22 Monocytes # (Manual) 1.26 H Myelocytes # (Manual) 0.07 H Sodium 135 L Carbon Dioxide 19 L BUN 33 H Creatinine 1.39 H Glucose 151 H Alkaline Phosphatase 158 H Troponin I 0.192 H* Urine Appearance Urine Protein Urine Blood Ur Leukocyte Esterase Ur Squamous Epith Cells Urine Mucus 03/23/24 03/23/24 11:35 13:59 Monocytes # (Manual) Myelocytes # (Manual) Sodium Carbon Dioxide BUN Creatinine Glucose Alkaline Phosphatase Troponin I 0.310 H* Urine Appearance Cloudy H Urine Protein 1+ H Urine Blood Trace H Ur Leukocyte Esterase Small H Ur Squamous Epith Cells 21 H Urine Mucus Occasional H - Diagnostic Findings Chest x-ray: image reviewed Assessment and Plan Assessment: Dyspnea secondary to an acute exacerbation of systolic versus diastolic congestive heart failure. proBNP 5309. Possible early pneumonia, procalcitonin pending, COPD exacerbation Acute on chronic atrial fibrillation initially presenting with rapid ventricular response, anticoagulated with Eliquis Troponin leak suspect secondary to above Chronic obstructive pulmonary disease Former heavy smoker Hypertension Hypothyroidism Plan: The patient was seen and evaluated Chest x-ray, labs and medications reviewed Check a procalcitonin Continue antibiotics for now Continue bronchodilators Echocardiogram pending Give Lasix 20 milligrams IVP x 1 Decrease fluids to KVO Continue Eliquis We will continue to follow and make further recommendations based on her clinical status I have personally seen and examined the patient, performed the documentation and the assessment and plan as written. Number of minutes spent on the visit: 20.
[2024-03-23] MEDS: FUROSEMIDE 10 MG/ML 2 ML VIAL IV ONE (18:48)
[2024-03-23] MEDS: SYMBICORT 80-4.5 MCG INHALER INHALATION SCH (19:55)
[2024-03-23] MEDS: GABAPENTIN 100 MG CAP PO SCH (20:33)
[2024-03-23] MEDS: APIXABAN 2.5 MG TABLET PO SCH (20:33)
--- NOTE | 2024-03-23 22:01 | HP ---
HISTORY AND PHYSICAL CHIEF COMPLAINT: Shortness of breath and cough. HISTORY OF PRESENT ILLNESS: This is an 88-year-old woman with a past medical history of multiple medical problems including COPD and significant shortness of breath over the past several days. The patient also has some cough and sputum also. The patient was resumed on breathing treatments. EMS found the saturation in the 80s. The patient was found to be in atrial fibrillation with fast ventricular rate and the patient is being admitted for further evaluation. Left lower lobe pneumonia is also suspected. There is no history of any headache, loss of consciousness, or seizures. Temperature was 101.1. PAST MEDICAL HISTORY: Reviewed include COPD. Rest of the history and rest of the chart is also reviewed. HOME MEDICATIONS: Reviewed include Trelegy. Dose and rest of medications reviewed. ALLERGIES: Penicillin. FAMILY HISTORY: No history of heart disease or strokes in the family. SOCIAL HISTORY: Remote history of smoking. REVIEW OF SYSTEMS: Fourteen-point review is negative except as mentioned earlier. PHYSICAL EXAMINATION: VITAL SIGNS: Pulse is 128, irregularly irregular. Atrial fibrillation in the monitor. Blood pressure 110/56, respirations 18. HEENT: Conjunctivae normal. NECK: No JVD. CARDIOVASCULAR: S1, S2. RESPIRATIONS: Breath sounds diminished at the bases. A few scattered rhonchi and crackles. ABDOMEN: Soft, nontender. LEGS: No edema. NERVOUS SYSTEM: Nonfocal. LABORATORY DATA: Reviewed. ASSESSMENT: 1. Chronic obstructive pulmonary disease acute exacerbation with left lower lobe pneumonia possibly. 2. Atrial fibrillation with fast ventricular rate. 3. Troponin 0.310, possible acute uax-[id number] elevation myocardial infarction. 4. Chronic kidney disease, stage 3. 5. Hypertension. 6. Degenerative joint disease. 7. Remote history of nicotine dependence. RECOMMENDATIONS AND DISCUSSION: This is an 88-year-old woman, who presented with multiple complex medical issues, we will monitor the patient closely. I would recommend initiate broad-spectrum antibiotics, intensive bronchodilators. Cardiology, Pulmonary consultations, possibly Cardizem drip with a heart rate persistently high. We will continue to monitor. See orders for further details. Further recommendations to follow. We will also obtain a 2D echo with Doppler. MMODL / IJN: [id number] /
[2024-03-23] MEDS: GABAPENTIN 300 MG CAP PO SCH (22:58)
[2024-03-24] MEDS: LEVOTHYROXINE 25 MCG TAB PO SCH (07:51)
[2024-03-24] MEDS ORDERED: IPRATROPIUM 0.5 MG/2.5 ML NEBU INHALATION SCH (08:00)
[2024-03-24] MEDS: hydroCHLOROthiazide 12.5 MG CAP PO SCH (08:22)
[2024-03-24] MEDS: LOSARTAN 25 MG TAB PO SCH (08:22)
[2024-03-24] MEDS: PANTOPRAZOLE 40 MG/10 ML VIAL IV SCH (09:41)
[2024-03-24] MEDS: AZITHROMYCIN 500 MG TAB PO SCH (09:41)
[2024-03-24] MEDS: METOPROLOL TARTRATE 50 MG TAB PO SCH (09:42)
[2024-03-24 11:05] LABS: African American GFR (CKD) 24 (>60 ml/min/1.73 sqM); Anion Gap 10 mmol/L; Blood Urea Nitrogen 42 mg/dL (7-17); Calcium 7.9 mg/dL (8.4-10.2); Carbon Dioxide 20 mmol/L (22-30); Chloride 105 mmol/L (98-107); Glucose 127 mg/dL (74-99); Non-African American GFR(CKD) 21 (>60 ml/min/1.73 sqM); Potassium 4.1 mmol/L (3.5-5.1); Sodium 135 mmol/L (137-145)
[2024-03-24 11:25] LABS: HCT 32.7 % (34.0-46.0); HGB 10.5 gm/dL (11.4-16.0); MCH 30.6 pg (25.0-35.0); MCV 95.7 fL (80.0-100.0); Mean Platelet Volume 8.2; Platelet Count 235 k/uL (150-450); RBC 3.42 m/uL (3.80-5.40); RDW 13.5 % (11.5-15.5); WBC 6.8 k/uL (3.8-10.6)
--- NOTE | 2024-03-24 11:53 | CA ---
Transthoracic Echo Report Name: Stephanie Anderson Age: 88 Gender: F : 1935 Exam Date: 03/24/2024 08:43 Exam Location: [facility] Ht (in): 65 Wt (lb): 150 Ordering Physician: Martha Perea MD Attending/Referring Phys: Superintendent Shanna Bowles RDCS Procedure CPT: Indications: afib Cardiac Hx: Technical Quality: Good Contrast 1: Total Dose (mL): Contrast 2: Total Dose (mL): MEASUREMENTS (Male / Female) Normal Values 2D ECHO LV Diastolic Diameter PLAX 4.0 cm 4.2 - 5.9 / 3.9 - 5.3 cm LV Systolic Diameter PLAX 3.2 cm IVS Diastolic Thickness 1.2 cm 0.6 - 1.0 / 0.6 - 0.9 cm LVPW Diastolic Thickness 1.2 cm 0.6 - 1.0 / 0.6 - 0.9 cm LV Relative Wall Thickness 0.6 RV Internal Dim ED PLAX 2.3 cm LVOT Diameter 1.8 cm LA Systolic Diameter LX 4.1 cm 3.0 - 4.0 / 2.7 - 3.8 cm LV Diastolic Volume MOD BP 53.9 cm??? 67 - 155 / 56 - 104 cm??? LV Systolic Volume MOD BP 33.2 cm??? - 58 / 19 - 49 cm??? LV Ejection Fraction MOD BP 38.4 % >= 55 % LV Cardiac Index MOD BP 908.5 cm???/min???m??? LV Diastolic Volume MOD 4C 54.6 cm??? LV Systolic Volume MOD 4C 29.0 cm??? LV Ejection Fraction MOD 4C 47.0 % LV Cardiac Index MOD 4C 1126.0 cm???/min???m??? LV Diastolic Length 4C 6.9 cm LV Systolic Length 4C 4.2 cm LV Diastolic Volume MOD 2C 54.0 cm??? LV Systolic Volume MOD 2C 27.8 cm??? LV Ejection Fraction MOD 2C 48.5 % LV Cardiac Index MOD 2C 1149.1 cm???/min???m??? LV Diastolic Length 2C 6.9 cm LV Systolic Length 2C 6.3 cm LA Volume 120.8 cm??? 18 - 58 / 22 - 52 cm??? LA Volume Index 68.0 cm???/m??? 16 - 28 cm???/m??? M-MODE Aortic Root Diameter MM 2.6 cm LA Systolic Diameter MM 4.1 cm LA Ao Ratio MM 1.6 AV Cusp Separation MM 1.5 cm DOPPLER AV Peak Velocity 171.2 cm/s AV Peak Gradient 11.7 mmHg AV Mean Velocity 112.6 cm/s AV Mean Gradient 5.9 mmHg AV Velocity Time Integral 41.0 cm LVOT Peak Velocity 101.1 cm/s LVOT Peak Gradient 4.1 mmHg LVOT Velocity Time Integral 28.9 cm LVOT Stroke Volume 75.3 cm??? LVOT Stroke Volume Index 43.0 ml/m??? LVOT Cardiac Index 3306.3 cm???/min???m??? AV Area Cont Eq vti 1.8 cm??? AV Area Cont Eq pk 1.5 cm??? MV Peak Velocity 128.3 cm/s MV Peak Gradient 6.6 mmHg MV Mean Velocity 73.4 cm/s MV Mean Gradient 2.6 mmHg MV Velocity Time Integral 32.2 cm MV Area PHT 3.0 cm??? Mitral E Point Velocity 111.3 cm/s Mitral A Point Velocity 95.4 cm/s Mitral E to A Ratio 1.2 MV Deceleration Time 252.7 ms TR Peak Velocity 292.6 cm/s TR Peak Gradient 34.3 mmHg Right Ventricular Systolic Press 48.3 mmHg FINDINGS Left Ventricle Left ventricular ejection fraction is estimated at 45-50 %. Mildly increased septal wall thickness. Mildly increased posterior wall thickness. Left ventricular cavity size normal. Right Ventricle Normal right ventricular size and function. Moderate pulmonary hypertension. Right Atrium Mild right atrial dilatation. Left Atrium Mildly increased left atrial diameter. Severely increased left atrial volume. Mildly increased left atrial area. Mitral Valve Structurally normal mitral valve. [id number] mitral regurgitation. Severe mitral annular calcification. No mitral stenosis. Aortic Valve Trileaflet aortic valve. Thickened aortic valve without stenosis. No aortic regurgitation. Tricuspid Valve Structurally normal tricuspid valve. Paaxemyx-dp-aibzne tricuspid regurgitation. Pulmonic Valve Structurally normal pulmonic valve. Trace to mild pulmonic regurgitation. Pericardium No pericardial or pleural effusion. Aorta Normal size aortic root and proximal ascending aorta. CONCLUSIONS LV size is normal with mild global decrease in contractility estimated ejection fraction of about 50%. There is moderate to severe mitral and tricuspid regurgitation with moderate pulmonary hypertension. There is mitral annular calcification and nonspecific thickening of mitral valve leaflets. There is no pericardial effusion Previewed by: Dr. Gregory Jackson MD (Electronically Signed) Final Date: 24 Mar 2024 11:52
[2024-03-24] MEDS: FUROSEMIDE 40 MG TAB PO SCH (12:41)
[2024-03-24 12:55] LABS: Band Neutrophils % 7 %; Eosinophils # (M) 0.07 k/uL (0-0.7); Lymphocytes # (M) 0.61 k/uL (1.0-4.8); Monocytes # (M) 0.68 k/uL (0-1.0); Neutrophils % (M) 73 %; Nucleated Red Blood Cells 0 /100 WBC (0-0); Total Cells Counted 100
[2024-03-24 12:56] LABS: RBC Morphology Normal
--- NOTE | 2024-03-24 16:59 | P.PN ---
Subjective Progress Note Date: 03/24/24 This is a very pleasant 88-year-old female patient with a known history of chronic obstructive pulmonary disease, former smoker, atrial fibrillation anticoagulated with Eliquis, hypertension, hypothyroidism. Last night she developed significant shortness of breath, cough and congestion and presented here to the emergency room today for the same. She denies any fever or chills. Clear sputum. No hemoptysis. Chest x-ray reveals mild cardiomegaly and interstitial changes consistent with mild pulmonary vascular congestion superimposed on COPD. Possible new focal opacity in the posterior base on the lateral view. White count 7.4. Hemoglobin 11.7. Platelets 260. Sodium 135. Potassium 4.4. Bicarb 19. BUN 33. Creatinine 1.39. Glucose 151. Troponin 0.192, 0.310. proBNP 5390. Viral screen negative. She is seen today in consultation in the emergency department. She is currently sitting up in a stretcher. Awake and alert in no acute distress. Maintaining O2 saturation in the 90s on room air. The patient is seen today March 24, 2024 in follow-up in the emergency department. She is awake and alert in no acute distress. Breathing a bit easier today compared to yesterday. She is sitting up on the stretcher. Denies any worsening shortness of breath, cough or congestion. He is maintaining good O2 saturations in the 90s on room air. She is afebrile. Hemodynamically stable. Cardiogram reveals mild global decrease in left ventricular systolic function with ejection fraction of 50%. There is moderate to severe mitral and tricuspid regurgitation with moderate pulmonary hypertension. Thickening of the mitral valve leaflets. Sputum culture pending. White count 6.8. Hemoglobin 10.5. Platelets 235. Sodium 135. Potassium 4.1. Bicarb 20. BUN 42. Creatinine 2.07. Procalcitonin was 0.23. She is continued on DuoNeb ventilations, Symbicort. Antibiotics in the form of ceftriaxone. Anticoagulated with Eliquis. Remains on oral diuretics. Objective - Vital Signs Vital signs: Vital Signs Temp 97.6 F 03/24/24 12:42 Pulse 96 03/24/24 15:51 Resp 17 03/24/24 12:42 BP 119/79 03/24/24 12:42 Pulse Ox 97 03/24/24 14:16 FiO2 Intake & Output 03/23/24 03/24/24 03/24/24 18:59 06:59 18:59 Intake Total 10 Balance 10 Weight 68.039 kg Intake: IV 10 Invasive Line 1 10 Other: Voiding Method Bedside Commode - Exam GENERAL EXAM: Alert, hard of hearing 88-year-old female, on room air, comfortabl e in no apparent distress. HEAD: Normocephalic. EYES: Normal reaction of pupils, equal size. NOSE: Clear with pink turbinates. THROAT: No erythema or exudates. NECK: No masses, no JVD. CHEST: No chest wall deformity. LUNGS: Equal air entry with crackles in the bilateral bases. CVS: S1 and S2 normal with no audible murmur, regular rhythm. ABDOMEN: No hepatosplenomegaly, normal bowel sounds, no guarding or rigidity. SPINE: No scoliosis or deformity SKIN: No rashes CENTRAL NERVOUS SYSTEM: No focal deficits, tone is normal in all 4 extremities. EXTREMITIES: There is no peripheral edema. No clubbing, no cyanosis. Peripheral pulses are intact. - Labs CBC & Chem 7: 03/24/24 10:06 03/24/24 10:06 Labs: Abnormal Lab Results - Last 24 Hours (Table) 03/23/24 03/23/24 03/24/24 Range/Units 17:12 17:12 10:06 RBC 3.42 L (3.80-5.40) m/uL Hgb 10.5 L (11.4-16.0) gm/dL Hct 32.7 L (34.0-46.0) % Lymphocytes # (Manual) 0.61 L (1.0-4.8) k/uL Sodium (137-145) mmol/L Carbon Dioxide (22-30) mmol/L BUN (7-17) mg/dL Creatinine (0.52-1.04) mg/dL Glucose (74-99) mg/dL Calcium (8.4-10.2) mg/dL Troponin I 0.285 H* (0.000-0.034) ng/mL Procalcitonin 0.23 H (0.02-0.09) ng/mL 03/24/24 Range/Units 10:06 RBC (3.80-5.40) m/uL Hgb (11.4-16.0) gm/dL Hct (34.0-46.0) % Lymphocytes # (Manual) (1.0-4.8) k/uL Sodium 135 L (137-145) mmol/L Carbon Dioxide 20 L (22-30) mmol/L BUN 42 H (7-17) mg/dL Creatinine 2.07 H (0.52-1.04) mg/dL Glucose 127 H (74-99) mg/dL Calcium 7.9 L (8.4-10.2) mg/dL Troponin I (0.000-0.034) ng/mL Procalcitonin (0.02-0.09) ng/mL Microbiology - Last 24 Hours (Table) 03/23/24 11:35 Gram Stain - Preliminary Sputum Assessment and Plan Assessment: Dyspnea secondary to an acute exacerbation of systolic versus diastolic congestive heart failure. proBNP 5309. Possible early pneumonia, procalcitonin pending, COPD exacerbation Acute on chronic atrial fibrillation initially presenting with rapid ventricular response, anticoagulated with Eliquis Troponin leak suspect secondary to above Chronic obstructive pulmonary disease Former heavy smoker Hypertension Hypothyroidism Plan: The patient was seen and evaluated Labs and medications reviewed Continue antibiotics Continue bronchodilators Echocardiogram reviewed Continue Eliquis We will continue to follow I have personally seen and examined the patient, performed the documentation and the assessment and plan as written. Number of minutes spent on the visit: 10.
--- NOTE | 2024-03-24 21:10 | P.CRDCN ---
History of Present Illness History of present illness: This is Dr. Jiménez dictating a consult on this patient The patient was interviewed and examined IMPRESSION / ASSESSMENT: Sustained atrial fibrillation with RVR Left bundle branch block pattern Past history of cardiomyopathy based on an old echo with anterior and apical akinesis in 2019 Follow-up echo in the office in 2019 showed preserved LV systolic function Patient's had an abnormal cardiac enzymes with a rise and fall pattern, small Admitted with COPD exacerbation with pneumonitis She has spontaneously converted to sinus rhythm while on IV Cardizem PLAN: Continue IV antibiotics and management of COPD exacerbation pneumonitis Stop hydrochlorothiazide component of losartan hydrochlorothiazide Stop losartan since her blood pressure is low normal 1 dose of Lasix IV 40 mg Metoprolol tartrate 50 mg twice daily HPI The patient presented to the ER with increasing shortness of breath for the last few days. She has a past history of COPD and last night she was experiencing shortness of breath and coughing spells When she arrived in the ER she was tachycardic, in atrial fibrillation with RVR She was also febrile to 101.1 degrees ROS: No fever chills or rigors, no cough, phlegm or expectoration, no nausea, vomiting or diarrhea, no hematuria, dysuria, no musculoskeletal complaints, no strokes or seizures, no skin lesions. EXAMINATION: Blood pressure 131/58, pulse rate in the 70s in sinus rhythm afebrile Breath sounds are reduced bilaterally with bilateral rhonchi Heart sounds are regular no murmurs No lower extremity edema REVIEW OF LABS, ECG & MEDICAL DATA White count 6.8 thousand, hemoglobin 10.5, platelet count 235,000 Sodium 135, potassium 4.4 Creatinine 1.39 and then subsequently 2.0 Borderline troponins of 0.2, 0.3 and then 0.285 TSH 1.7 Past Medical History Past Medical History: Hypertension, Respiratory Disorder Additional Past Medical History / Comment(s): 50 year smoking history however quit in 1999. Numbness and tingling of the bilateral feet. patient states she recalls being told she has an irregular heart rhythm but she doesn't remember when History of Any Multi-Drug Resistant Organisms: None Reported Past Surgical History: Orthopedic Surgery, Tonsillectomy, Tubal Ligation Additional Past Surgical History / Comment(s): right hip replacement, cataract surgery Past Anesthesia/Blood Transfusion Reactions: No Reported Reaction Past Psychological History: No Psychological Hx Reported Smoking Status: Former smoker Past Alcohol Use History: None Reported Past Drug Use History: None Reported Medications and Allergies Home Medications Medication Instructions Recorded Confirmed Type Gabapentin [Neurontin] 100 mg PO BID@1000,199904/19/19 03/23/24 History Levothyroxine Sodium 12.5 mcg PO DAILY 04/19/19 03/23/24 History Albuterol Nebulized [Ventolin 2.5 mg INHALATION RT-QID PRN 10/21/19 03/23/24 History Nebulized] Albuterol Inhaler [Ventolin Hfa 1 - 2 puff INHALATION RT-QID PRN 03/23/24 03/23/24 History Inhaler] Apixaban [Eliquis] 2.5 mg PO BID 03/23/24 03/23/24 History Fluticasone/Umeclidin/Vilanter 1 puff INHALATION RT-DAILY 03/23/24 03/23/24 Hist ory [Trelegy Ellipta 100-62.5-25] Gabapentin [Neurontin] 300 mg PO HS@22303/23/24 03/23/24 History Losartan [Cozaar] 25 mg PO DAILY 03/23/24 03/23/24 History hydroCHLOROthiazide 12.5 mg PO DAILY 03/23/24 03/23/24 History Allergies Allergy/AdvReac Type Severity Reaction Status Date / Time Penicillins Allergy Rash/Hives Verified 03/23/24 11:44 Physical Exam Vitals: Vital Signs Temp Pulse Pulse Pulse Resp BP BP 03/24/24 20:20 74 03/24/24 20:04 69 03/24/24 19:49 98.2 F 77 18 131/58 03/24/24 18:43 98 F 93 17 147/63 03/24/24 15:51 96 03/24/24 15:38 76 03/24/24 14:16 67 03/24/24 12:42 97.6 F 73 17 119/79 03/24/24 11:14 70 03/24/24 11:05 66 03/24/24 10:32 97.7 F 67 17 106/78 03/24/24 08:02 73 03/24/24 07:57 03/24/24 07:52 86 03/24/24 06:23 89 20 107/89 03/24/24 02:24 98.4 F 68 16 104/47 05/30/24 22:56 85 18 111/71 Pulse Ox 03/24/24 20:20 03/24/24 20:04 03/24/24 19:49 95 03/24/24 18:43 93 L 03/24/24 15:51 03/24/24 15:38 03/24/24 14:16 97 03/24/24 12:42 94 L 03/24/24 11:14 03/24/24 11:05 03/24/24 10:32 97 03/24/24 08:02 03/24/24 07:57 98 03/24/24 07:52 03/24/24 06:23 94 L 03/24/24 02:24 95 03/23/24 22:56 95 Intake and Output 03/24/24 03/24/24 03/24/24 06:59 14:59 22:59 Other: # Voids 1 Weight 68.039 kg Results 03/24/24 10:06 03/24/24 10:06 CBC 03/24/24 Range/Units 10:06 WBC 6.8 (3.8-10.6) k/uL RBC 3.42 L (3.80-5.40) m/uL Hgb 10.5 L (11.4-16.0) gm/dL Hct 32.7 L (34.0-46.0) % Plt Count 235 (150-450) k/uL Comprehensive Metabolic Panel 03/24/24 Range/Units 10:06 Sodium 135 L (137-145) mmol/L Potassium 4.1 (3.5-5.1) mmol/L Chloride 105 (98-107) mmol/L Carbon Dioxide 20 L (22-30) mmol/L BUN 42 H (7-17) mg/dL Creatinine 2.07 H (0.52-1.04) mg/dL Glucose 127 H (74-99) mg/dL Calcium 7.9 L (8.4-10.2) mg/dL Current Medications Generic Name Dose Route Start Last Admin Trade Name Freq PRN Reason Stop Dose Admin Acetaminophen 650 mg 03/23/24 12:45 Acetaminophen Tab 325 Mg Tab PO Q6HR PRN Mild Pain or Fever > 100.5 Hydrocodone Bitart/Acetaminophen 1 each 03/23/24 12:45 Hydrocodone/Apap 5-325mg 1 Each Tab PO Q4HR PRN Moderate Pain (Scale 4 to 6) Albuterol/Ipratropium 3 ml 03/23/24 11:15 Ipratropium-Albuterol 3 Ml Neb INHALATION RT-Q4H PRN shortness of breath Albuterol/Ipratropium 3 ml 03/23/24 12:00 03/24/24 20:03 Ipratropium-Albuterol 3 Ml Neb INHALATION 3 ml RT-QID PATRICK Administration Apixaban 2.5 mg 03/23/24 21:00 03/24/24 20:49 Apixaban 2.5 Mg Tablet PO 2.5 mg BID PATRICK Administration Protocol Azithromycin 500 mg 03/24/24 09:00 03/24/24 09:41 Azithromycin 500 Mg Tab PO 03/25/24 09:01 500 mg DAILY PATRICK Administration Protocol Budesonide/Formoterol Fumarate 2 puff 03/23/24 20:00 03/24/24 20:04 Symbicort 80-4.5 Mcg Inhaler INHALATION 2 puff RT-BID PATRICK Administration Furosemide 40 mg 03/24/24 12:00 03/24/24 12:41 Furosemide 40 Mg Tab PO 40 mg DAILY PATRICK Administration Gabapentin 100 mg 03/23/24 20:00 03/24/24 20:49 Gabapentin 100 Mg Cap PO 100 mg BID@1000,2000 PATRICK Administration Gabapentin 300 mg 03/23/24 22:30 03/23/24 22:58 Gabapentin 300 Mg Cap PO 300 mg HS@2230 PATRICK Administration Hydromorphone HCl 0.5 mg 03/23/24 16:11 Hydromorphone 0.5 Mg/0.5 Ml Syringe IVP Q4HR PRN Pain Ceftriaxone Sodium 2 gm/ 50 mls @ 100 mls/hr 03/24/24 09:00 03/24/24 09:41 Sodium Chloride IVPB 03/27/24 09:29 100 mls/hr Q24HR PATRICK Administration Protocol Levothyroxine Sodium 12.5 mcg 03/24/24 06:30 03/24/24 07:51 Levothyroxine 25 Mcg Tab PO 12.5 mcg 0630 PATRICK Administration Metoprolol Tartrate 50 mg 03/24/24 09:00 03/24/24 20:49 Metoprolol Tartrate 50 Mg Tab PO 50 mg BID PATRICK Administration Miscellaneous Information 1 each 03/23/24 11:15 Pneumonia Protocol Utilized 1 Each Misc PO ONCE PRN Per Protocol Morphine Sulfate 4 mg 03/23/24 12:45 Morphine Sulfate 4 Mg/Ml Syringe IV Q4HR PRN Severe Pain (Scale 7 to 10) Naloxone HCl 0.2 mg 03/23/24 12:45 Naloxone 0.4 Mg/Ml 1 Ml Vial IV Q2M PRN Opioid Reversal Ondansetron HCl 4 mg 03/23/24 12:45 03/23/24 15:44 Ondansetron 4 Mg/2 Ml Vial IVP 4 mg Q8HR PRN Administration Nausea And Vomiting Pantoprazole Sodium 40 mg 03/25/24 07:30 Pantoprazole 40 Mg Tablet PO [id number] PATRICK Intake and Output 03/24/24 03/24/24 03/24/24 06:59 14:59 22:59 Other: # Voids 1 Weight 68.039 kg Patient Weight 03/25/24 06:59 Weight 68.039 kg 03/24/24 10:06 03/24/24 10:06
[2024-03-24] MEDS ORDERED: BENZOCAINE SPRAY 1 CAN MUCOUS MEM PRN (21:58)
[2024-03-24] MEDS: BENZOCAINE/MENTHOL LOZENG 1 EACH LOZENGE MUCOUS MEM PRN (23:08)
--- NOTE | 2024-03-24 23:29 | PN ---
PROGRESS NOTE DATE OF SERVICE: 03/24/2024 SUBJECTIVE: This is an 88-year-old woman who was admitted with COPD acute exacerbation as well as left lower lobe pneumonia, is being closely monitored. The patient had elevated troponin also. There is no chest pain currently. The patient is still short of breath. Multiple consultants are following the patient closely. A 2D echo with Doppler done by Cardiology showed ejection fraction about 50% and moderate pulmonary hypertension. PAST MEDICAL HISTORY: Reviewed. REVIEW OF SYSTEMS: A 14-point review is negative except as mentioned earlier. CURRENT MEDICATIONS: Reviewed include DuoNeb, dose and rest of medications reviewed. PHYSICAL EXAMINATION: VITAL SIGNS: Pulse 67, blood pressure 106/78, respirations 17. HEENT: Conjunctivae normal. NECK: No jugular venous distention. CARDIOVASCULAR: S1, S2. RESPIRATIONS: Diminished at the bases, few scattered rhonchi. ABDOMEN: Soft, nontender. LEGS: No edema, no swelling. NERVOUS SYSTEM: Nonfocal. LABORATORY DATA: Creatinine 2.0, rest of the labs are noted, troponins noted, procalcitonin 0.23. ASSESSMENT: 1. Chronic obstructive pulmonary disease acute exacerbation with left lower lobe pneumonia possibly. 2. Atrial fibrillation with fast ventricular rate. 3. Troponin 0.310, possible acute zyp-IS-vpbeleu elevation myocardial infarction. 4. Normal ejection fraction on 2D echo. 5. Elevated procalcitonin. 6. Chronic kidney stage 3. 7. Hypertension. 8. Multiple complex medical issues. RECOMMENDATIONS: Recommended to continue current medications, continue symptomatic treatment and bronchodilators. Continue with antibiotics. Continue with steroids. Closely follow. Repeat labs. Repeat chest x-ray. Prognosis extremely guarded because of multiple complex medical issues. Further recommendations to follow. See orders for further recommendations. MMODL / IJN: [id number] /
[2024-03-25 04:20] LABS: HCT 31.1 % (34.0-46.0); HGB 10.1 gm/dL (11.4-16.0); MCH 30.5 pg (25.0-35.0); MCHC 32.6 g/dL (31.0-37.0); MCV 93.6 fL (80.0-100.0); Mean Platelet Volume 7.7; Platelet Count 223 k/uL (150-450); RBC 3.32 m/uL (3.80-5.40); RDW 13.5 % (11.5-15.5); WBC 5.9 k/uL (3.8-10.6)
[2024-03-25 04:43] LABS: African American GFR (CKD) 20 (>60 ml/min/1.73 sqM); Anion Gap 7 mmol/L; Blood Urea Nitrogen 48 mg/dL (7-17); Calcium 7.7 mg/dL (8.4-10.2); Carbon Dioxide 21 mmol/L (22-30); Chloride 106 mmol/L (98-107); Glucose 110 mg/dL (74-99); Non-African American GFR(CKD) 17 (>60 ml/min/1.73 sqM); Potassium 4.6 mmol/L (3.5-5.1); Sodium 134 mmol/L (137-145)
[2024-03-25 06:03] LABS: Band Neutrophils % 2 %; Lymphocytes # (M) 2.42 k/uL (1.0-4.8); Monocytes # (M) 0.41 k/uL (0-1.0); Myelocytes # (M) 0.06 k/uL (0); Myelocytes % 1 %; Neutrophils % (M) 51 %; Nucleated Red Blood Cells 0 /100 WBC (0-0); Total Cells Counted 200
[2024-03-25 06:05] LABS: Ovalocytes Present
[2024-03-25] MEDS: PANTOPRAZOLE 40 MG TABLET PO SCH (06:30)
--- NOTE | 2024-03-25 07:14 | XR ---
EXAMINATION TYPE: XR chest 1V portable DATE OF EXAM: 03/25/2024 COMPARISON: 10/24/2019 HISTORY: Pneumonia TECHNIQUE: Single frontal view of the chest is obtained. FINDINGS: There is mild interstitial prominence which possibly reflects mild chronic interstitial ch anges and COPD. The heart size is normal for the technique. The pulmonary vasculature is not overtly congested. There is no pneumothorax or definite pleural effusion. IMPRESSION: 1. Findings consistent with COPD in chronic mild interstitial changes. 2. No definite acute cardiopulmonary disease.
[2024-03-25 11:43] LABS: Glucose,Whole Blood 86 mg/dL (70-110)
--- NOTE | 2024-03-25 12:08 | P.PN ---
Subjective Progress Note Date: 03/25/24 Patient is a 8-year-old female who presented to the hospital with shortness of breath. She was diagnosed with a COPD exacerbation as well as sustained atrial fibrillation with RVR. Patient was given a Cardizem drip and subsequently converted back to sinus mechanism. Patient was started on oral beta-blockers and has remained in sinus rhythm thereafter. Occasional brief episodes of PAT/SVT noted on telemetry. Patient states she is feeling much better. She has been up ambulating around her room and she recently took a shower. She denies any dizziness or lightheadedness. No difficulty breathing. GENERAL: Well-appearing, well-nourished and in no acute distress. NECK: Supple without JVD or thyromegaly. LUNGS: Breath sounds clear to auscultation bilaterally. Respiration equal and unlabored. No wheezes, rales or rhonchi. HEART: Regular rate and rhythm. Soft systolic murmur. S1 and S2 heard. EXTREMITIES: Normal range of motion, no edema. No clubbing or cyanosis. Peripheral pulses intact and strong. TELEMETRY: Sinus rhythm. Very brief episodes of SVT overnight IMPRESSION: Paroxysmal atrial fibrillation Left bundle branch block History of cardiomyopathy COPD exacerbation Mitral regurgitation, moderate to severe PLAN: Increase metoprolol to 75 mg twice daily Continue supportive treatment Patient may be discharged from the cardiac standpoint. Outpatient follow-up with primary outside plant technician. I am dictating on behalf of Dr Fer Jiménez's history/physical and assessment/plan. Objective - Vital Signs Vital signs: Vital Signs Temp 98.3 F 03/25/24 09:00 Pulse 82 03/25/24 09:00 Resp 17 03/25/24 09:00 BP 145/67 03/25/24 09:00 Pulse Ox 94 L 03/25/24 09:00 FiO2 Intake & Output 03/24/24 03/25/24 03/25/24 18:59 06:59 18:59 Intake Total 780 Balance 780 Weight 68.039 kg 62.8 kg Intake: Oral 780 Other: Voiding Method Bedside Commode # Voids 1 # Bowel Movements 1 - Labs CBC & Chem 7: 03/25/24 03:34 03/25/24 03:34 Labs: Abnormal Lab Results - Last 24 Hours (Table) 03/24/24 03/25/24 03/25/24 Range/Units 10:06 03:34 03:34 RBC 3.32 L (3.80-5.40) m/uL Hgb 10.1 L (11.4-16.0) gm/dL Hct 31.1 L (34.0-46.0) % Lymphocytes # (Manual) 0.61 L (1.0-4.8) k/uL Myelocytes # (Manual) 0.06 H (0) k/uL Sodium 134 L (137-145) mmol/L Carbon Dioxide 21 L (22-30) mmol/L BUN 48 H (7-17) mg/dL Creatinine 2.41 H (0.52-1.04) mg/dL Glucose 110 H (74-99) mg/dL Calcium 7.7 L (8.4-10.2) mg/dL Microbiology - Last 24 Hours (Table) 03/23/24 11:36 Blood Culture - Preliminary Blood 03/23/24 11:20 Blood Culture - Preliminary Blood 03/23/24 11:35 Gram Stain - Preliminary Sputum
[2024-03-25] MEDS: methylPREDNISolone SOD SUCCI 40 MG/ML 1 ML VIAL IV SCH (12:35)
--- NOTE | 2024-03-25 12:47 | P.PN ---
Subjective Progress Note Date: 03/25/24 This is a very pleasant 88-year-old female patient with a known history of chronic obstructive pulmonary disease, former smoker, atrial fibrillation anticoagulated with Eliquis, hypertension, hypothyroidism. Last night she developed significant shortness of breath, cough and congestion and presented here to the emergency room today for the same. She denies any fever or chills. Clear sputum. No hemoptysis. Chest x-ray reveals mild cardiomegaly and interstitial changes consistent with mild pulmonary vascular congestion superimposed on COPD. Possible new focal opacity in the posterior base on the lateral view. White count 7.4. Hemoglobin 11.7. Platelets 260. Sodium 135. Potassium 4.4. Bicarb 19. BUN 33. Creatinine 1.39. Glucose 151. Troponin 0.192, 0.310. proBNP 5390. Viral screen negative. She is seen today in consultation in the emergency department. She is currently sitting up in a stretcher. Awake and alert in no acute distress. Maintaining O2 saturation in the 90s on room air. The patient is seen today March 24, 2024 in follow-up in the emergency department. She is awake and alert in no acute distress. Breathing a bit easier today compared to yesterday. She is sitting up on the stretcher. Denies any worsening shortness of breath, cough or congestion. He is maintaining good O2 saturations in the 90s on room air. She is afebrile. Hemodynamically stable. Cardiogram reveals mild global decrease in left ventricular systolic function with ejection fraction of 50%. There is moderate to severe mitral and tricuspid regurgitation with moderate pulmonary hypertension. Thickening of the mitral valve leaflets. Sputum culture pending. White count 6.8. Hemoglobin 10.5. Platelets 235. Sodium 135. Potassium 4.1. Bicarb 20. BUN 42. Creatinine 2.07. Procalcitonin was 0.23. She is continued on DuoNeb ventilations, Symbicort. Antibiotics in the form of ceftriaxone. Anticoagulated with Eliquis. Remains on oral diuretics. The patient is seen today March 25, 2024 in follow-up on the selective care unit. She is currently sitting up in a chair. Awake and alert in no acute distress. She denies any worsening shortness of breath, cough or congestion. She remains quite weak overall. She is maintaining good O2 saturation in the 90s on room air. She is anticoagulated with Eliquis. Her procalcitonin was 0.23. She remains on ceftriaxone. Remains on bronchodilators and steroids. Robitussin for her cough. Blood and urine cultures reveal no growth. White count 5.9. Hemoglobin 10.1. Platelets 223. Sodium 134. Potassium 4.6. Bicarb 21. BUN 48. Creatinine 2.41. Glucose 110. Objective - Vital Signs Vital signs: Vital Signs Temp 98.3 F 03/25/24 09:00 Pulse 82 03/25/24 09:00 Resp 17 03/25/24 09:00 BP 145/67 03/25/24 09:00 Pulse Ox 94 L 03/25/24 09:00 FiO2 Intake & Output 03/24/24 03/25/24 03/25/24 18:59 06:59 18:59 Intake Total 780 Balance 780 Weight 68.039 kg 62.8 kg Intake: Oral 780 Other: Voiding Method Bedside Commode # Voids 1 # Bowel Movements 1 - Exam GENERAL EXAM: Alert, 88-year-old female, sitting in a chair, on room air, in no apparent distress. HEAD: Normocephalic. EYES: Normal reaction of pupils, equal size. NOSE: Clear with pink turbinates. THROAT: No erythema or exudates. NECK: No masses, no JVD. CHEST: No chest wall deformity. LUNGS: Equal air entry with crackles in the bilateral bases. CVS: S1 and S2 normal with no audible murmur, regular rhythm. ABDOMEN: No hepatosplenomegaly, normal bowel sounds, no guarding or rigidity. SPINE: No scoliosis or deformity SKIN: No rashes CENTRAL NERVOUS SYSTEM: No focal deficits, tone is normal in all 4 extremities. EXTREMITIES: There is no peripheral edema. No clubbing, no cyanosis. Peripheral pulses are intact. - Labs CBC & Chem 7: 03/25/24 03:34 03/25/24 03:34 Labs: Abnormal Lab Results - Last 24 Hours (Table) 03/24/24 03/25/24 03/25/24 Range/Units 10:06 03:34 03:34 RBC 3.32 L (3.80-5.40) m/uL Hgb 10.1 L (11.4-16.0) gm/dL Hct 31.1 L (34.0-46.0) % Lymphocytes # (Manual) 0.61 L (1.0-4.8) k/uL Myelocytes # (Manual) 0.06 H (0) k/uL Sodium 134 L (137-145) mmol/L Carbon Dioxide 21 L (22-30) mmol/L BUN 48 H (7-17) mg/dL Creatinine 2.41 H (0.52-1.04) mg/dL Glucose 110 H (74-99) mg/dL Calcium 7.7 L (8.4-10.2) mg/dL Microbiology - Last 24 Hours (Table) 03/23/24 11:36 Blood Culture - Preliminary Blood 03/23/24 11:20 Blood Culture - Preliminary Blood 03/23/24 11:35 Gram Stain - Preliminary Sputum Assessment and Plan Assessment: Dyspnea secondary to an acute exacerbation of systolic versus diastolic congestive heart failure. proBNP 5309. COPD exacerbation and follow-up chest x-ray consistent with COPD with chronic mild interstitial changes. No definite acute pulmonary process Acute on chronic atrial fibrillation initially presenting with rapid ventricular response, anticoagulated with Eliquis Troponin leak suspect secondary to above Chronic obstructive pulmonary disease Former heavy smoker Hypertension Hypothyroidism Plan: The patient was seen and evaluated Chest x-ray, labs and medications reviewed Continue ceftriaxone, procalcitonin 0.23 Continue bronchodilators, steroids Add Robitussin as needed Currently stable and on room air We will continue to follow I have personally seen and examined the patient, performed the documentation and the assessment and plan as written. Number of minutes spent on the visit: 10.
[2024-03-25] MEDS ORDERED: DEXTROSE 50% SYRINGE 50 ML IVP PRN ×2 (13:40)
--- NOTE | 2024-03-25 14:11 | PN ---
PROGRESS NOTE DATE OF SERVICE: 03/25/2024 SUBJECTIVE: This is an 88-year-old woman who was admitted with COPD acute exacerbation, atrial fibrillation, is being closely monitored at this time. Multiple consultants are following the patient closely. Most recent chest x-ray which I reviewed personally showed some prominent right hilum and may be some features of CHF also. A 2D echo done yesterday showed mild global decrease in ejection fraction about 50% and multiple minimal bile abnormalities also. PAST MEDICAL HISTORY: Reviewed. REVIEW OF SYSTEMS: A 14-point review is negative. CURRENT MEDICATIONS: Reviewed include DuoNeb, dose and rest of medications noted. PHYSICAL EXAMINATION: VITAL SIGNS: Pulse 82, blood pressure 140/60, respirations 17. HEENT: Conjunctivae normal. CARDIOVASCULAR: S1, S2. RESPIRATIONS: Few scattered rhonchi and crackles. ABDOMEN: Soft. NERVOUS SYSTEM: Nonfocal. LABORATORY DATA: Creatinine is 2.41. ASSESSMENT: 1. Chronic obstructive pulmonary disease acute exacerbation with acute left lower pneumonia possibly. 2. Atrial fibrillation with fast ventricular rate. 3. Troponin 0.310, possible acute [id number] elevation myocardial infarction. 4. CHF acute exacerbation, acute on chronic systolic dysfunction, ejection fraction about 50%. 5. Elevated procalcitonin. 6. Chronic kidney stage 3. 7. Hypertension. 8. Multiple complex medical issues. RECOMMENDATIONS AND DISCUSSION: I recommend to continue current management, continue symptomatic treatment. Continue the bronchodilators, renal function slightly worsened. Today we will also obtain nephrology consultation, otherwise continue rest of medication, bronchodilators. The patient is on empiric antibiotics. Guarded prognosis. Further recommendations to follow. Repeat labs will be ordered. The patient is not on any diuretics at this time. Taper the steroids. MMODL / IJN: [id number] /
[2024-03-25 17:11] LABS: Glucose,Whole Blood 176 mg/dL (70-110)
[2024-03-25] MEDS: INSULIN ASPART (NovoLOG) 100 UNIT/ML VIAL SQ SCH (17:23)
[2024-03-25 20:11] LABS: Glucose,Whole Blood 197 mg/dL (70-110)
[2024-03-25] MEDS: METOPROLOL TARTRATE 25 MG TAB PO SCH (20:22)
[2024-03-25] MEDS: guaiFENesin-Coden 100-10MG/5ML 10 ML CUP PO PRN (22:04)
[2024-03-25 23:59] VITALS: RESP 18
[2024-03-26 06:23] LABS: Glucose,Whole Blood 155 mg/dL (70-110)
[2024-03-26 08:33] VITALS: TEMP 98
[2024-03-26 09:15] LABS: HGB 10.6 g/dL (12.0-17.0); MCH 29.8 pg (27.0-32.0); MCHC 33.1 g/dL (32.0-37.0); MCV 89.9 FL (80.0-97.0); Mean Platelet Volume 10.4 FL (9.5-12.2); NRBC Per 100 WBC 0 X 10*3/uL (0.00-0.01); Platelet Count 248 X 10*3/uL (140-440); RBC 3.56 X 10*6/uL (4.10-5.60); RDW 13.7 % (11.5-14.5); WBC 1.74 X 10*3/uL (4.50-10.00)
[2024-03-26 09:24] LABS: BUN/Creat Ratio 26.65 Ratio (12.00-20.00); Blood Urea Nitrogen 45.3 mg/dL (9.0-27.0); Calcium 8.4 mg/dL (8.7-10.3); Carbon Dioxide 21.7 mmol/L (21.6-31.8); Chloride 102 mmol/L (96-109); Glucose 170 mg/dL (70-110); Potassium 4.7 mmol/L (3.5-5.5); Sodium 139 mmol/L (135-145)
[2024-03-26 10:17] LABS: Basophils # (M) 0 X 10*3/uL (0.00-0.10)
--- NOTE | 2024-03-26 10:30 | P.NPCON ---
History of Present Illness - Reason for Consult acute renal failure - History of Present Illness patient is an 88-year-old female with history of COPD was admitted to the hospital with complaints of shortness of breath and cough. Patient was also noted to be in A. fib with RVR and chest x-ray showed left lower lobe pneumonia. Patient was febrile with a temp of 10 1F. serum creatinine 1.3 on initial admission and increased to 2.4 yesterday. Today it is down to 1.7. Previous creatinine 1.1 on 12/30/2021 Blood pressure was low with systolic in the 90s on initial admission. Maintained on losartan and hydrochlorothiazide prior to admission. Patient has been voiding. status post IV fluids. Motrin noted on med list, now discontinued. Past Medical History Past Medical History: Hypertension, Respiratory Disorder Additional Past Medical History / Comment(s): 50 year smoking history however quit in 1999. Numbness and tingling of the bilateral feet. patient states she recalls being told she has an irregular heart rhythm but she doesn't remember when History of Any Multi-Drug Resistant Organisms: None Reported Past Surgical History: Orthopedic Surgery, Tonsillectomy, Tubal Ligation Additional Past Surgical History / Comment(s): right hip replacement, cataract surgery Past Anesthesia/Blood Transfusion Reactions: No Reported Reaction Past Psychological History: No Psychological Hx Reported Smoking Status: Former smoker Past Alcohol Use History: None Reported Past Drug Use History: None Reported Medications and Allergies Home Medications Medication Instructions Recorded Confirmed Type Gabapentin [Neurontin] 100 mg PO BID@04/19/19 03/23/24 History Levothyroxine Sodium 12.5 mcg PO DAILY 04/19/19 03/23/24 History Albuterol Nebulized [Ventolin 2.5 mg INHALATION RT-QID PRN 10/21/19 03/23/24 History Nebulized] Albuterol Inhaler [Ventolin Hfa 1 - 2 puff INHALATION RT-QID PRN 03/23/24 03/23/24 History Inhaler] Apixaban [Eliquis] 2.5 mg PO BID 03/23/24 03/23/24 History Fluticasone/Umeclidin/Vilanter 1 puff INHALATION RT-DAILY 03/23/24 03/23/24 History [Trelegy Ellipta 100-62.5-25] Gabapentin [Neurontin] 300 mg PO HS@2229 03/23/24 03/23/24 History Losartan [Cozaar] 25 mg PO DAILY 03/23/24 03/23/24 History hydroCHLOROthiazide 12.5 mg PO DAILY 03/23/24 03/23/24 History Allergies Allergy/AdvReac Type Severity Reaction Status Date / Time Penicillins Allergy Rash/Hives Verified 03/23/24 11:44 Physical Exam Vitals: Vital Signs Temp Pulse Resp BP Pulse Ox 03/26/24 08:42 94 L 03/26/24 07:25 98.0 F 65 18 135/55 95 03/26/24 00:15 97.8 F 61 18 133/71 94 L 03/25/24 19:00 96.4 F L 74 18 158/72 97 03/25/24 17:32 97.5 F L 76 17 150/55 96 03/25/24 12:35 75 17 149/66 100 Intake and Output 03/25/24 03/26/24 03/26/24 22:59 06:59 14:59 Other: # Voids 2 1 Weight 61 kg patient is awake, comfortable. She is quite hard of hearing. Examination of the heart S1 and S2 Examination of the lungs bilateral breath sounds are heard Examination of the abdomen reveals it to be soft Examination of lower extremity shows no evidence of edema [employer] exam grossly intact Results - Lab Results Most recent lab results Calcium 8.4 mg/dL (8.7-10.3) L 03/26/24 04:41 Magnesium 2.1 mg/dL (1.6-2.3) 03/23/24 10:22 03/26/24 04:41 03/26/24 04:41 Assessment and Plan Assessment: 1. Acute kidney injury, ATN, nonoliguric secondary to hypotension in the setting of use of angiotensin receptor blockers. Patient also received a dose of NSAIDs, now discontinued. Renal function has improved. Currently not on IV fluids. UA shows 1+ protein and trace blood. 2. Left lung pneumonia maintained on antibiotics 3. COPD with acute exacerbation maintained on IV steroids 4. A. fib with RVR now with controlled ventricular response. Plan: continue off of angiotensin receptor blockers and diuretics. Check ultrasound of the kidneys Add IV fluids if renal function not further improved. Thank you for the consultation. We will continue to follow the patient with you during her hospitalization.
[2024-03-26 11:28] LABS: Glucose,Whole Blood 170 mg/dL (70-110)
[2024-03-26 11:59] LABS: Eosinophils # (M) 0.03 X 10*3/uL (0.04-0.35); Lymphocytes # (M) 0.56 X 10*3/uL (0.90-5.00); Metamyelocytes % 1 % (0-0); Monocytes # (M) 0.14 X 10*3/uL (0.20-1.00); Myelocytes % 3 % (0-0); Neutrophils # (M) 0.92 X 10*3/uL (1.80-7.70); Neutrophils % (M) 53 %; Nucleated Red Blood Cells 5 /100 WBCS; Promyelocytes # (M) 0.02 k/uL (0); Promyelocytes % 1 %; RBC Morphology Normal (Normal)
--- NOTE | 2024-03-26 13:32 | DS ---
DISCHARGE SUMMARY FINAL DIAGNOSES: 1. Chronic obstructive pulmonary disease acute exacerbation with acute left lower lobe pneumonia possibly. 2. Atrial fibrillation with fast ventricular rate. 3. Troponin 0.310, possible acute zhq-UM-vxszrao-elevation myocardial infarction. 4. Congestive heart failure acute exacerbation, acute on chronic systolic dysfunction, ejection fraction 50%. 5. Elevated procalcitonin. 6. Chronic kidney disease, stage 3. 7. Hypertension. 8. Multiple complex medical issues. DISCHARGE DISPOSITION: The patient will be discharged in stable condition with guarded prognosis. HISTORY OF PRESENT ILLNESS: This is an 88-year-old woman with a past medical history of multiple medical problems including COPD and multiple medical problems. The patient was treated aggressively with bronchodilators. The patient improved significantly. Multiple consultants saw the patient and recommended outpatient followup. Creatinine was 1.7. PHYSICAL EXAMINATION: VITAL SIGNS: Stable. CARDIOVASCULAR: S1, S2. ABDOMEN: Soft. NERVOUS SYSTEM: No focal deficit. The patient will be discharged in the bronchodilators, tapering steroids, and short course of Ceftin. Follow up with Dr. Miguel Kumari and follow with Dr. Bundy as recommended. MMODL / IJN: [id number] /
--- NOTE | 2024-03-26 14:20 | P.PN ---
Subjective Progress Note Date: 03/26/24 This is a very pleasant 88-year-old female patient with a known history of chronic obstructive pulmonary disease, former smoker, atrial fibrillation anticoagulated with Eliquis, hypertension, hypothyroidism. Last night she developed significant shortness of breath, cough and congestion and presented here to the emergency room today for the same. She denies any fever or chills. Clear sputum. No hemoptysis. Chest x-ray reveals mild cardiomegaly and interstitial changes consistent with mild pulmonary vascular congestion superimposed on COPD. Possible new focal opacity in the posterior base on the lateral view. White count 7.4. Hemoglobin 11.7. Platelets 260. Sodium 135. Potassium 4.4. Bicarb 19. BUN 33. Creatinine 1.39. Glucose 151. Troponin 0.192, 0.310. proBNP 5390. Viral screen negative. She is seen today in consultation in the emergency department. She is currently sitting up in a stretcher. Awake and alert in no acute distress. Maintaining O2 saturation in the 90s on room air. The patient is seen today March 24, 2024 in follow-up in the emergency department. She is awake and alert in no acute distress. Breathing a bit easier today compared to yesterday. She is sitting up on the stretcher. Denies any worsening shortness of breath, cough or congestion. He is maintaining good O2 saturations in the 90s on room air. She is afebrile. Hemodynamically stable. Cardiogram reveals mild global decrease in left ventricular systolic function with ejection fraction of 50%. There is moderate to severe mitral and tricuspid regurgitation with moderate pulmonary hypertension. Thickening of the mitral valve leaflets. Sputum culture pending. White count 6.8. Hemoglobin 10.5. Platelets 235. Sodium 135. Potassium 4.1. Bicarb 20. BUN 42. Creatinine 2.07. Procalcitonin was 0.23. She is continued on DuoNeb ventilations, Symbicort. Antibiotics in the form of ceftriaxone. Anticoagulated with Eliquis. Remains on oral diuretics. The patient is seen today March 25, 2024 in follow-up on the selective care unit. She is currently sitting up in a chair. Awake and alert in no acute distress. She denies any worsening shortness of breath, cough or congestion. She remains quite weak overall. She is maintaining good O2 saturation in the 90s on room air. She is anticoagulated with Eliquis. Her procalcitonin was 0.23. She remains on ceftriaxone. Remains on bronchodilators and steroids. Robitussin for her cough. Blood and urine cultures reveal no growth. White count 5.9. Hemoglobin 10.1. Platelets 223. Sodium 134. Potassium 4.6. Bicarb 21. BUN 48. Creatinine 2.41. Glucose 110. The patient is seen today March 26, 2024 in follow-up on the regular medical floor. She is currently sitting up in bed. Awake and alert in no acute distress. She denies any worsening shortness of breath, cough or congestion. She is maintaining good O2 saturations in the 90s on room air. She remains on DuoNeb inhalations, Symbicort, Solu-Medrol. Anticoagulated with Eliquis. Remains on ceftriaxone. Blood and sputum cultures revealed no growth. White count 1.7. Hemoglobin 10.6. Platelets 248. Sodium 139. Potassium 4.7. Bicarb 22. BUN 45. Creatinine 1.7. Glucose 170. Hemoglobin A1c 6.2%. Objective - Vital Signs Vital signs: Vital Signs Temp 98.0 F 03/26/24 07:25 Pulse 65 03/26/24 07:25 Resp 18 03/26/24 07:25 BP 135/55 03/26/24 07:25 Pulse Ox 94 L 03/26/24 08:42 FiO2 Intake & Output 03/25/24 03/26/24 03/26/24 18:59 06:59 18:59 Intake Total 780 Balance 780 Weight 61 kg Intake: Oral 780 Other: Voiding Method Bedside Commode # Voids 2 1 - Exam GENERAL EXAM: Alert, pleasant 88-year-old female, resting in bed, on room air, in no apparent distress. HEAD: Normocephalic. EYES: Normal reaction of pupils, equal size. NOSE: Clear with pink turbinates. THROAT: No erythema or exudates. NECK: No masses, no JVD. CHEST: No chest wall deformity. LUNGS: Equal air entry with crackles in the bilateral bases. CVS: S1 and S2 normal with no audible murmur, regular rhythm. ABDOMEN: No hepatosplenomegaly, normal bowel sounds, no guarding or rigidity. SPINE: No scoliosis or deformity SKIN: No rashes CENTRAL NERVOUS SYSTEM: No focal deficits, tone is normal in all 4 extremities. EXTREMITIES: There is no peripheral edema. No clubbing, no cyanosis. Peripheral pulses are intact. - Labs CBC & Chem 7: 03/26/24 04:41 03/26/24 04:41 Labs: Abnormal Lab Results - Last 24 Hours (Table) 03/25/24 03/25/24 03/26/24 Range/Units 17:10 20:09 04:41 WBC (4.50-10.00) X 10*3/uL RBC (4.10-5.60) X 10*6/uL Hgb (12.0-17.0) g/dL Hct (37.2-50.0) % Neutrophils # (Manual) (1.80-7.70) X 10*3/uL Lymphocytes # (Manual) (0.90-5.00) X 10*3/uL Monocytes # (Manual) (0.20-1.00) X 10*3/uL Eosinophils # (Manual) (0.04-0.35) X 10*3/uL Anion Gap (4.00-12.00) mmol/L BUN (9.0-27.0) mg/dL Creatinine (0.6-1.5) mg/dL Est GFR (CKD-EPI) (>=60) BUN/Creatinine Ratio (12.00-20.00) Ratio Glucose (70-110) mg/dL POC Glucose (mg/dL) 176 H 197 H (70-110) mg/dL Hemoglobin A1c 6.2 H (<=6.0) % Calcium (8.7-10.3) mg/dL 03/26/24 03/26/24 03/26/24 Range/Units 04:41 04:41 06:20 WBC 1.74 L (4.50-10.00) X 10*3/uL RBC 3.56 L (4.10-5.60) X 10*6/uL Hgb 10.6 L (12.0-17.0) g/dL Hct 32.0 L (37.2-50.0) % Neutrophils # (Manual) 0.92 L (1.80-7.70) X 10*3/uL Lymphocytes # (Manual) 0.56 L (0.90-5.00) X 10*3/uL Monocytes # (Manual) 0.14 L (0.20-1.00) X 10*3/uL Eosinophils # (Manual) 0.03 L (0.04-0.35) X 10*3/uL Anion Gap 15.30 H (4.00-12.00) mmol/L BUN 45.3 H (9.0-27.0) mg/dL Creatinine 1.7 H (0.6-1.5) mg/dL Est GFR (CKD-EPI) 28 L (>=60) BUN/Creatinine Ratio 26.65 H (12.00-20.00) Ratio Glucose 170 H (70-110) mg/dL POC Glucose (mg/dL) 155 H (70-110) mg/dL Hemoglobin A1c (<=6.0) % Calcium 8.4 L (8.7-10.3) mg/dL 03/26/24 Range/Units 11:27 WBC (4.50-10.00) X 10*3/uL RBC (4.10-5.60) X 10*6/uL Hgb (12.0-17.0) g/dL Hct (37.2-50.0) % Neutrophils # (Manual) (1.80-7.70) X 10*3/uL Lymphocytes # (Manual) (0.90-5.00) X 10*3/uL Monocytes # (Manual) (0.20-1.00) X 10*3/uL Eosinophils # (Manual) (0.04-0.35) X 10*3/uL Anion Gap (4.00-12.00) mmol/L BUN (9.0-27.0) mg/dL Creatinine (0.6-1.5) mg/dL Est GFR (CKD-EPI) (>=60) BUN/Creatinine Ratio (12.00-20.00) Ratio Glucose (70-110) mg/dL POC Glucose (mg/dL) 170 H (70-110) mg/dL Hemoglobin A1c (<=6.0) % Calcium (8.7-10.3) mg/dL Microbiology - Last 24 Hours (Table) 03/23/24 11:35 Gram Stain - Final Sputum Sputum Culture - Final 03/23/24 11:36 Blood Culture - Preliminary Blood 03/23/24 11:20 Blood Culture - Preliminary Blood Assessment and Plan Assessment: Dyspnea secondary to an acute exacerbation of systolic versus diastolic congestive heart failure. proBNP 5309. COPD exacerbation and follow-up chest x-ray consistent with COPD with chronic mild interstitial changes. No definite acute pulmonary process Acute on chronic atrial fibrillation initially presenting with rapid ventricular response, anticoagulated with Eliquis Troponin leak suspect secondary to above Chronic obstructive pulmonary disease Former heavy smoker Hypertension Hypothyroidism Plan: The patient was seen and evaluated Labs and medications reviewed Currently stable and on room air For discharge from the pulmonary standpoint Resume her home Trelegy, Ventolin HFA Complete a course of antibiotics Complete a prednisone taper Follow-up in our office in 1 week I have personally seen and examined the patient, performed the documentation and the assessment and plan as written. Number of minutes spent on the visit: 10.
[2024-03-26 14:58] VITALS: BP 123/56; PULSE 63
[2024-03-26] MEDS: METOPROLOL TARTRATE 50 MG TAB PO ONE (16:48)
== END 2024-03-26 16:58 | disposition home or self-care (01) | DRG 280 ==
LOC: EC 09:59 → 3SCARD 14:50 → 4SSUR 03-25 16:58
PROVIDERS: ADMIT Hospitalist; ATTEND Hospitalist
DX: I13.0 Hypertensive heart and chronic kidney disease with heart failure and stage 1 through stage 4 chronic kidney disease, or unspecified chronic kidney disease (principal); I50.23 Acute on chronic systolic (congestive) heart failure; I21.4 Non-ST elevation (NSTEMI) myocardial infarction; J18.9 Pneumonia, unspecified organism; N17.0 Acute kidney failure with tubular necrosis; J44.0 Chronic obstructive pulmonary disease with (acute) lower respiratory infection; J44.1 Chronic obstructive pulmonary disease with (acute) exacerbation; I47.19 Other supraventricular tachycardia; I48.0 Paroxysmal atrial fibrillation; I95.9 Hypotension, unspecified; N18.30 Chronic kidney disease, stage 3 unspecified; M19.90 Unspecified osteoarthritis, unspecified site; I44.7 Left bundle-branch block, unspecified; I42.9 Cardiomyopathy, unspecified; I27.20 Pulmonary hypertension, unspecified; I08.1 Rheumatic disorders of both mitral and tricuspid valves; E03.9 Hypothyroidism, unspecified; Z96.641 Presence of right artificial hip joint; Z79.01 Long term (current) use of anticoagulants; Z28.310 Unvaccinated for COVID-19; Z88.0 Allergy status to penicillin; Z79.890 Hormone replacement therapy; Z79.899 Other long term (current) drug therapy; Z87.891 Personal history of nicotine dependence
CPT/HCPCS: 36415; 71045; 71046; 80048; 80053; 81001; 83036; 83605; 83735; 83880; 84145; 84443; 84484; 85025; 85610; 85730; 87040; 87070; 87205; 87449; 87636; 93005; 93306; 94640; 94760; 96361; 96365; 96366; 96367; 96375; 99285